=== PATIENT | female | born 1965 | race Caucasian/White ===

== ENCOUNTER 2018-07-26 09:42 | Emergency (ER) | payer OTHER ==
--- OUTSIDE RECORDS SUMMARY | 2018-07-26 09:46 | XMS REPORT ---
:1965 [facility] Address [facility] [address] Sam [address] [place] [address] Care Team Providers Name Role Phone ZHANG JEFFERY Unavailable Unavailable Problems This patient has no known problems. Allergies, Adverse Reactions, Alerts This patient has no known allergies or adverse reactions. Medications This patient has no known medications. Results Test Description Test Time Test Comments Text Results Atomic Results Result Comments FLOW PRA CLASS I AND II 2017-08-05 14:51:00 Test Item Value Reference Range Comments DATE OF SERUM (BEAKER) (test cutr=8127) [id number] SERUM # (BEAKER) (test exir=3587) [id number] FLOW PRA CLASS I AND II (test gcwt=6793) See Scanned Report HEPATITIS B SURFACE [id number] 14:25:00 Test Item Value Reference Range Comments HEPATITIS B SURFACE ANTIBODY (BEAKER) (test 32.5 mIU/mL <8.0 qqzk=750) FLOW PRA CLASS I AND [id number] 13:52:00 Test Item Value Reference Range Comments DATE OF SERUM (BEAKER) (test ywow=4142) [id number] SERUM # (BEAKER) (test jgcm=6039) [id number] FLOW PRA CLASS I AND II (test ztte=5911) See Scanned Report FLOW PRA CLASS I AND [id number] 12:30:00 Test Item Value Reference Range Comments DATE OF SERUM (BEAKER) (test wwex=2189) [id number] SERUM # (BEAKER) (test utre=0415) [id number] FLOW PRA CLASS I AND II (test xxho=0391) See Scanned Report
--- OUTSIDE RECORDS SUMMARY | 2018-07-26 09:46 | XMS REPORT | Clinical Summary ---
:1965 Author Organization [facility] Address [address] [place] [address] Phone Care Team Providers Name Role Phone Unavailable Primary Care Provider Unavailable Allergies No Known Allergies Current Medications Prescription Sig. Disp. Refills Start Date End Date Status amLODIPine (NORVASC) 10 Take 10 mg by mouth Active MG tablet daily On non-dialysis days only. aspirin 81 MG EC tablet Take 81 mg by mouth Active daily. carvedilol (COREG) 6.25 Take 12.5 mg by Active MG tablet mouth daily . lidocaine-prilocaine Apply topically as Active (EMLA) 2.5-2.5 % cream needed (on dialysis days, apply to access arm before tx). calcium Take 1 tablet by Active carbonate-vitamin D3 mouth 3 (three) (CALCIUM-VITAMIN D) 500 times daily with mg(1,250mg) -200 unit meals. per tablet pantoprazole (PROTONIX) Take 40 mg by mouth Active 40 MG tablet daily. sevelamer (RENVELA) 800 Take 1,600 mg by Active mg tablet mouth 3 (three) times daily with meals 2 tablets with all meals and 1 tablet 2 times daily with snacks . calcium carbonate Take 1 tablet by Active (CALCIUM CARBONATE) 300 mouth 3 (three) mg Chew times daily . FOLIC ACID/VITAMIN B Take by mouth daily. Active COMP W-C (CHRISTOPHER-ARNOLDO ORAL) venlafaxine (EFFEXOR) 75 Take 75 mg by mouth Active MG tablet daily. Active Problems Patient Care Coordination Note PCP- Maynor MCDONOUGH No additional problems on file Encounters Date Type Specialty Care Team Description 11/12/2017 Orders Only Lab Elisabeth Smith ESRD (end stage renal Julia, disease) (HCC) (Primary Dx);Patient awaiting renal transplant 08/03/2017 Lab Requisition Lab Saran Rodríguez MD after 07/25/2017 Social History Tobacco Use Types Packs/Day Years Used Date Never Smoker Sex Assigned at Date Recorded Not on file Last Filed Vital Signs Not on file Plan of Treatment Date Type Specialty Care Team Description 09/21/2018 Evaluation Transplant Health Maintenance Due Date Last Done Comments INFLUENZA VACCINE 07/04/2018 Results Flow PRA Class II (05/27/2018 3:16 PM)Only the most recent of2 resultswithin the time period is included. Component Value Ref Range Flow Class II Percent Positive 0 Flow Class Report Comments Specimen Performing Laboratory Blood [facility] ONE Dusty Hancock, MS: [id number], CLIA#[id number] CAP#[id number] [id number] [address] Narrative Disclaimer: This test was developed and its performance characteristics determined by the [facility]. It has not been cleared or approved by the U.S. Food and Drug Administration. The FDA has determined that such clearance or approval is not necessary. This test is used for clinical purposes. It should not be regarded as investigational or for research. This laboratory is certified under the Clinical Laboratory Improvement Amendments of 1988 (CLIA-88) as qualified to perform high complexity clinical laboratory testing. Flow PRA Class I (05/27/2018 3:16 PM)Only the most recent of2 resultswithin the time period is included. Component Value Ref Range Flow Class I Percent Positive 0 Flow Class Report Comments Specimen Performing Laboratory Blood [facility] Dusty Hancock, MS: [id number], CLIA#[id number] CAP#[id number] [id number] [id number] Narrative Disclaimer: This test was developed and its performance characteristics determined by the [facility]. It has not been cleared or approved by the U.S. Food and Drug Administration. The FDA has determined that such clearance or approval is not necessary. This test is used for clinical purposes. It should not be regarded as investigational or for research. This laboratory is certified under the Clinical Laboratory Improvement Amendments of 1988 (CLIA-88) as qualified to perform high complexity clinical laboratory testing. Flow PRA Class I and II (07/28/2017 12:00 PM) Component Value Ref Range Date of Serum [id number] Serum# [id number] Flow PRA Class I and II See Scanned Report Specimen Performing Laboratory Blood [facility] IMMUNE EVALUATION LAB [facility] One [facility] Karissa, MS:[facility] [address] [place] [address] after 07/25/2017
--- NOTE | 2018-07-26 10:01 | ER ---
Nurse's Notes [facility] Name: Poonam Meredith Age: 53 yrs Sex: Female : 1965 Arrival Date: 07/26/2018 Time: 09:46 Bed 18 Private MD: Ar Raygoza S Diagnosis: Allergic contact dermatitis due to plants, except food Presentation: 07/26 09:49 Presenting complaint: Patient states: I got poison elizabeth an week ago and its just getting la1 worse. Transition of care: patient was not received from another setting of care. Onset of symptoms was July 26, 2018. Risk Assessment: Do you want to hurt yourself or someone else? Patient reports no desire to harm self or others. Initial Sepsis Screen: Does the patient meet any 2 criteria? No. Patient's initial sepsis screen is negative. Does the patient have a suspected source of infection? No. Patient's initial sepsis screen is negative. Care prior to arrival: None. 09:49 Method Of Arrival: Ambulatory la1 09:49 Acuity: MAXWELL 5 la1 Triage Assessment: 09:53 General: Appears in no apparent distress. uncomfortable, Behavior is calm, cooperative, bp appropriate for age. Pain: Denies pain. Derm: Rash noted that is vesicular, on right arm and left arm. 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 - Social history:: Smoking status: Patient/guardian denies using tobacco. - Ebola Screening: : No symptoms or risks identified at this time. Screenin:55 Abuse screen: Denies threats or abuse. Denies injuries from another. Nutritional bp screening: No deficits noted. Tuberculosis screening: No symptoms or risk factors identified. Fall Risk None identified. Assessment: 09:54 General: SEE TRIAGE NOTE. VESICULAR RASH ON BUE AFTER POISON ELIZABETH EXPOSURE. bp 10:08 Reassessment: PT D/C HOME AMBULATORY, DX WITH POISON ELIZABETH CONTACT DERMATITIS. bp Vital Signs: 09:50 BP 193 / 98; Pulse 78; Resp 16; Temp 98.0(TE); Pulse Ox 98% on R/A; Weight 61.23 kg; la1 Height 5 ft. 2 in. (157.48 cm); 09:50 Body Mass Index 24.69 (61.23 kg, 157.48 cm) la1 ED Course: 09:46 Patient arrived in ED. mr 09:47 Ar Raygoza MD is Private Physician. mr 09:49 Triage completed. la1 09:50 Renetta Castaneda FNP-C is [facility]. kb 09:50 Nicolas Melara MD is Attending Physician. kb 09:50 Arm band placed on right wrist. la1 09:51 Jimmy Coats, RN is Primary Nurse. bp 09:55 Patient has correct armband on for positive identification. Bed in low position. Call bp light in reach. Side rails up X2. 09:55 No provider procedures requiring assistance completed. Patient did not have IV access bp during this emergency room visit. Administered Medications: No medications were administered Outcome: 10:01 Discharge ordered by . kb 10:08 Discharged to home ambulatory. bp 10:08 Condition: stable 10:08 Discharge instructions given to patient, Instructed on discharge instructions, follow up and referral plans. medication usage, Demonstrated understanding of instructions, follow-up care, medications, Prescriptions given X 1. 10:09 Patient left the ED. bp Signatures: Renetta Castaneda FNP-C FNP-Opal Lakeshia EscuderoAncelmo, RN RN la1 Jimmy Coats, RN RN bp
--- NOTE | 2018-07-26 10:01 | EDPHYS ---
Physician Documentation [facility] Name: Poonam Mreedith Age: 53 yrs Sex: Female : 1965 Arrival Date: 07/26/2018 Time: 09:46 Bed 18 Private MD: Ar Raygoza S ED Physician Nicolas Melara HPI: 07/26 09:59 This 53 yrs old Female presents to ER via Ambulatory with complaints of kb Poison Soha. 09:59 The patient's rash thought to be caused by Contact allergy. The rash is located on the kb left arm and right arm. The rash can be described as macular, papular. Onset: The symptoms/episode began/occurred 1 week(s) ago. Associated signs and symptoms: Pertinent positives: itching. Severity of symptoms: At their worst the symptoms were moderate in the emergency department the symptoms are unchanged. Treatment given at home: Benadryl. The patient has experienced similar episodes in the past, a few times. The patient has not recently seen a physician. 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 - Social history:: Smoking status: Patient/guardian denies using tobacco. - Ebola Screening: : No symptoms or risks identified at this time. ROS: 09:58 Constitutional: Negative for fever, chills, and weight loss, Cardiovascular: Negative kb for chest pain, palpitations, and edema, Respiratory: Negative for shortness of breath, cough, wheezing, and pleuritic chest pain, Abdomen/GI: Negative for abdominal pain, nausea, vomiting, diarrhea, and constipation, Back: Negative for injury and pain, : Negative for injury, bleeding, discharge, and swelling, MS/Extremity: Negative for injury and deformity, Neuro: Negative for headache, weakness, numbness, tingling, and seizure. 09:58 Skin: Positive for rash, of the right arm and left arm. Exam: 09:58 Constitutional: This is a well developed, well nourished patient who is awake, alert, kb and in no acute distress. Head/Face: Normocephalic, atraumatic. Chest/axilla: Normal chest wall appearance and motion. Nontender with no deformity. No lesions are appreciated. Cardiovascular: Regular rate and rhythm with a normal S1 and S2. No gallops, murmurs, or rubs. Normal PMI, no JVD. No pulse deficits. Respiratory: Lungs have equal breath sounds bilaterally, clear to auscultation and percussion. No rales, rhonchi or wheezes noted. No increased work of breathing, no retractions or nasal flaring. Abdomen/GI: Soft, non-tender, with normal bowel sounds. No distension or tympany. No guarding or rebound. No evidence of tenderness throughout. MS/ Extremity: Pulses equal, no cyanosis. Neurovascular intact. Full, normal range of motion. Neuro: Awake and alert, GCS 15, oriented to person, place, time, and situation. Cranial nerves II-XII grossly intact. Motor strength 5/5 in all extremities. Sensory grossly intact. Cerebellar exam normal. Normal gait. 09:58 Skin: consistent with contact dermatitis, on the right arm and left arm. Vital Signs: 09:50 BP 193 / 98; Pulse 78; Resp 16; Temp 98.0(TE); Pulse Ox 98% on R/A; Weight 61.23 kg; la1 Height 5 ft. 2 in. (157.48 cm); 09:50 Body Mass Index 24.69 (61.23 kg, 157.48 cm) la1 MDM: 09:51 Patient medically screened. kb 09:59 Data reviewed: vital signs, nurses notes. Data interpreted: Pulse oximetry: on room air kb is 98 %. Interpretation: normal. Counseling: I had a detailed discussion with the patient and/or guardian regarding: the historical points, exam findings, and any diagnostic results supporting the discharge/admit diagnosis, the need for outpatient follow up, a family practitioner, to return to the emergency department if symptoms worsen or persist or if there are any questions or concerns that arise at home. Administered Medications: No medications were administered Disposition: 18:40 Co-signature as Attending Physician, Nicolas Melara MD available for consultation at ps1 all times. Disposition: 07/26/18 10:01 Discharged to Home. Impression: Allergic contact dermatitis due to plants, except food. - Condition is Stable. - Discharge Instructions: Poison Soha Dermatitis, [id number]. - Prescriptions for Prednisone 20 mg Oral Tablet - take 1 tablet by ORAL route once daily for 5 days; 5 tablet. - Medication Reconciliation Form, Thank You Letter, Antibiotic Education, Prescription Opioid Use form. - Follow up: Emergency Department; When: As needed; Reason: Worsening of condition. Follow up: Private Physician; When: 2 - 3 days; Reason: Recheck today's complaints, Continuance of care, Re-evaluation by your physician. Signatures: Renetta Castaneda FNP-C FNP-Ancelmo Villaseñor RN RN la1 Jimmy Coats RN RN bp Nicolas Melara MD MD ps1 Corrections: (The following items were deleted from the chart) 10:09 10:01 07/26/2018 10:01 Discharged to Home. Impression: Allergic contact dermatitis due bp to plants, except food. Condition is Stable. Forms are Medication Reconciliation Form, Thank You Letter, Antibiotic Education, Prescription Opioid Use. Follow up: Emergency Department; When: As needed; Reason: Worsening of condition. Follow up: Private Physician; When: 2 - 3 days; Reason: Recheck today's complaints, Continuance of care, Re-evaluation by your physician. kb
[2018-07-26 10:22] VITALS: BP 193/98; TEMP 98; O2SAT 98
== END 2018-07-26 10:09 | disposition home or self-care (01) ==
LOC: ER 09:42
DX: L23.7 Allergic contact dermatitis due to plants, except food (principal)
CPT/HCPCS: 99282

== ENCOUNTER 2019-03-18 10:23 | Emergency (ER) | payer OTHER ==
--- OUTSIDE RECORDS SUMMARY | 2019-03-18 10:26 | XMS REPORT | Clinical Summary ---
:1965 Author Organization [facility] Address [address] [place] [address] Care Team Providers Name Role Phone Pcp, No Primary Care Provider Unavailable Allergies No Known Allergies Medications Medication Sig Dispensed Refills Start Date End Date Status amLODIPine (NORVASC) Take 10 mg by 0 Active 10 MG tablet mouth daily On non-dialysis days only. aspirin 81 MG EC Take 81 mg by 0 Active tablet mouth daily. carvedilol (COREG) Take 12.5 mg by 0 Active 6.25 MG tablet mouth daily . lidocaine-prilocaine Apply topically as 0 Active (EMLA) 2.5-2.5 % cream needed (on dialysis days, apply to access arm before tx). calcium Take 1 tablet by 0 Active carbonate-vitamin D3 mouth 3 (three) (CALCIUM-VITAMIN D) times daily with 500 mg(1,250mg) -200 meals. unit per tablet pantoprazole Take 40 mg by 0 Active (PROTONIX) 40 MG mouth daily. tablet sevelamer (RENVELA) Take 1,600 mg by 0 Active 800 mg tablet mouth 3 (three) times daily with meals 2 tablets with all meals and 1 tablet 2 times daily with snacks . calcium carbonate Take 1 tablet by 0 Active (CALCIUM CARBONATE) mouth 3 (three) 300 mg Chew times daily . FOLIC ACID/VITAMIN B Take by mouth 0 Active COMP W-C (CHRISTOPHER-ARNOLDO daily. ORAL) venlafaxine (EFFEXOR) Take 75 mg by 0 Active 75 MG tablet mouth daily. Active Problems Patient Care Coordination Note PCP- Maynor MCDONOUGH No additional problems on file Encounters Date Type Specialty Care Team Description 10/19/2018 Evaluation Transplant Elisabeth Smith Awaiting transplantation of MD Julia kidney (Primary Dx) Alesha Rucker MD 10/08/2018 Orders Only Transplant Phyllis Adame RN Awaiting transplantation of kidney (Primary Dx) 09/19/2018 Telephone Transplant ClaudeSilvanacamilo Appointment 07/28/2018 Orders Only Transplant ProviderBrianna MD 07/26/2018 Documentation Transplant Phyllis Adame RN after 03/17/2018 Family History Medical History Relation Name Comments Diabetes Brother Stomach cancer Mother Lupus Sister Relation Name Status Comments Brother Mother Sister Social History Tobacco Use Types Packs/Day Years Used Date Never Smoker Smokeless Tobacco: Never Used Alcohol Use Drinks/Week oz/Week Comments No Alcohol Habits Answer Date Recorded How often do you have a drink containing alcohol? Never 10/19/2018 How many drinks containing alcohol do you have on a typical Not asked day when you are drinking? How often do you have six or more drinks on one occasion? Not asked Sex Assigned at Date Recorded Not on file Job Start Date Occupation Industry Not on file Not on file Not on file Travel History Travel Start Travel End No recent travel history available. Last Filed Vital Signs Vital Sign Reading Time Taken Blood Pressure 133/81 10/19/2018 1:59 PM [employer] Pulse 65 10/19/2018 1:59 PM [employer] Temperature 36.5 C (97.7 F) 10/19/2018 1:59 PM [employer] Respiratory Rate 20 10/19/2018 1:59 PM [employer] Oxygen Saturation - - Inhaled Oxygen Concentration - - Weight 59.8 kg (131 lb 14.4 oz) 10/19/2018 1:59 PM [employer] Height 157.5 cm (5' 2") 10/19/2018 1:59 PM [employer] Body Mass Index 24.12 10/19/2018 1:59 PM [employer] Plan of Treatment Not on file Procedures Procedure Name Priority Date/Time Associated Diagnosis Comments FLOW PRA CLASS II Routine 12/07/2018 11:53 Awaiting Results for this WITH REFLEX TO AM [employer] transplantation of procedure are in ANTIBODY kidney the results SPECIFICITY section. FLOW PRA CLASS I Routine 12/07/2018 11:53 Awaiting Results for this WITH REFLEX TO AM [employer] transplantation of procedure are in ANTIBODY kidney the results SPECIFICITY section. FLOW PRA CLASS II Routine 08/31/2018 9:45 Patient awaiting renal Results for this WITH REFLEX TO AM [employer] transplant procedure are in ANTIBODY the results SPECIFICITY section. FLOW PRA CLASS I Routine 08/31/2018 9:45 Patient awaiting renal Results for this WITH REFLEX TO AM [employer] transplant procedure are in ANTIBODY the results SPECIFICITY section. FLOW PRA CLASS II Routine 05/27/2018 3:16 Patient awaiting renal Results for this WITH REFLEX TO PM CDT transplant procedure are in ANTIBODY the results SPECIFICITY section. FLOW PRA CLASS I Routine 05/27/2018 3:16 Patient awaiting renal Results for this WITH REFLEX TO PM CDT transplant procedure are in ANTIBODY the results SPECIFICITY section. MM DIGITAL MAMMO Routine 03/23/2018 SCREEN BILATERAL after 03/17/2018 Results FLOW PRA CLASS II WITH REFLEX TO ANTIBODY SPECIFICITY (12/07/2018 11:53 AM [employer]ARIAN) Only the most recent of3 resultswithin the time period is included. Flow Class II Percent Positive 0 [facility] Flow Class Report Comments [facility] Specimen Blood Narrative Performed At Disclaimer: [facility] This test was developed and its performance characteristics determined by the [facility]. It has not been cleared or [...] to perform high complexity clinical laboratory testing. Performing Organization Address City/State/Zipcode Phone Number [facility] ONE Dusty Hancock, [place]: [place] [address] [id number], CLIA#[id number] CAP#[id number] [id number] FLOW PRA CLASS I WITH REFLEX TO ANTIBODY SPECIFICITY (12/07/2018 11:53 AM [employer]IAN) Only the most recent of3 resultswithin the time period is included. Flow Class I Percent Positive 0 [facility] Flow Class Report Comments [facility] Specimen Blood Narrative Performed At Disclaimer: [facility] This test was developed and its performance characteristics determined by the [facility]. It has not been cleared or [...] to perform high complexity clinical laboratory testing. Performing Organization Address City/State/Zipcode Phone Number [facility] Karissa, MS: [place] [address] [id number], CLIA#[id number] CAP#[id number] [id number] MM digital mammo screen bilateral (03/23/2018) Narrative Performed At after 03/17/2018 Insurance Payer Benefit Plan / Group Subscriber ID Type Phone Address [employer] - MEDICARE MGD [employer] MEDICARE ADV xxxxxxxxx Maps Contracted CARE
--- OUTSIDE RECORDS SUMMARY | 2019-03-18 10:26 | XMS REPORT ---
:1965 [facility] Address [facility] [address] Sam [address] [place] [id number] Care Team Providers Name Role Phone ZHANG [...] Range Comments DATE OF SERUM (BEAKER) (test rone=4526) [id number] SERUM # (BEAKER) (test ubke=3127) [id number] FLOW PRA CLASS I AND II (test autj=5849) See Scanned Report HEPATITIS B SURFACE [id number] 14:25:00 Test Item Value Reference Range Comments HEPATITIS B SURFACE ANTIBODY (BEAKER) (test 32.5 mIU/mL <8.0 wfsz=105) FLOW PRA CLASS I AND [id number] 13:52:00 Test Item Value Reference Range Comments DATE OF SERUM (BEAKER) (test tyku=5956) [id number] SERUM # (BEAKER) (test banr=2663) [id number] FLOW PRA CLASS I AND II (test ffck=8336) See Scanned Report FLOW PRA CLASS I AND [id number] 12:30:00 Test Item Value Reference Range Comments DATE OF SERUM (BEAKER) (test easn=8446) [id number] SERUM # (BEAKER) (test kprg=6909) [id number] FLOW PRA CLASS I AND II (test sjvj=9285) See Scanned Report
[2019-03-18 11:18] LABS: Absolute Lymphocytes (CBC) 0.9 K/uL (0.7-4.9); Absolute Monocytes 0.3 K/uL (0.1-1.3); Absolute Neutrophil 3.3 K/uL (1.8-8.0); Basophils % 0.3 % (0-1.3); Eosinophils % 4.6 % (0-4.4); Lymphocytes % 18.4 % (15.3-44.8); MPV 9.5 fL (7.6-11.3); Monocytes % 6.9 % (3.3-12.3); RBC Red Blood Cell Count 2.11 M/uL (3.86-4.86)
[2019-03-18 11:22] LABS: Protime INR 0.85
[2019-03-18 11:24] LABS: Hematocrit 20.1 % (36.0-45.0)
--- NOTE | 2019-03-18 11:25 | RAD REPORT ---
EXAM DESCRIPTION: RAD - Chest Single View - 03/18/2019 11:06 am CLINICAL HISTORY: general weakness Chest pain. COMPARISON: CHEST SINGLE VIEW dated 12/06/2014 FINDINGS: Portable technique limits examination quality. The lungs are grossly clear. The heart is mildly enlarged in size. No displaced fractures.Mild aortic atherosclerosis.
[2019-03-18 11:35] LABS: ALT/SGPT 20 U/L (12-78); AST/SGOT 22 U/L (15-37); Albumin 3.3 g/dL (3.4-5.0); Alkaline Phosphatase 99 U/L (45-117); BUN Blood Urea Nitrogen 18 mg/dL (7-18); Bicarbonate 29 mmol/L (21-32); Bilirubin Direct < 0.1 mg/dL (0-0.2); Bilirubin Total 0.4 mg/dL (0.2-1.0); Glucose Level 119 mg/dL (74-106); Magnesium 2.2 mg/dL (1.8-2.4); NT PRO-BNP 9475 pg/mL (<125); Potassium 3.6 mmol/L (3.5-5.1); Protein, Total 6.5 g/dL (6.4-8.2); Sodium Level 141 mmol/L (136-145); Troponin (Emerg Dept Use Only) < 0.02 ng/mL (0.0-0.045)
--- NOTE | 2019-03-18 12:00 | RAD REPORT ---
EXAM DESCRIPTION: CT - Abdomen Pelvis Wo Contrast - 03/18/2019 11:41 am CLINICAL HISTORY: Abdominal pain. anemia, blood in stools COMPARISON: No comparisons TECHNIQUE: CT imaging of the abdomen and pelvis was performed without contrast. Solid organ, bowel a nd vascular assessment is limited due to lack of IV and oral contrast. All CT scans are performed using dose optimization technique as appropriate and may include automated exposure control or mA/KV adjustment according to patient size. FINDINGS: The lower lung estrada are clear. The liver, spleen, pancreas, adrenal glands are within normal limits for a limited non-contrast exami nation.Atrophy of both kidneys. No bowel obstruction, free air, free fluid or abscess. Rectosigmoid wall thickening is present up to 9 mm. The appendix is not identified as a discrete structure, however, no secondary findings of appen dicitis are identified. The osseous structures are within normal limits. IMPRESSION: Circumferential rectosigmoid wall thickening to 9 mm is noted which may indicate colitis . Followup colonoscopy would be suggested for further assessment if clinically indicated. A limited non-contrast examination was performed as detailed.
[2019-03-18] MEDS ORDERED: PANTOPRAZOLE 40 MG INJ ONE (12:17)
[2019-03-18] MEDS ORDERED: ONDANSETRON 4 MG/2 ML VIAL ONE (12:17)
[2019-03-18] MEDS ORDERED: PANTOPRAZOLE INJ 80 MG in NA CHLORIDE 0.9% 250 ML IV SCH (12:30)
--- NOTE | 2019-03-18 12:52 | EDPHYS ---
Physician Documentation [facility] Name: Poonam Meredith Age: 54 yrs Sex: Female : 1965 Arrival Date: 03/18/2019 Time: 10:29 Bed 4 Private MD: rA Raygoza S ED Physician Nav Hawthorne HPI: 03/18 10:49 This 54 yrs old Female presents to ER via Ambulatory with complaints of cp General Weakness, Bloody Stools. 10:50 The patient presents to the emergency department with bleeding from the rectum/anus. cp Onset: The symptoms/episode began/occurred gradually, at an unknown time. Context: the patient noticed blood with bowel movement 2 days ago. 10:50 Associate signs and symptoms: Pertinent negatives: abdominal pain, constipation, cp diarrhea, dysuria, fever. 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 - Social history:: Smoking status: Patient/guardian denies using tobacco. - Ebola Screening: : No symptoms or risks identified at this time. ROS: 11:00 Constitutional: Negative for body aches, chills, fever, poor PO intake. cp 11:00 Eyes: Negative for injury, pain, redness, and discharge. cp 11:00 Cardiovascular: Negative for chest pain, palpitations. 11:00 Respiratory: Negative for cough, shortness of breath, wheezing. 11:00 Abdomen/GI: Positive for nausea, black/tarry stool, Negative for vomiting, diarrhea, constipation. 11:00 Neuro: Positive for weakness, Negative for altered mental status, headache, syncope. 11:00 All other systems are negative. Exam: 11:15 Head/Face: Normocephalic, atraumatic. cp 11:15 Constitutional: The patient appears in no acute distress, alert, awake, non-diaphoretic, non-toxic, well developed, well nourished. 11:15 Eyes: Periorbital structures: appear normal, Conjunctiva: normal, no exudate, no injection, Sclera: no appreciated abnormality, Lids and lashes: appear normal, bilaterally. 11:15 ENT: External ear(s): are unremarkable, Nose: is normal, Mouth: is normal. 11:15 Chest/axilla: Inspection: normal, Palpation: is normal, no crepitus, no tenderness. 11:15 Cardiovascular: Rate: normal, Rhythm: regular, Edema: is not appreciated, JVD: is not appreciated. 11:15 Respiratory: the patient does not display signs of respiratory distress, Respirations: normal, no use of accessory muscles, no retractions, no splinting, no tachypnea, labored breathing, is not present, Breath sounds: are clear throughout. 11:15 Abdomen/GI: Inspection: abdomen appears normal, Bowel sounds: active, all quadrants, Palpation: soft, in all quadrants, mild abdominal tenderness, in the right lower quadrant, rebound tenderness, is not appreciated, voluntary guarding, is not appreciated, involuntary guarding, is not appreciated. 11:15 : Rectal exam: Stool: black, Guaiac testing: results were positive for occult blood. 11:15 Neuro: Orientation: to person, place \T\ time. Mentation: is normal, Cerebellar function: is grossly normal, Motor: moves all fours, strength is normal. 11:23 ECG was reviewed by the Attending Physician. cp Vital Signs: 10:42 BP 136 / 94; Pulse 92; Resp 18; Temp 98.1; Pulse Ox 98% on R/A; Weight 60.78 kg; Height ph 5 ft. 2 in. (157.48 cm); Pain 0/10; 12:00 BP 145 / 82; Pulse 87; Resp 16; Pulse Ox 100% ; bp 13:00 BP 144 / 84; Pulse 85; Resp 16; Pulse Ox 100% ; bp 14:00 BP 155 / 87; Pulse 88; Resp 16; Temp 97.9; Pulse Ox 99% on R/A; bp 14:29 BP 173 / 87; Pulse 81; Resp 16; Temp 98.7; Pulse Ox 100% ; bp 10:42 Body Mass Index 24.51 (60.78 kg, 157.48 cm) ph MDM: 10:44 Patient medically screened. cp 12:42 Data reviewed: vital signs, nurses notes, lab test result(s), EKG, radiologic studies, cp CT scan, plain films. Physician consultation: DR Paul who will accept patient to [facility]. 03/18 10:48 Order name: Basic Metabolic Panel 03/18 10:48 Order name: CBC with Diff 03/18 10:48 Order name: LFT's 03/18 10:48 Order name: Magnesium 03/18 10:48 Order name: NT PRO-BNP 03/18 10:48 Order name: PT-INR; Complete Time: 11:30 03/18 10:48 Order name: Troponin (emerg Dept Use Only); Complete Time: 11:43 03/18 10:48 Order name: Ptt, Activated; Complete Time: 11:30 03/18 10:48 Order name: Type And Screen 03/18 10:51 Order name: Basic Metabolic Panel; Complete Time: 11:43 EDMS 03/18 11:43 Interpretation: Normal except: GLUC 119; CRE 3.98; GFR 12; CA 8.3. 03/18 10:52 Order name: CBC with Automated Diff; Complete Time: 11:30 EDMS 03/18 11:29 Interpretation: Normal except: RBC 2.11; HGB 6.7; HCT 20.1; PLT 136; EOSINOPHIL % 4.6. 03/18 10:52 Order name: Liver (Hepatic) Function; Complete Time: 11:43 EDMS 03/18 10:52 Order name: Magnesium; Complete Time: 11:43 EDMS 03/18 10:52 Order name: NT PRO-BNP; Complete Time: 11:43 EDVT 03/18 12:28 Interpretation: Abnormal: NT PRO-BNP 9475. 03/18 10:48 Order name: XRAY Chest (1 view); Complete Time: 11:30 03/18 10:48 Order name: EKG; Complete Time: 10:52 03/18 10:48 Order name: Cardiac monitoring; Complete Time: 11:06 03/18 10:48 Order name: IV Saline Lock; Complete Time: 11:07 03/18 10:48 Order name: Labs collected and sent; Complete Time: 11: 03/18 10:48 Order name: O2 Per Protocol; Complete Time: 11:07 03/18 10:48 Order name: O2 Sat Monitoring; Complete Time: 11:07 03/18 11:23 Order name: CT Abd/Pelvis - Without Contrast; Complete Time: 12:14 cp 03/18 11:42 Order name: Packed RBC Leukored [facility] 03/18 11:43 Order name: Misc. Order: transfuse unit over 4 hours; Complete Time: 14:30 cp EC:23 Rate is 87 beats/min. Rhythm is regular. MN interval is normal. QRS interval is normal. cp QT interval is normal. Interpreted by me. Reviewed by me. Administered Medications: 11:45 Drug: ProTONIX 80 mg Route: IVP; Site: right wrist; bp 12:32 Follow up: Response: Nausea is decreased bp 11:45 Drug: ProTONIX 8 mg/hr Route: IV; Rate: 25 ml/hr; Site: right wrist; bp 14:30 Follow up: IV Status: Infusion continued upon transfer bp 11:45 Drug: Zofran 4 mg Route: IVP; Site: right antecubital; bp 12:31 Follow up: Response: Nausea is decreased bp 14:04 Not Given (Physician Discretion): metroNIDAZOLE 500 mg 100 ml IVPB once over 30 mins; bp rectosigmoid colitis 14:05 Not Given (Physician Discretion): Cipro 200 mg 100 ml IVPB once over 60 mins; bp rectosigmoid colitis Disposition: 03/19 12:48 Co-signature as Attending Physician, Nav Hawthorne MD. Disposition: 03/18/19 12:52 Transfer ordered to Other Acute Care Facility. Diagnosis are Gastrointestinal hemorrhage, unspecified, Anemia, Colitis. - Reason for transfer: Higher level of care. - Accepting physician is DR Paul. - Condition is Stable. - Problem is new. - Symptoms have improved. Signatures: Dispatcher [employer] [facility] Alma Angulo RN RN ph Neeraj Harding, PA PA Nav Lang MD MD Jimmy Coats RN RN bp Corrections: (The following items were deleted from the chart) 03/18 11:43 11:43 Normal except: GLUC 119; CRE 3.98; GFR 12. cp cp 14:31 12:52 03/18/2019 12:52 Transfer ordered to Other Acute Care Facility. Diagnosis is bp Gastrointestinal hemorrhage, unspecified; Anemia; Colitis. Reason for transfer: Higher level of care. Accepting physician is DR Paul. Condition is Stable. Problem is new. Symptoms have improved. cp
--- NOTE | 2019-03-18 12:52 | ER ---
Nurse's Notes [facility] Name: Poonam Meredith Age: 54 yrs Sex: Female : 1965 Arrival Date: 03/18/2019 Time: 10:29 Bed 4 Private MD: Ar Raygoza S Diagnosis: Gastrointestinal hemorrhage, unspecified;Anemia;Colitis Presentation: 03/18 10:39 Presenting complaint: Patient states: From dialysis, had blood drawn on 03/07 and Hgb ph was 12, drawn again on and dropped to 9.1, also reports 1 episode of bright red stools on , also c/o fatigue and SOB. Transition of care: patient was not received from another setting of care. Onset of symptoms was March 18, 2019. Risk Assessment: Do you want to hurt yourself or someone else? Patient reports no desire to harm self or others. Initial Sepsis Screen: Does the patient meet any 2 criteria? No. Patient's initial sepsis screen is negative. Does the patient have a suspected source of infection? No. Patient's initial sepsis screen is negative. Care prior to arrival: None. 10:39 Method Of Arrival: Ambulatory ph 10:39 Acuity: MAXWELL 3 ph Triage Assessment: 11:00 General: Appears in no apparent distress. comfortable, Behavior is cooperative, bp appropriate for age, anxious. Pain: Denies pain. EENT: No deficits noted. Neuro: Level of Consciousness is awake, alert, obeys commands, Oriented to person, place, time, situation, Appropriate for age. Cardiovascular: No deficits noted. Respiratory: Airway is patent Respiratory effort is even, unlabored, Respiratory pattern is regular, symmetrical. GI: Reports bloody stool. : No signs and/or symptoms were reported regarding the genitourinary system. Derm: No deficits noted. Musculoskeletal: Circulation, motion, and sensation intact. Range of motion: intact in all extremities. 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 - Social history:: Smoking status: Patient/guardian denies using tobacco. - Ebola Screening: : No symptoms or risks identified at this time. Screenin:01 Abuse screen: Denies threats or abuse. Denies injuries from another. Nutritional bp screening: No deficits noted. Tuberculosis screening: No symptoms or risk factors identified. Fall Risk None identified. Assessment: 11:00 General: SEE TRIAGE NOTE. bp 12:00 Reassessment: PT RETURNED FROM CT. ALL CURRENT ORDERS COMPLETED, TRANSFER PENDING. bp 13:00 Reassessment: ABX AND TRANSFUSION ON HOLD FOR LIMITED PIV ACCESS. PROVIDER AWARE, bp ACCESS ATTEMPT IN PROCESS. 13:45 Reassessment: LEFT EJ BY PROVIDER. REPORT TO STANLEY BOSWELL AT [facility]. PRBC bp REQUESTED FROM BLOOD BANK. 14:00 Reassessment: PRBC STARTED, CONSENT SIGNED AND WITNESSED. bp 14:21 Reassessment: EMS AT B/S FOR TRANSPORT. bp Vital Signs: 10:42 BP 136 / 94; Pulse 92; Resp 18; Temp 98.1; Pulse Ox 98% on R/A; Weight 60.78 kg; Height ph 5 ft. 2 in. (157.48 cm); Pain 0/10; 12:00 BP 145 / 82; Pulse 87; Resp 16; Pulse Ox 100% ; bp 13:00 BP 144 / 84; Pulse 85; Resp 16; Pulse Ox 100% ; bp 14:00 BP 155 / 87; Pulse 88; Resp 16; Temp 97.9; Pulse Ox 99% on R/A; bp 14:29 BP 173 / 87; Pulse 81; Resp 16; Temp 98.7; Pulse Ox 100% ; bp 10:42 Body Mass Index 24.51 (60.78 kg, 157.48 cm) ph ED Course: 10:29 Patient arrived in ED. ag5 10:29 Ar Raygoza MD is Private Physician. ag5 10:42 Triage completed. ph 10:44 [facility]. cp 10:44 Nav Hawthorne MD is Attending Physician. cp 10:49 Jimmy Coats, RN is Primary Nurse. bp 10:56 Inserted saline lock: 22 gauge in right wrist, using aseptic technique. Blood collected.bp 11:01 Patient has correct armband on for positive identification. Bed in low position. Call bp light in reach. Side rails up X2. 11:06 XRAY Chest (1 view) In Process Unspecified. EDMS 11:39 CT completed. Patient tolerated procedure well. Patient moved back from CT. bq 11:41 CT Abd/Pelvis - Without Contrast In Process Unspecified. EDMS 12:59 EKG done, by ED staff, reviewed by Neeraj SANDOVAL. kj1 14:27 No provider procedures requiring assistance completed. Patient transferred, IV remains bp in place. 14:29 Arm band placed on. bp Administered Medications: 11:45 Drug: ProTONIX 80 mg Route: IVP; Site: right wrist; bp 12:32 Follow up: Response: Nausea is decreased bp 11:45 Drug: ProTONIX 8 mg/hr Route: IV; Rate: 25 ml/hr; Site: right wrist; bp 14:30 Follow up: IV Status: Infusion continued upon transfer bp 11:45 Drug: Zofran 4 mg Route: IVP; Site: right antecubital; bp 12:31 Follow up: Response: Nausea is decreased bp 14:04 Not Given (Physician Discretion): metroNIDAZOLE 500 mg 100 ml IVPB once over 30 mins; bp rectosigmoid colitis 14:05 Not Given (Physician Discretion): Cipro 200 mg 100 ml IVPB once over 60 mins; bp rectosigmoid colitis Outcome: 12:52 ER care complete, transfer ordered by . cp 14:27 Transferred by ground EMS to [facility]. bp 14:27 Condition: stable 14:27 Instructed on the need for transfer. 14:31 Patient left the ED. bp Signatures: Dispatcher [employer] EDMS Lucille Avilez Patricia, RN RN ph Neeraj Harding PA PA cp Jimmy Coats, RN RN bp Maria E Gibbs ag5 Harriet Castaneda kj1 Corrections: (The following items were deleted from the chart) 14:21 14:01 Reassessment: LEFT EJ BY PROVIDER. REPORT TO ST[facility]LEY BOSWELL AT [facility]. bp PRBC REQUESTED FROM BLOOD BANK bp
[2019-03-18] MEDS ORDERED: Ciprofloxacin 200mg IV 0 MG/0 ML IV.SOLN. IV ONE (13:21)
[2019-03-18] MEDS ORDERED: METRONIDAZOLE 500mg IVPB 0 MG/0 ML BAG IV ONE (13:21)
[2019-03-18] MEDS ORDERED: NA CHLORIDE 0.9% 250 ML ONE (14:24)
[2019-03-18 15:01] VITALS: BP 173/87; TEMP 98.7; O2SAT 100
--- NOTE | 2019-03-19 10:38 | EKG ---
Test Date: 2019-03-18 Test Time: 11:22:04 Public Policy Associate: DARA MEASUREMENT RESULTS: Intervals: Rate: 87 TN: 170 QRSD: 84 QT: 380 QTc: 457 [place]: P: 50 TN: 170 QRS: 27 T: 80 INTERPRETIVE STATEMENTS: Normal sinus rhythm Nonspecific T wave abnormality Abnormal ECG Compared to ECG 12/06/2014 14:01:57 T-wave abnormality now present ST (T wave) deviation no longer present Electronically Signed On 03-19-19 10:37:38 CDT by Maynor Mcclelland
== END 2019-03-18 14:31 ==
LOC: ER 10:23
DX: K92.2 Gastrointestinal hemorrhage, unspecified (principal); D64.9 Anemia, unspecified; K52.9 Noninfective gastroenteritis and colitis, unspecified; Z79.82 Long term (current) use of aspirin
CPT/HCPCS: 93005; 85025; 80048; 36415; 86900; 83735; 86850; 85610; 86901; 80076; 85730; 84484; 83880; 74176; 71045; 99285; C9113 ×2; P9016; J2405; J0744

== ENCOUNTER 2019-06-17 05:40 | Emergency (ER) | payer OTHER ==
--- OUTSIDE RECORDS SUMMARY | 2019-06-17 05:44 | XMS REPORT | Clinical Summary ---
:1965 Author Organization [facility] Address [address] [place] [address] Care Team Providers Name Role Phone Pcp, [...] of kidney (Primary Dx) 09/19/2018 Telephone Transplant ArceSilvana [email or web address] Appointment 07/28/2018 Orders Only Transplant ProviderBrianna MD 07/26/2018 Documentation Transplant Phyllis Adame RN after 06/16/2018 Family History Medical History Relation Name Comments [...] Taken Blood Pressure 133/81 10/19/2018 1:59 PM GRANULATOR MACHINE OPERATOR Pulse 65 10/19/2018 1:59 PM GRANULATOR MACHINE OPERATOR Temperature 36.5 C (97.7 F) 10/19/2018 1:59 PM GRANULATOR MACHINE OPERATOR Respiratory Rate 20 10/19/2018 1:59 PM GRANULATOR MACHINE OPERATOR Oxygen Saturation - - Inhaled Oxygen Concentration - - Weight 59.8 kg (131 lb 14.4 oz) 10/19/2018 1:59 PM GRANULATOR MACHINE OPERATOR Height 157.5 cm (5' 2") 10/19/2018 1:59 PM GRANULATOR MACHINE OPERATOR Body Mass Index 24.12 10/19/2018 1:59 PM GRANULATOR MACHINE OPERATOR Plan of Treatment Not on file Procedures Procedure Name Priority Date/Time Associated Diagnosis Comments FLOW PRA CLASS II Routine 04/14/2019 11:39 Awaiting Results for this WITH REFLEX TO AM CDT transplantation of procedure are in ANTIBODY kidney the results SPECIFICITY section. FLOW PRA CLASS I Routine 04/14/2019 11:39 Awaiting Results for this WITH REFLEX TO AM CDT transplantation of procedure are in ANTIBODY kidney the results SPECIFICITY section. FLOW PRA CLASS II Routine 12/07/2018 11:53 Awaiting Results for this WITH REFLEX TO AM GRANULATOR MACHINE OPERATOR transplantation of procedure are in ANTIBODY kidney the results SPECIFICITY section. FLOW PRA CLASS I Routine 12/07/2018 11:53 Awaiting Results for this WITH REFLEX TO AM GRANULATOR MACHINE OPERATOR transplantation of procedure are in ANTIBODY kidney the results SPECIFICITY section. FLOW PRA CLASS II Routine 08/31/2018 9:45 Patient awaiting renal Results for this WITH REFLEX TO AM GRANULATOR MACHINE OPERATOR transplant procedure are in ANTIBODY the results SPECIFICITY section. FLOW PRA CLASS I Routine 08/31/2018 9:45 Patient awaiting renal Results for this WITH REFLEX TO AM GRANULATOR MACHINE OPERATOR transplant procedure are in ANTIBODY the results SPECIFICITY section. after 06/16/2018 Results FLOW PRA CLASS II WITH REFLEX TO ANTIBODY SPECIFICITY (04/14/2019 11:39 AM CDT) Only the most recent of3 resultswithin the time period is included. Flow Class II Percent Positive 0 [facility] Flow Class Report Comments [facility] Specimen Blood Narrative Performed At Disclaimer: [facility] This test was developed and its performance characteristics determined by the [facility]. It has not been cleared [...] complexity clinical laboratory testing. Performing Organization Address City/State/[facility] Phone [facility] [address] Kar[address], [place]: [place] [address] [id number], CLIA#[id number] CAP#[id number] UNOS#[id number] FLOW PRA CLASS I WITH REFLEX TO ANTIBODY SPECIFICITY (04/14/2019 11:39 AM CDT) Only the most recent of3 resultswithin the time period is included. Flow Class I Percent Positive 0 [facility] Flow Class Report Comments [facility] Specimen Blood Narrative Performed At Disclaimer: [facility] This test was developed and its performance characteristics determined by the [facility]. It has not been cleared [...] complexity clinical laboratory testing. Performing Organization Address City/State[facility] Phone Number [facility] ONE [facility] Karissa, [place]: [place] [address] [id number], CLIA#[id number] CAP#[id number] UNOS#[id number] after 06/16/2018 Insurance Payer Benefit Plan / Group Subscriber ID Type Phone Address [employer] - MEDICARE MGD [employer] MEDICARE ADV xxxxxxxxx Maps Contracted CARE
--- OUTSIDE RECORDS SUMMARY | 2019-06-17 05:44 | XMS REPORT | Clinical Summary ---
:1965 Author Organization [facility] Address [address] [place] [address] Care Team Providers Name Role Phone Yara Lloyd MD Primary Care Provider Allergies No Known Allergies Medications Medication Sig Dispensed Refills Start Date End Date Status carvedilol (COREG) Take 12.5 mg 0 Active 12.5 MG tablet by mouth 2 (two) times a day with meals. lidocaine-prilocai Apply 0 Active ne (EMLA) 2.5-2.5 topically 3 % cream (three) times a week. 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 amLODIPine Take 10 mg by 0 Active (NORVASC) 10 mg mouth daily. tablet pantoprazole Take 40 mg by 0 Active (PROTONIX) 40 MG mouth daily. EC tablet sevelamer Take 3,200 mg 0 Active (RENVELA) 800 mg by mouth 3 tablet (three) times a day with meals. venlafaxine Take 75 mg by 0 Active (EFFEXOR) 75 MG mouth daily. tablet aspirin (ECOTRIN) Take 81 mg by 0 03/23/20 Discontinued 81 MG enteric mouth daily. 19 (Stop Taking at coated tablet Discharge) [id number]-a Take by mouth. 0 03/23/20 Discontinued cetaminophen 19 (Stop Taking at 12.1-62-01-1000 Discharge) mg/30 mL liquid sevelamer Take 1,600 mg 0 03/23/20 Discontinued (RENVELA) 800 mg by mouth 2 19 (Stop Taking at tablet (two) times a Discharge) day. WITH SNACKS acetaminophen Take 650 mg by 0 03/23/20 Discontinued (TYLENOL) 325 MG mouth every 6 19 (Stop Taking at tablet (six) hours as Discharge) needed for mild pain or fever. sevelamer Take 2 tablets 120 tablet 0 03/23/2019 04/22/20 (RENVELA) 800 mg (1,600 mg 19 tablet total) by mouth 2 (two) times a day for 30 days. Active Problems Problem Noted Date Anemia 03/18/2019 Gastrointestinal hemorrhage 03/18/2019 Overview: Added automatically from request for surgery [id number] Encounters Date Type Specialty Care Team Description Anesthesia Gastroenterology [facility], 9 Event MD Gokul Agosto Blessy, RN Surgery Gastroenterology Haley, ESOPHAGOGASTRODUODENOSCOPY 9 Moazzam (EGD) with biopsy DO [facility] General Internal Gabino, Shahiddebbie Gastrointestinal hemorrhage , 9 - Encounter Medicine MD Prakash unspecified gastrointestinal hemorrhage type (Primary Dx) 9 after 06/16/2018 Family History Medical History Relation Name Comments Diabetes Brother Cancer Mother Lupus Sister Relation Name Status Comments Brother Mother Sister Social History Tobacco Use Types Packs/Day Years Used Date Never Smoker Smokeless Tobacco: Never Used Alcohol Use Drinks/Week oz/Week Comments Never Alcohol Habits Answer Date Recorded How often do you have a drink containing alcohol? Never 03/18/2019 How many drinks containing alcohol do you [...] Vital Signs Vital Sign Reading Time Taken Comments Blood Pressure 143/91 03/23/2019 11:25 AM CDT Pulse 68 03/23/2019 11:25 AM CDT Temperature 36.5 C (97.7 F) 03/23/2019 11:25 AM CDT Respiratory Rate 12 03/23/2019 11:25 AM CDT Oxygen Saturation 96% 03/23/2019 3:25 AM CDT Inhaled Oxygen Concentration - - Weight 63.6 kg (140 lb 4.8 oz) 03/23/2019 3:25 AM CDT Height 157.5 cm (5' 2") 03/18/2019 4:19 PM CDT Body Mass Index 25.66 03/18/2019 4:19 PM CDT Plan of Treatment Health Maintenance Due Date Last Done Comments CERVICAL CANCER SCREENING 1986 BREAST CANCER SCREENING 2015 COLONOSCOPY SCREENING 2015 SHINGLES VACCINES (#1) 2015 INFLUENZA VACCINE 05/04/2019 Procedures Procedure Name Priority Date/Time Associated Diagnosis Comments ESTIMATED GFR Routine 03/23/2019 Results for 5:45 AM CDT this procedure are in the results section. BASIC METABOLIC PANEL Routine 03/23/2019 Results for 5:45 AM CDT this procedure are in the results section. HC COMPLETE BLD COUNT W/AUTO Routine 03/23/2019 Results for DIFF 5:45 AM CDT this procedure are in the results section. HEMODIALYSIS Routine 03/23/2019 12:06 AM CDT TRANSFUSE RED BLOOD CELLS Routine 03/22/2019 2:04 PM CDT PREPARE RBC Routine 03/22/2019 Results for 9:02 AM CDT this procedure are in the results section. TYPE AND SCREEN Routine 03/22/2019 Results for 9:02 AM CDT this procedure are in the results section. HC COMPLETE BLD COUNT W/AUTO Routine 03/22/2019 Results for DIFF 4:30 AM CDT this procedure are in the results section. HEPATITIS B SURFACE ANTIBODY Routine 03/21/2019 Results for 1:15 PM CDT this procedure are in the results section. HEPATITIS B SURFACE AB, Routine 03/21/2019 Results for QUANTITATIVE 1:15 PM CDT this procedure are in the results section. HEPATITIS B SURFACE ANTIGEN Routine 03/21/2019 Results for 1:15 PM CDT this procedure are in the results section. ESTIMATED GFR Routine 03/21/2019 Results for 12:38 PM CDT this procedure are in the results section. BASIC METABOLIC PANEL Routine 03/21/2019 Results for 12:38 PM CDT this procedure are in the results section. CT ANGIOGRAM ABDOMEN PELVIS W Routine 03/21/2019 Results for AND OR WO CONTRAST 8:09 AM CDT this procedure are in the results section. ESTIMATED GFR Routine 03/21/2019 Results for 6:30 AM CDT this procedure are in the results section. BASIC METABOLIC PANEL Routine 03/21/2019 Results for 6:30 AM CDT this procedure are in the results section. HC COMPLETE BLD COUNT W/AUTO Routine 03/21/2019 Results for DIFF 6:30 AM CDT this procedure are in the results section. HEMODIALYSIS Routine 03/21/2019 12:06 AM CDT SURGICAL PATHOLOGY REQUEST Routine 03/20/2019 Results for 3:16 PM CDT this procedure are in the results section. COLONOSCOPY 03/20/2019 Gastrointestinal 11:43 AM CDT hemorrhage, unspecified gastrointestinal hemorrhage type ESOPHAGOGASTRODUODENOSCOPY 03/20/2019 Gastrointestinal (EGD) 11:43 AM CDT hemorrhage, unspecified gastrointestinal hemorrhage type ECG 12-LEAD STAT 03/20/2019 Results for 10:06 AM CDT this procedure are in the results section. ESTIMATED GFR Routine 03/20/2019 Results for 4:35 AM CDT this procedure are in the results section. BASIC METABOLIC PANEL Routine 03/20/2019 Results for 4:35 AM CDT this procedure are in the results section. HC COMPLETE BLD COUNT W/AUTO Routine 03/20/2019 Results for DIFF 4:35 AM CDT this procedure are in the results section. HC COMPLETE BLD COUNT W/AUTO Routine 03/19/2019 Results for DIFF 6:00 AM CDT this procedure are in the results section. ESTIMATED GFR Routine 03/19/2019 Results for 6:00 AM CDT this procedure are in the results section. COMPREHENSIVE METABOLIC PANEL Routine 03/19/2019 Results for 6:00 AM CDT this procedure are in the results section. HEMOGLOBIN & HEMATOCRIT Timed 03/18/2019 Results for 11:50 PM CDT this procedure are in the results section. HEMOGLOBIN & HEMATOCRIT Timed 03/18/2019 Results for 11:20 PM CDT this procedure are in the results section. PREPARE RBC Routine 03/18/2019 Results for 5:02 PM CDT this procedure are in the results section. ESTIMATED GFR Routine 03/18/2019 Results for 5:02 PM CDT this procedure are in the results section. TYPE AND SCREEN Routine 03/18/2019 Results for 5:02 PM CDT this procedure are in the results section. TOTAL IRON BINDING CAPACITY Routine 03/18/2019 Results for 5:02 PM CDT this procedure are in the results section. FOLATE LEVEL Routine 03/18/2019 Results for 5:02 PM CDT this procedure are in the results section. FERRITIN LEVEL Routine 03/18/2019 Results for 5:02 PM CDT this procedure are in the results section. RETICULOCYTE COUNT Routine 03/18/2019 Results for 5:02 PM CDT this procedure are in the results section. PARTIAL THROMBOPLASTIN TIME Routine 03/18/2019 Results for (PTT) 5:02 PM CDT this procedure are in the results section. PROTHROMBIN TIME WITH INR Routine 03/18/2019 Results for 5:02 PM CDT this procedure are in the results section. HC COMPLETE BLD COUNT W/AUTO Routine 03/18/2019 Results for DIFF 5:02 PM CDT this procedure are in the results section. THYROID STIMULATING HORMONE Routine 03/18/2019 Results for 5:02 PM CDT this procedure are in the results section. PHOSPHORUS LEVEL Routine 03/18/2019 Results for 5:02 PM CDT this procedure are in the results section. MAGNESIUM LEVEL Routine 03/18/2019 Results for 5:02 PM CDT this procedure are in the results section. LACTIC ACID LEVEL Routine 03/18/2019 Results for 5:02 PM CDT this procedure are in the results section. HEMOGLOBIN A1C Routine 03/18/2019 Results for 5:02 PM CDT this procedure are in the results section. COMPREHENSIVE METABOLIC PANEL Routine 03/18/2019 Results for 5:02 PM CDT this procedure are in the results section. after 06/16/2018 Results Estimated GFR (03/23/2019 5:45 AM CDT)Only the most recent of6 resultswithin the time period is included. Pathologist [facility] Estimated GFR 4 (A) mL/min/1.73 [facility] Comment: m2 COVERT CatergoryUnitsInterpretation HOSPITAL G1 >=90 Normal or high G2 60-89Mildly decreased [id number] to moderately decreased E5a14-12Acpgshrmbd to severely decreased G4 15-29Severely decreased G5 <15Kidney failure The eGFR was calculated using the Chronic Kidney Disease Epidemiology Collaboration (CKD-EPI) equation. Interpretation is based on recommendations of the National Kidney Foundation-Kidney Disease Outcomes Quality Initiative (NKF-KDOQI) published in 2014. Specimen Plasma specimen Performing Organization Address City/State/Zipcode Phone Number [facility] DEPARTMENT OF PATHOLOGY [address] [place] [address] AND GENOMIC MEDICINE [facility] [address] CBC with platelet and differential (03/23/2019 5:45 AM CDT)Only the most recent of6 resultswithin the time period is included. WBC 4.1 (L) 4.5 - 11.0 k/uL [facility] RBC 3.06 (L) 4.20 - 5.50 [facility] m/uL [facility] HGB 9.4 (L) 12.0 - 16.0 [facility] g/dL [facility] HCT 28.6 (L) 37.0 - 47.0 % [facility] MCV 93.5 82.0 - 100.0 fL [facility] MCH 30.7 27.0 - 34.0 pg [facility] MCHC 32.9 31.0 - 37.0 [facility] gdL [facility] RDW - SD 46.4 37.0 - 55.0 fL [facility] MPV 10.8 6.9 - 11.0 fL [facility] Platelet count 112 (L) 150 - 400 K/uL [facility] Nucleated RBC 0.00 /100 WBC [facility] Neutrophils 59.0 39.0 - 69.0 % [facility] Lymphocytes 24.1 (L) 25.0 - 45.0 % [facility] Monocytes 10.2 (H) 0.0 - 10.0 % [facility] Eosinophils 6.3 (H) 0.0 - 5.0 % [facility] Basophils 0.2 0.0 - 1.0 % [facility] Immature granulocytes 0.2 0.0 - 1.0 % [facility] Specimen Blood Performing Organization Address City/State/Zipcode Phone Number [facility] DEPARTMENT OF PATHOLOGY [address] [place] [address] AND GENOMIC MEDICINE [facility] [address] [place] [address] HOSPITAL Basic metabolic panel (03/23/2019 5:45 AM CDT)Only the most recent of4 resultswithin the time period is included. Sodium 133 (L) 135 - 148 mEq/L [facility] Potassium 5.2 (H) 3.5 - 5.0 mEq/L [facility] Chloride 94 (L) 98 - 112 mEq/L [facility] CO2 29 24 - 31 mEq/L [facility] Anion gap 10@ANIO 7 - 15 mEq/L [facility] BUN 38 (H) 6 - 20 mg/dL [facility] Creatinine 9.04 (H) 0.50 - 0.90 mg/dL [facility] Glucose 97 65 - 99 mg/dL [facility] Calcium 9.0 8.3 - 10.2 mg/dL [facility] Specimen Plasma specimen Performing Organization Address City/[facility] Phone Number [facility] DEPARTMENT OF PATHOLOGY [id number] [place] [address] [place] [address] HOSPITAL Transfuse RBC (03/22/2019 6:24 PM CDT)Only the most recent of3 resultswithin the time period is included.Prepare RBC, 2 Units (03/22/2019 9:02 AM CDT)Only the most recent of2 resultswithin the time period is included. Product name Red Blood Cells [place] [id number], Leukored [facility] Unit number [id number] [facility] Product code [id number] [facility] Dispense status Transfused [facility] Blood expiration [id number] [facility] Blood type code 5100 [facility] Blood type O POSITIVE [facility] Product name Red Blood Cells [place] [address], Leukored [facility] Unit number [id number] [facility] Product code [id number] [facility] Dispense status Transfused [facility] Blood expiration [id number] [facility] Blood type code 5100 [facility] Blood type O POSITIVE [facility] Specimen Blood Performing Organization Address City/[facility]/Zipcode Phone Number [facility] DEPARTMENT OF PATHOLOGY [id number] [place] [address] [place] [address] HOSPITAL Type and screen (03/22/2019 9:02 AM CDT)Only the most recent of2 resultswithin the time period is included. ABO grouping OComment: [facility] 03/22/19 10:08 [facility] RBC available. slel Rh type POS [facility] Antibody screen NEG [facility] (gel) [facility] Specimen Blood Performing Organization Address City/State/Zipcode Phone Number [facility] DEPARTMENT OF PATHOLOGY [address] [place] [address] AND [facility] [address] Hepatitis B surface Ab, quantitative (03/21/2019 1:15 PM CDT) Hepatitis B surface 31.55 IU/L [facility] Comment: The anti-HBs is greater than or equal to 10 IU/L. This patient has either had an antibody response to HBV vaccination, received a transfusion, or has recovered from HBV infection. This patient should be considered immune to hepatitis B. An anti-HBs result greater than or equal to 10 IU/L implies immunity. For post-vaccination antibody testing guidelines for the general public refer to MMWR September 25, 2005/Vol. 54(No. 16);-23, and for healthcare workers refer to MMWR September 22, 2013/Vol. 62(No. 10);-19. Reference Interval: anti-HBs 9.99 IU/L or less ....... Negative 10.00 IU/L or greater .... Positive Results greater than 1,000.00 IU/L are reported as greater than 1,000.00 IU/L. This assay should not be used for blood donor screening, associated re-entry protocols, or for screening Human Cell, Tissues and Cellular and Tissue-Based Products (HCT/P). Performed by [facility], [address] [place], [place] [id number] [email or web address], Kyle Ng MD - Lab. Director Specimen Serum Performing Organization Address City/[facility]/Zipcode Phone Number [facility] [address] [place] [address] [facility] [address] [place] [address] Hepatitis B surface antibody (03/21/2019 1:15 PM CDT) Hepatitis B surface Reactive (A) Non-reactive [facility] Specimen Blood Performing Organization Address City/State/Zipcode Phone Number [facility] DEPARTMENT OF PATHOLOGY AND [address] [place] [id number] [place] [address] [address] [place] [address] Hepatitis B surface antigen (03/21/2019 1:15 PM CDT) Hepatitis B surface Non-reactive Non-reactive [facility] Specimen Blood Performing Organization Address City/State/Zipcode Phone Number [facility] DEPARTMENT OF PATHOLOGY [address] [place] [address] AND [facility] [address] [place] [address] HOSPITAL CTA Abdomen Pelvis W And Or Wo Contrast (03/21/2019 8:09 AM CDT) Specimen Narrative Performed At EXAM: RADIANT CT ANGIOGRAM ABDOMEN PELVIS W AND OR WO CONTRAST INDICATION: UGI bleednonvaricealno clear source on endoscopy COMPARISON: None. TECHNIQUE: Before and after administration of iodinated contrast intravenously, axial CT images of the abdomen and pelvis were obtained. Coronal and sagittal maximal intensity projection images were obtained. 3-D volumetric reconstruction of the arterial system was obtained. Iterative reconstruction and/or automated exposure control techniques were employed to reduce radiation dose. FINDINGS: Limited chest: Visualized portions of the esophagus are normal. Top normal heart size. Visualized pericardium is normal. No adenopathy in visualized chest. Small, simple pleural effusions bilaterally. Mild bibasilar dependent atelectasis. Abdomen: Hypodensity liver adjacent to falciform, likely focal fatty infiltration. Otherwise normal. No CT evidence of cholelithiasis. Moderate concentric thickening of the gallbladder wall which is nonspecific finding that can be seen with acalculous cholecystitis, heart failure/fluid overload, and secondary to adjacent hepatic parenchymal disease. If clinical concern for acute cholecystitis exists, consider further evaluation with HIDA scan. No intrahepatic biliary dilatation. Common bile duct is unremarkable. Pancreas is normal. Mild splenomegaly with spleen measuring up to 12.1 cm long. Bilateral adrenals are normal. Marked renal cortical atrophy bilaterally. 1.3 cm diameter simple cyst left kidney upper pole (series 5, slice 46). Stomach is normal. Duodenum is normal. Remainder of small bowel is normal. Appendix is and not well visualized. Mild concentric thickening of the right colon through the transverse colon wall with submucosal hypodensity compatible with edema. Descending and sigmoid colon are most likely normal. Distal sigmoid colon and rectum demonstrate moderate concentric wall thickening and submucosal hypodensity. Findings are compatible with multifocal colitis and proctitis, infectious versus inflammatory. No evidence of gastric or enterocolonic active extravasation. Pelvis: Small amount of free fluid layering within the pelvis. Rectum is above. Bladder is minimally distended with urine. Despite underdistention probable moderate concentric bladder wall thickening and perivesicular fat stranding, which may be suggestive of cystitis. Recommend correlation with urinalysis. Status post hysterectomy. Bilateral adnexa and vaginal cuff are unremarkable. Bilateral inguinal canals and ischiorectal fossa are normal. Vascular: Descending thoracic aorta: Minimal tortuosity. Normal course and caliber. Abdominal aorta: Normal course caliber. Celiac axis: Conventional celiac arterial anatomy. Normal course and caliber. Superior mesenteric artery: Normal course and caliber. Right renal artery: Solitary. Normal course and caliber. Left renal artery: Duplicated with tiny superior pole branch arising from the aorta superior to the main branch. Otherwise normal course caliber. Inferior mesenteric artery: Normal course and caliber. Right: Iliac arteries: Normal course and caliber. Visualized femoral arteries: Normal course caliber. Left: Iliac arteries: Trace calcified atherosclerotic plaque bifurcation left common iliac artery without associated luminal narrowing. Otherwise normal course and caliber. Visualized femoral arteries: Normal course and caliber. Full evaluation. Portal venous structures limited by contrast bolus timing. Splenic vein, superior mesenteric vein, portal vein, and intrahepatic portal venous branches are normal. No abdominal, pelvic, or inguinal adenopathy. Musculoskeletal: Multilevel Schmorl's nodes. No suspicious osseous soft tissue structures. IMPRESSION: 1. No CT evidence of acute gastrointestinal hemorrhage/active extravasation. 2. Findings suggestive of multifocal colitis and proctitis, infectious versus inflammatory. 3. Findings suggestive of heart failure/fluid overload, including: Top normal heart size, Small bilateral pleural effusions with adjacent dependent atelectasis, small amount of ascites, 4. Possible cystitis. Recommend further evaluation with urinalysis. 5. Moderate concentric thickening of the gallbladder wall. No CT evidence of cholelithiasis. Findings are nonspecific and can be secondary to acalculus cholecystitis, heart failure/fluid overload, and adjacent hepatic parenchymal disease. If indicated, consider further evaluation with gallbladder ultrasound an/or HIDA scan. [facility]-[id number] Procedure Note Interface, Radiology Results Incoming - 03/21/2019 8:35 AM CDT EXAM: CT ANGIOGRAM ABDOMEN PELVIS W AND OR WO CONTRAST INDICATION: UGI bleed nonvariceal no clear source on endoscopy COMPARISON: None. TECHNIQUE: Before and after administration of iodinated contrast intravenously, axial CT images of the abdomen and pelvis were obtained. Coronal and sagittal maximal intensity projection images were obtained. 3-D volumetric reconstruction of the arterial system was obtained. Iterative reconstruction and/or automated exposure control techniques were employed to reduce radiation dose. FINDINGS: Limited chest: Visualized portions of the esophagus are normal. Top normal heart size. Visualized pericardium is normal. No adenopathy in visualized chest. Small, simple pleural effusions bilaterally. Mild bibasilar dependent atelectasis. Abdomen: Hypodensity liver adjacent to falciform, likely focal fatty infiltration. Otherwise normal. No CT evidence of cholelithiasis. Moderate concentric thickening of the gallbladder wall which is nonspecific finding that can be seen with acalculous cholecystitis, heart failure/fluid overload, and secondary to adjacent hepatic parenchymal disease. If clinical concern for acute cholecystitis exists, consider further evaluation with HIDA scan. No intrahepatic biliary dilatation. Common bile duct is unremarkable. Pancreas is normal. Mild splenomegaly with spleen measuring up to 12.1 cm long. Bilateral adrenals are normal. Marked renal cortical atrophy bilaterally. 1.3 cm diameter simple cyst left kidney upper pole (series 5, slice 46). Stomach is normal. Duodenum is normal. Remainder of small bowel is normal. Appendix is and not well visualized. Mild concentric thickening of the right colon through the transverse colon wall with submucosal hypodensity compatible with edema. Descending and sigmoid colon are most likely normal. Distal sigmoid colon and rectum demonstrate moderate concentric wall thickening and submucosal hypodensity. Findings are compatible with multifocal colitis and proctitis, infectious versus inflammatory. No evidence of gastric or enterocolonic active extravasation. Pelvis: Small amount of free fluid layering within the pelvis. Rectum is above. Bladder is minimally distended with urine. Despite underdistention probable moderate concentric bladder wall thickening and perivesicular fat stranding, which may be suggestive of cystitis. Recommend correlation with urinalysis. Status post hysterectomy. Bilateral adnexa and vaginal cuff are unremarkable. Bilateral inguinal canals and ischiorectal fossa are normal. Vascular: Descending thoracic aorta: Minimal tortuosity. Normal course and caliber. Abdominal aorta: Normal course caliber. Celiac axis: Conventional celiac arterial anatomy. Normal course and caliber. Superior mesenteric artery: Normal course and caliber. Right renal artery: Solitary. Normal course and caliber. Left renal artery: Duplicated with tiny superior pole branch arising from the aorta superior to the main branch. Otherwise normal course caliber. Inferior mesenteric artery: Normal course and caliber. Right: Iliac arteries: Normal course and caliber. Visualized femoral arteries: Normal course caliber. Left: Iliac arteries: Trace calcified atherosclerotic plaque bifurcation left common iliac artery without associated luminal narrowing. Otherwise normal course and caliber. Visualized femoral arteries: Normal course and caliber. Full evaluation. Portal venous structures limited by contrast bolus timing. Splenic vein, superior mesenteric vein, portal vein, and intrahepatic portal venous branches are normal. No abdominal, pelvic, or inguinal adenopathy. Musculoskeletal: Multilevel Schmorl's nodes. No suspicious osseous soft tissue structures. IMPRESSION: 1. No CT evidence of acute gastrointestinal hemorrhage/active extravasation. 2. Findings suggestive of multifocal colitis and proctitis, infectious versus inflammatory. 3. Findings suggestive of heart failure/fluid overload, including: Top normal heart size, Small bilateral pleural effusions with adjacent dependent atelectasis, small amount of ascites, 4. Possible cystitis. Recommend further evaluation with urinalysis. 5. Moderate concentric thickening of the gallbladder wall. No CT evidence of cholelithiasis. Findings are nonspecific and can be secondary to acalculus cholecystitis, heart failure/fluid overload, and adjacent hepatic parenchymal disease. If indicated, consider further evaluation with gallbladder ultrasound an/or HIDA scan. [facility]-[id number] Performing Organization Address City/State/Zipcode Phone Number [facility] [address] [place] [address] Surgical pathology request (03/20/2019 3:16 PM CDT) [facility] DEPARTMENT OF PATHOLOGY AND GENOMIC MEDICINE Surgical pathology See link below [facility] DEPARTMENT OF report for PDF Lab PATHOLOGY AND Report GENOMIC MEDICINE Result status This is Final [facility] DEPARTMENT OF Report for PATHOLOGY AND [id number] GENOMIC MEDICINE Specimen Performing Organization Address City/State/Zipcode Phone Number [facility] DEPARTMENT OF PATHOLOGY [address] [place] [address] AND GENOMIC MEDICINE ECG 12 lead (03/20/2019 10:06 AM CDT) Ventricular rate 75 [facility] Atrial rate 75 [facility] NV interval 180 [facility] QRSD interval 84 [facility] QT interval 394 [facility] MUSE QTC interval 439 [facility] MUSE P axis 1 49 [facility] MUSE QRS axis 1 22 [facility] MUSE T wave axis 41 [facility] MUSE EKG impression Normal sinus [facility] MUSE rhythm-Normal ECG-No previous ECGs available-Electronicall y Signed By Golden Kirkpatrick MD ([id number]) on 03/21/2019 7:18:46 AM Specimen Narrative Performed At Performing Organization Address City/[facility]/Zipcode Phone Number [facility] MUSE [address] [place] [address] Comprehensive metabolic panel (03/19/2019 6:00 AM CDT)Only the most recent of2 resultswithin the time period is included. Sodium 138 135 - 148 mEq/L [facility] [place] Potassium 4.5 3.5 - 5.0 mEq/L [facility] [place] Chloride 101 98 - 112 mEq/L [facility] [place] CO2 26 24 - 31 mEq/L [facility] [place] Anion gap 11@ANIO 7 - 15 mEq/L [facility] [place] BUN 26 (H) 6 - 20 mg/dL [facility] [place] Creatinine 5.93 (H) 0.50 - 0.90 [facility] mg/dL [facility] Glucose 85 65 - 99 mg/dL [facility] [place] Calcium 9.0 8.3 - 10.2 [facility] mg/dL [facility] Protein 5.4 (L) 6.3 - 8.3 g/dL [facility] [place] Albumin 3.3 (L) 3.5 - 5.0 g/dL [facility] A/G ratio 1.6 0.7 - 3.8 [facility] [place] Alkaline phosphatase 64 35 - 104 U/L [facility] [place] AST 18 10 - 35 U/L [facility] ALT 12 5 - 50 U/L [facility] Total bilirubin 1.1 0.2 - 1.2 mg/dL [facility] [place] Specimen Plasma specimen Performing Organization Address City/State/Zipcode Phone Number [facility] DEPARTMENT OF PATHOLOGY [address] [id number] AND GENOMIC MEDICINE [facility] [address] [address] HOSPITAL Hemoglobin & hematocrit (03/18/2019 11:50 PM CDT)Only the most recent of2 resultswithin the time period is included. HGB 6.6 (LL) 12.0 - 16.0 g/dL [facility] Comment: [facility] Final results called to and read back by Alphonse Guzman RN at [facility]. 03/19/201900:15 sllg HCT 20.4 (LL) 37.0 - 47.0 % [place] [facility] Comment: [facility] Final results called to and read back by Alphonse Guzman RN at [facility]. 03/19/201900:15 sllg Specimen Blood Performing Organization Address City/[facility]/Zipcode Phone Number [facility] DEPARTMENT OF PATHOLOGY [address] [place] [address] Total iron binding capacity (03/18/2019 5:02 PM CDT) Pathologist [facility] Iron level 68 37 - 145 ug/dL [facility] [place] [place] Iron binding capacity 205 (L) 260 - 460 ug/dL [facility] [place] % Saturation 33.2 15.0 - 38.0 % [facility] [place] Specimen Plasma specimen Performing Organization Address City/[facility] Cent[facility]ode Phone Number [facility] DEPARTMENT OF PATHOLOGY [address] [place] [address] Partial thromboplastin time, activated (03/18/2019 5:02 PM CDT) PTT 29.8 23.0 - 36.0 [facility] Comment: sec [facility] PTT therapeutic range for unfractionated heparin is HOSPITAL 61.0-112.0 seconds which corresponds to Anti-Xa 0.3-0.7 U/ml. Specimen Blood Performing Organization Address City/[facility]/Zipcode Phone Number [facility] DEPARTMENT OF PATHOLOGY [address] [place] [address] Prothrombin time with INR (03/18/2019 5:02 PM CDT) Prothrombin time 12.5 11.5 - 14.5 [facility] INR 1.0 [place] Comment: [facility] International Normalized Ratio (INR) is a [facility][note 3] monitoring tool for patients who are stable on oral anticoagulant therapy. An INR of 2.0-3.0 is suggested for deep vein thrombosis/pulmonary embolism. Specimen Blood Performing Organization Address City/[facility]/Zipcode Phone Number [facility] DEPARTMENT OF PATHOLOGY [address] [place] [address] [place] [address] HOSPITAL Reticulocyte count (03/18/2019 5:02 PM CDT) Retic %, auto 2.0 0.5 - 2.1 % [facility] [place] Retic absolute, auto 0.0480 0.0210 - 0.1155 [facility] m/uL [facility] Specimen Blood Performing Organization Address [facility] Cent[facility]ode Phone Number [facility] DEPARTMENT OF PATHOLOGY [address] [place] [address] [place] [address] HOSPITAL Thyroid stimulating hormone (03/18/2019 5:02 PM CDT) TSH 3.68 0.27 - 4.20 uIU/mL [facility] [place] Specimen Plasma specimen Performing Organization Address City/[facility] Centercode Phone Number [facility] DEPARTMENT OF PATHOLOGY [address] [place] [address] [place] [address] HOSPITAL Phosphorus level (03/18/2019 5:02 PM CDT) Phosphorus 4.1 2.4 - 4.5 mg/dL [facility] [place] Specimen Plasma specimen Performing Organization Address City/[facility]/Zipcode Phone Number [facility] DEPARTMENT OF PATHOLOGY [address] [place] [address] [place] [address] HOSPITAL Magnesium level (03/18/2019 5:02 PM CDT) Magnesium 2.2 1.6 - 2.6 mg/dL [facility] [place] Specimen Plasma specimen Performing Organization Address City/[facility] Cent[facility]ode Phone Number [facility] DEPARTMENT OF PATHOLOGY [id number] [place] [address] [place] [address] HOSPITAL Lactic acid level (03/18/2019 5:02 PM CDT) Lactic acid 1.2 0.5 - 2.2 mmol/L [facility] [place] Specimen Plasma specimen Performing Organization Address City/[facility] Centercode Phone Number [facility] DEPARTMENT OF PATHOLOGY [id number] [place] [address] Hemoglobin A1c (03/18/2019 5:02 PM CDT) Hemoglobin A1C 4.7 4.0 - 5.6 % [facility] Comment: [facility] HbA1c cutoffs for diagnosing diabetes: HOSPITAL 4.0% - 5.6%=normal 5.7% - 6.4%=increased risk for diabetes (prediabetes) >=6.5%=diabetes Goals for glycemic control (ADA 2016) < 7.0%Target for non adults with diabetes. More or less stringent targets may be appropriate for individual patients. <7.5% Target for Children and adolescents with type 1 diabetes. Specimen Blood Performing Organization Address [facility] Centercode Phone Number [facility] DEPARTMENT OF PATHOLOGY [id number] [place] [address] [place] [address] HOSPITAL Folate level (03/18/2019 5:02 PM CDT) Folate 19.9 4.8 - 24.2 ng/mL [facility] Specimen Serum Performing Organization Address City/[facility]/Zipcode Phone Number [facility] DEPARTMENT OF PATHOLOGY AND [address] [place] [address] [address] Ferritin level (03/18/2019 5:02 PM CDT) Ferritin level 466 (H) 13 - 150 ng/mL [facility] Specimen Plasma specimen Performing Organization Address City/State/Zipcode Phone Number [facility] DEPARTMENT OF PATHOLOGY AND [address] [place] [address] GENOMIC MEDICINE [facility] [address] [place] [address] after 06/16/2018 Insurance Payer Benefit Plan / Subscriber ID Effective Dates Phone Address Type Group HUMANA MEDICARE HUMANA MEDICARE xxxxxxxxx 2018-Present PPO PPO/PFFS/ERS MCR (Home) [place] [address] Advance Directives For more information, please contact: [phone] Type Date 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
--- OUTSIDE RECORDS SUMMARY | 2019-06-17 05:45 | XMS REPORT ---
:1965 [facility] [address] Sam [address] [place] [address] Care Team Providers Name Role Phone ZHANG [...] Range Comments DATE OF SERUM (BEAKER) (test unxo=6408) [id number] SERUM # (BEAKER) (test qjbu=5230) [id number] FLOW PRA CLASS I AND II (test krxg=1295) See Scanned Report HEPATITIS B SURFACE [id number] 14:25:00 Test Item Value Reference Range Comments HEPATITIS B SURFACE ANTIBODY (BEAKER) (test 32.5 mIU/mL <8.0 zbor=247) FLOW PRA CLASS I AND [id number] 13:52:00 Test Item Value Reference Range Comments DATE OF SERUM (BEAKER) (test tius=6736) [id number] SERUM # (BEAKER) (test wtyo=3035) [id number] FLOW PRA CLASS I AND II (test pxuz=0525) See Scanned Report FLOW PRA CLASS I AND [id number] 12:30:00 Test Item Value Reference Range Comments DATE OF SERUM (BEAKER) (test zdyy=9006) [id number] SERUM # (BEAKER) (test ppmz=6608) [id number] FLOW PRA CLASS I AND II (test vjxw=0022) See Scanned Report
[2019-06-17] MEDS ORDERED: FAMOTIDINE 20 MG/2 ML VIAL IV ONE ×2 (06:27→10:28)
[2019-06-17] MEDS ORDERED: ONDANSETRON 4 MG/2 ML VIAL ONE (06:27)
[2019-06-17] MEDS ORDERED: MORPHINE 2 MG/ML SYR ONE (06:27)
[2019-06-17] MEDS ORDERED: ONDANSETRON 4 MG (ODT) TAB ONE (07:06)
[2019-06-17 08:08] LABS: Protime INR 0.89
[2019-06-17 08:10] LABS: Absolute Lymphocytes (CBC) 0.6 K/uL (0.7-4.9); Basophils % 0.2 % (0-1.3); Hematocrit 37.8 % (36.0-45.0); Lymphocytes % 7.8 % (15.3-44.8); MPV 9.3 fL (7.6-11.3); RBC Red Blood Cell Count 4.05 M/uL (3.86-4.86)
[2019-06-17 08:38] LABS: ALT/SGPT 19 U/L (12-78); AST/SGOT 21 U/L (15-37); Albumin 3.3 g/dL (3.4-5.0); Alkaline Phosphatase 84 U/L (45-117); BUN Blood Urea Nitrogen 49 mg/dL (7-18); Bicarbonate 22 mmol/L (21-32); Bilirubin Direct 0.2 mg/dL (0-0.2); Bilirubin Total 0.8 mg/dL (0.2-1.0); Glucose Level 80 mg/dL (74-106); Lipase 245 U/L (73-393); Magnesium 2.3 mg/dL (1.8-2.4); NT PRO-BNP 12391 pg/mL (<125); Protein, Total 7.1 g/dL (6.4-8.2); Sodium Level 132 mmol/L (136-145); Troponin (Emerg Dept Use Only) < 0.02 ng/mL (0.0-0.045)
[2019-06-17 08:41] LABS: Potassium 5.7 mmol/L (3.5-5.1)
--- NOTE | 2019-06-17 08:57 | RAD REPORT ---
EXAM DESCRIPTION: Brittnee Single View06/17/2019 6:34 am CLINICAL HISTORY: Abdominal pain COMPARISON: March 2019 FINDINGS: The lungs appear clear of acute infiltrate. The heart is normal size IMPRESSION: No acute abnormalities displayed
[2019-06-17 09:23] LABS: Blood Morphology Comment NOT SEEN (NOT SEEN); Platelet Estimate ADEQ
[2019-06-17] MEDS ORDERED: SOD POLYSTYREN SUL 15 GM/60 ML UCUP ONE (10:05)
[2019-06-17] MEDS ORDERED: D50W 25 GM/50 ML SYRINGE IV ONE (10:05)
[2019-06-17] MEDS ORDERED: CALCIUM GLUCONATE 1 GM IVPB 1 GM/50 ML BAG IV ONE (10:15)
[2019-06-17] MEDS ORDERED: metroNIDAZOLE 500 MG TABLET ONE (10:23)
[2019-06-17] MEDS ORDERED: CIPROFLOXACIN HCL 500 MG TAB ONE (10:23)
[2019-06-17] MEDS ORDERED: INSULIN -REGULAR HUMAN 50 UNIT/0.5 ML ML ONE (10:27)
--- NOTE | 2019-06-17 10:55 | ER ---
Nurse's Notes [facility] Vic[facility] Name: Poonam Meredith Age: 54 yrs Sex: Female : 1965 Arrival Date: 06/17/2019 Time: 05:44 Bed 13 Private MD: Diagnosis: Colitis;Hyperkalemia;Chronic kidney disease, unspecified Presentation: 06/17 05:45 Presenting complaint: Patient states: I am having Nausea, vomiting, and diarrhea. Lower jb4 abdominal and leg cramping. 05:45 Transition of care: patient was not received from another setting of care. Onset of jb4 symptoms was June 17, 2019. Risk Assessment: Do you want to hurt yourself or someone else? Patient reports no desire to harm self or others. Initial Sepsis Screen: Does the patient meet any 2 criteria? No. Patient's initial sepsis screen is negative. Does the patient have a suspected source of infection? Yes: Acute abdominal pain. Care prior to arrival: None. 05:45 Method Of Arrival: Ambulatory jb4 05:45 Acuity: MAXWELL 3 jb4 FIELD ADVISOR: 05:45 LMP N/A - Hysterectomy jb4 Historical: - Allergies: 05:45 No Known Allergies; jb4 - Home Meds: 05:45 aspirin 81 mg Oral TbEC 1 tab once daily [Active]; Coreg 12.5 mg Oral tab 1 tab 2 times jb4 per day [Active]; EMLA 2.5-2.5 % Topical crea [Active]; cinacalcet oral oral [Active]; Norvasc 10 mg Oral tab 1 tab once daily [Active]; pantoprazole 40 mg Oral TbEC 1 tab once daily [Active]; Yara-Arley oral oral [Active]; Renvela 800 mg oral tab 4 tabs 3 times per day [Active]; venlafaxine 75 mg Oral cp24 1 cap once daily [Active]; - PMHx: 05:45 Dialysis; jb4 - PSHx: 05:45 dialysis fistula placement in left arm; Hysterectomy; jb4 - Immunization history:: Adult Immunizations up to date. - Social history:: Smoking status: Patient/guardian denies using tobacco, Patient/guardian denies using alcohol. - Ebola Screening: : No symptoms or risks identified at this time. - Family history:: not pertinent. Screenin:00 Abuse screen: Denies threats or abuse. Nutritional screening: No deficits noted. jb4 Tuberculosis screening: No symptoms or risk factors identified. Fall Risk None identified. Assessment: 06:00 General: Appears in no apparent distress. comfortable, Behavior is calm, cooperative, jb4 appropriate for age. Pain: Complains of pain in abdomen, right leg and left leg Pain does not radiate. Pain currently is 8 out of 10 on a pain scale. Quality of pain is described as crampy. Neuro: Level of Consciousness is awake, alert, obeys commands, Oriented to person, place, time, situation. Cardiovascular: Patient's skin is warm and dry. Respiratory: Airway is patent Respiratory effort is even, unlabored, Respiratory pattern is regular, symmetrical. GI: Abdomen is flat, non-distended, Reports diarrhea, nausea, vomiting. : No deficits noted. No signs and/or symptoms were reported regarding the genitourinary system. EENT: No deficits noted. No signs and/or symptoms were reported regarding the EENT system. Derm: Skin is intact, Skin is pink, warm \T\ dry. 07:10 Reassessment: Patient appears in no apparent distress at this time. Patient and/or jb4 family updated on plan of care and expected duration. Pain level reassessed. Patient is alert, oriented x 3, equal unlabored respirations, skin warm/dry/pink. Report given to ELBERT Mckeon. 08:07 Reassessment: Patient appears in no apparent distress at this time. pt has no IV access sg at this time due to difficult stick and refusing an EJ at this time, will attempt to obtain PIV using ultrasound guided technique, awaiting lab results at this time, will continue to monitor. Vital Signs: 05:45 BP 117 / 80; Pulse 88; Resp 18; Temp 99.0(O); Pulse Ox 97% on R/A; Weight 61.23 kg (R); jb4 Height 5 ft. 2 in. (157.48 cm) (R); Pain 8/10; 06:45 BP 99 / 67; Pulse 81; Resp 16; Pulse Ox 99% on R/A; jb4 10:15 BP 117 / 83; Pulse 75; Resp 13; Pulse Ox 98% on R/A; rv 10:30 BP 126 / 78; Pulse 76; Resp 14; Pulse Ox 99% on R/A; rv 05:45 Body Mass Index 24.69 (61.23 kg, 157.48 cm) jb4 ED Course: 05:44 Patient arrived in ED. ag3 05:45 Arm band placed on right wrist. jb4 05:52 Neeraj Saleh MD is Attending Physician. pascual 05:53 Ray Faustin, RN is Primary Nurse. jb4 05:54 Triage completed. jb4 06:00 Patient has correct armband on for positive identification. Bed in low position. Call jb4 light in reach. Side rails up X 1. Pulse ox on. NIBP on. 06:36 XRAY Chest (1 view) In Process Unspecified. EDMS 06:40 Julio Pickering NP is PHCP. pm1 06:50 CT Abd/Pelvis - Without Contrast In Process Unspecified. EDMS 07:00 Missed attempt(s): 20 gauge in right antecubital area. Bleeding controlled, band aid jb4 applied, catheter tip intact. 07:04 Primary Nurse role handed off by Ray Faustin, RN sg 07:04 Mike Arevalo, ELBERT is Primary Nurse. sg 08:43 Notified Nurse Practitioner and/or Physician Truck Striker of a critical lab result(s), K hb 5.7, CREAT 11. 09:53 Attending Physician role handed off by Neeraj Saleh MD kdr 09:53 Jimbo Conn MD is Attending Physician. kdr 10:25 Inserted saline lock: 22 gauge in right forearm, using aseptic technique. rv 11:18 No provider procedures requiring assistance completed. IV discontinued, intact, rv bleeding controlled, No redness/swelling at site. Pressure dressing applied. Administered Medications: 07:06 Not Given (Other Intervention Used): Zofran 4 mg IVP once; over 2 minutes jb4 07:08 Drug: Zofran 4 mg Route: PO; jb4 11:16 Follow up: Response: No adverse reaction rv 10:30 Drug: Pepcid 20 mg Route: IVP; Site: right forearm; rv 11:15 Follow up: Response: No adverse reaction rv 10:30 Drug: Kayexalate 30 grams Route: PO; rv 11:16 Follow up: Response: No adverse reaction rv 10:30 Drug: Flagyl 500 mg Route: PO; rv 11:17 Follow up: Response: No adverse reaction rv 10:30 Drug: Cipro 250 mg Route: PO; rv 11:17 Follow up: Response: No adverse reaction rv 10:38 Drug: Calcium Gluconate 1 grams Route: IVPB; Infused Over: 60 mins; Site: right forearm;rv 11:00 Follow up: IV Status: Completed infusion; IV Intake: 100ml rv 10:56 Drug: D50W 50 ml Route: IVP; Site: right forearm; rv 11:16 Follow up: Response: No adverse reaction rv 10:56 Drug: Insulin Regular Human 5 units {Co-Signature: em (Jacob Aguilera TOWER EXCAVATOR OPERATOR).} Route: IVP; rv Site: right forearm; 11:16 Follow up: Response: No adverse reaction rv 11:15 Not Given (Patient Refused): morphine 2 mg IVP once; (PAIN>8) RASS on ADMN: Combtv4, rv Very Agttd3, Agttd2, Rstlss1, AlertClm0, Drwsy-1, LtSdtn-2, ModSdtn-3, DpSdtn-4, UnArsble-5 x2 Intake: 11:00 IV: 100ml; Total: 100ml. rv Outcome: 10:54 Discharge ordered by . pm1 11:18 Discharged to home ambulatory. rv 11:18 Condition: good 11:18 Discharge instructions given to patient, Instructed on discharge instructions, follow up and referral plans. medication usage, Demonstrated understanding of instructions, follow-up care, medications, Prescriptions given X 2. 11:19 Patient left the ED. rv Signatures: Dispatcher [employer] Mike Walton RN RN sg Anderson, Corey, MD MD cha Rittger, Kevin, MD MD kdr Marinas, Patrick, NP TURF AND GROUNDS SUPERVISOR pm1 Mary Kate Mcneill RN RN hb Bryson, James, RN RN jb4 Gregory Salvador RN RN rv Gomez, Alice ag3 Jacob Aguilera TOWER EXCAVATOR OPERATOR em
--- NOTE | 2019-06-17 10:56 | EDPHYS ---
Physician Documentation [facility] Name: Poonam Meredith Age: 54 yrs Sex: Female : 1965 Arrival Date: 06/17/2019 Time: 05:44 Bed 13 Private MD: ED Physician Jimbo Conn HPI: 06/17 06:11 This 54 yrs old Female presents to ER via Ambulatory with complaints of pascual Vomiting, Fever, Abdominal Pain. 06:11 The patient presents to the emergency department with nausea, vomiting, diarrhea, that pascual is continuous. Onset: The symptoms/episode began/occurred 2 day(s) ago. Possible causes: unknown. The symptoms are aggravated by nothing. Associated signs and symptoms: The patient has no apparent associated signs or symptoms. Severity of symptoms: At their worst the symptoms were mild moderate in the emergency department the symptoms are unchanged. The patient has not experienced similar symptoms in the past. DICTIONARY EDITOR: 05:45 LMP N/A - Hysterectomy jb4 Historical: - Allergies: 05:45 No Known Allergies; jb4 - Home Meds: 05:45 aspirin 81 mg Oral TbEC 1 tab once daily [Active]; Coreg 12.5 mg Oral tab 1 tab 2 times jb4 per day [Active]; EMLA 2.5-2.5 % Topical crea [Active]; cinacalcet oral oral [Active]; Norvasc 10 mg Oral tab 1 tab once daily [Active]; pantoprazole 40 mg Oral TbEC 1 tab once daily [Active]; Yara-Arley oral oral [Active]; Renvela 800 mg oral tab 4 tabs 3 times per day [Active]; venlafaxine 75 mg Oral cp24 1 cap once daily [Active]; - PMHx: 05:45 Dialysis; jb4 - PSHx: 05:45 dialysis fistula placement in left arm; Hysterectomy; jb4 - Immunization history:: Adult Immunizations up to date. - Social history:: Smoking status: Patient/guardian denies using tobacco, Patient/guardian denies using alcohol. - Ebola Screening: : No symptoms or risks identified at this time. - Family history:: not pertinent. ROS: 06:11 Constitutional: Negative for fever, chills, and weight loss, Eyes: Negative for injury, pascual pain, redness, and discharge, ENT: Negative for injury, pain, and discharge, Neck: Negative for injury, pain, and swelling, Cardiovascular: Negative for chest pain, palpitations, and edema, Respiratory: Negative for shortness of breath, cough, wheezing, and pleuritic chest pain, Back: Negative for injury and pain, : Negative for injury, bleeding, discharge, and swelling, MS/Extremity: Negative for injury and deformity, Skin: Negative for injury, rash, and discoloration, Neuro: Negative for headache, weakness, numbness, tingling, and seizure, Psych: Negative for depression, anxiety, suicide ideation, homicidal ideation, and hallucinations, Allergy/Immunology: Negative for hives, rash, and allergies, Endocrine: Negative for neck swelling, polydipsia, polyuria, polyphagia, and marked weight changes, Hematologic/Lymphatic: Negative for swollen nodes, abnormal bleeding, and unusual bruising. 06:11 Abdomen/GI: Positive for abdominal pain, nausea and vomiting, diarrhea, of the right upper quadrant, left upper quadrant, right lower quadrant and left lower quadrant. Exam: 06:11 Constitutional: This is a well developed, well nourished patient who is awake, alert, pascual and in no acute distress. Head/Face: Normocephalic, atraumatic. Eyes: Pupils equal round and reactive to light, extra-ocular motions intact. Lids and lashes normal. Conjunctiva and sclera are non-icteric and not injected. Cornea within normal limits. Periorbital areas with no swelling, redness, or edema. ENT: Nares patent. No nasal discharge, no septal abnormalities noted. Tympanic membranes are normal and external auditory canals are clear. Oropharynx with no redness, swelling, or masses, exudates, or evidence of obstruction, uvula midline. Mucous membranes moist. Neck: Trachea midline, no thyromegaly or masses palpated, and no cervical lymphadenopathy. Supple, full range of motion without nuchal rigidity, or vertebral point tenderness. No Meningismus. Chest/axilla: Normal chest wall appearance and motion. Nontender with no deformity. No lesions are appreciated. Cardiovascular: Regular rate and rhythm with a normal S1 and S2. No gallops, murmurs, or rubs. Normal PMI, no JVD. No pulse deficits. Respiratory: Lungs have equal breath sounds bilaterally, clear to auscultation and percussion. No rales, rhonchi or wheezes noted. No increased work of breathing, no retractions or nasal flaring. Back: No spinal tenderness. No costovertebral tenderness. Full range of motion. Skin: Warm, dry with normal turgor. Normal color with no rashes, no lesions, and no evidence of cellulitis. MS/ Extremity: Pulses equal, no cyanosis. Neurovascular intact. Full, normal range of motion. Neuro: Awake and alert, GCS 15, oriented to person, place, time, and situation. Cranial nerves II-XII grossly intact. Motor strength 5/5 in all extremities. Sensory grossly intact. Cerebellar exam normal. Normal gait. Psych: Awake, alert, with orientation to person, place and time. Behavior, mood, and affect are within normal limits. 06:11 Abdomen/GI: Inspection: distension, Bowel sounds: normal, Palpation: mild abdominal tenderness, in the right lower quadrant, Liver: no appreciated palpable abnormalities, Hernia: not appreciated. Vital Signs: 05:45 BP 117 / 80; Pulse 88; Resp 18; Temp 99.0(O); Pulse Ox 97% on R/A; Weight 61.23 kg (R); jb4 Height 5 ft. 2 in. (157.48 cm) (R); Pain 8/10; 06:45 BP 99 / 67; Pulse 81; Resp 16; Pulse Ox 99% on R/A; jb4 10:15 BP 117 / 83; Pulse 75; Resp 13; Pulse Ox 98% on R/A; rv 10:30 BP 126 / 78; Pulse 76; Resp 14; Pulse Ox 99% on R/A; rv 05:45 Body Mass Index 24.69 (61.23 kg, 157.48 cm) jb4 MDM: 05:52 Patient medically screened. [facility] 06:15 Data reviewed: vital signs, nurses notes, lab test result(s), EKG, radiologic studies, [facility] CT scan, plain films. 10:20 Physician consultation: Adi Mittal MD was called at 10:01, was contacted at 10:11, pm1 regarding consult, patient's condition, Discussed patient diagnosis of colitis and hyperkalemia. Requested dialysis treatment for her hyperkalemia after treating in the ER. Has a seat for dialysis at 1115. 10:52 Counseling: I had a detailed discussion with the patient and/or guardian regarding: the pm1 historical points, exam findings, and any diagnostic results supporting the discharge/admit diagnosis, lab results, radiology results, the need for outpatient follow up, for definitive care, a brusher hand, to return to the emergency department if symptoms worsen or persist or if there are any questions or concerns that arise at home. 06/17 06:10 Order name: Basic Metabolic Panel [facility] 06/17 06:10 Order name: CBC with Diff; Complete Time: 09:35 [facility] 06/17 06:10 Order name: LFT's; Complete Time: 08:51 [facility] 06/17 06:10 Order name: Magnesium; Complete Time: 08:51 [facility] 06/17 06:10 Order name: NT PRO-BNP; Complete Time: 08:51 [facility] 06/17 06:10 Order name: PT-INR; Complete Time: 08:23 [facility] 06/17 06:10 Order name: Troponin (emerg Dept Use Only); Complete Time: 08:51 [facility] 06/17 06:10 Order name: XRAY Chest (1 view); Complete Time: 09:03 [facility] 06/17 06:10 Order name: Lipase; Complete Time: 08:51 [facility] 06/17 06:10 Order name: CT Abd/Pelvis - Without Contrast [facility] 06/17 06:11 Order name: Basic Metabolic Panel; Complete Time: 08:51 [facility] 06/17 09:24 Order name: Manual Differential; Complete Time: 09:35 [facility] 06/17 06:10 Order name: EKG; Complete Time: 06:12 [facility] 06/17 06:10 Order name: Cardiac monitoring; Complete Time: 06:42 [facility] 06/17 06:10 Order name: EKG - Nurse/Tech; Complete Time: 06:42 [facility] 06/17 06:10 Order name: IV Saline Lock; Complete Time: 08:35 [facility] 06/17 06:10 Order name: Labs collected and sent; Complete Time: 08:35 [facility] 06/17 06:10 Order name: O2 Per Protocol; Complete Time: 06:42 [facility] 06/17 06:10 Order name: O2 Sat Monitoring; Complete Time: 06:42 [facility] Administered Medications: 07:06 Not Given (Other Intervention Used): Zofran 4 mg IVP once; over 2 minutes jb4 07:08 Drug: Zofran 4 mg Route: PO; jb4 11:16 Follow up: Response: No adverse reaction rv 10:30 Drug: Pepcid 20 mg Route: IVP; Site: right forearm; rv 11:15 Follow up: Response: No adverse reaction rv 10:30 Drug: Kayexalate 30 grams Route: PO; rv 11:16 Follow up: Response: No adverse reaction rv 10:30 Drug: Flagyl 500 mg Route: PO; rv 11:17 Follow up: Response: No adverse reaction rv 10:30 Drug: Cipro 250 mg Route: PO; rv 11:17 Follow up: Response: No adverse reaction rv 10:38 Drug: Calcium Gluconate 1 grams Route: IVPB; Infused Over: 60 mins; Site: right forearm;rv 11:00 Follow up: IV Status: Completed infusion; IV Intake: 100ml rv 10:56 Drug: D50W 50 ml Route: IVP; Site: right forearm; rv 11:16 Follow up: Response: No adverse reaction rv 10:56 Drug: Insulin Regular Human 5 units {Co-Signature: em (Jacob Aguilera ELECTRICAL INSTRUMENT MAKER).} Route: IVP; rv Site: right forearm; 11:16 Follow up: Response: No adverse reaction rv 11:15 Not Given (Patient Refused): morphine 2 mg IVP once; (PAIN>8) RASS on ADMN: Combtv4, rv Very Agttd3, Agttd2, Rstlss1, AlertClm0, Drwsy-1, LtSdtn-2, ModSdtn-3, DpSdtn-4, UnArsble-5 x2 Disposition: 06/17/19 10:54 Discharged to Home. Impression: Colitis, Hyperkalemia, Chronic kidney disease, unspecified. - Condition is Stable. - Discharge Instructions: Hyperkalemia, Colitis. - Prescriptions for Cipro 250 mg Oral Tablet - take 1 tablet by ORAL route once daily for 10 days; 10 tablet. Flagyl 500 mg Oral Tablet - take 1 tablet by ORAL route every 8 hours for 10 days; 30 tablet. - Medication Reconciliation Form, Thank You Letter, Antibiotic Education, Prescription Opioid Use form. - Follow up: Emergency Department; When: As needed; Reason: Worsening of condition. Follow up: Private Physician; When: 2 - 3 days; Reason: Recheck today's complaints, Continuance of care, Re-evaluation by your physician. - Problem is new. - Symptoms have improved. Addendum: 06/19/2019 08:34 Co-signature as Attending Physician, Jimbo Conn MD I agree with the assessment and c velasco plan of care. Signatures: Dispatcher [employer] EDNeeraj Valdes MD MD cha Marinas, Patrick, MEDICAL ACCOUNTING CLERK MEDICAL ACCOUNTING CLERK pm1 Ray Faustin, RN RN jb4 Gregory Salvador, RN RN Jacob Aguilera ELECTRICAL INSTRUMENT MAKER em Corrections: (The following items were deleted from the chart) 06/17 11:19 10:54 06/17/2019 10:54 Discharged to Home. Impression: Colitis; Hyperkalemia; Chronic rv kidney disease, unspecified. Condition is Stable. Forms are Medication Reconciliation Form, Thank You Letter, Antibiotic Education, Prescription Opioid Use. Follow up: Emergency Department; When: As needed; Reason: Worsening of condition. Follow up: Private Physician; When: 2 - 3 days; Reason: Recheck today's complaints, Continuance of care, Re-evaluation by your physician. Problem is new. Symptoms have improved. pm1
[2019-06-17 11:33] VITALS: TEMP 99
[2019-06-17 11:37] VITALS: BP 126/78; O2SAT 99
--- NOTE | 2019-06-18 18:25 | EKG ---
Test Date: 2019-06-17 Test Time: 06:27:56 Sanitation Director: SHARON MEASUREMENT RESULTS: Intervals: Rate: 82 ID: [id number] QRSD: 72 QT: 350 QTc: 408 [place]: P: 27 ID: [id number] QRS: 1 T: 54 INTERPRETIVE STATEMENTS: Normal sinus rhythm Possible Anterior infarct, age undetermined Abnormal ECG Compared to ECG 03/18/2019 11:22:04 Myocardial infarct finding now present T-wave abnormality no longer present Electronically Signed On 06-18-19 18:23:01 CDT by Levy Daniels
--- NOTE | 2019-06-19 11:26 | RAD REPORT ---
EXAM DESCRIPTION: CT - Abdomen Pelvis Wo Contrast - 06/17/2019 9:18 am CLINICAL HISTORY: The patient is 54 years old and is Female; ABD PAIN TECHNIQUE: Axial computed tomography images of the abdomen and pelvis without intravenous contrast. Sagittal and coronal reformatted images were created and reviewed. This CT exam was performed usi ng one or more of the following dose reduction techniques: automated exposure control, adjustment o f the mA and/or kV according to patient size, and/or use of iterative reconstruction technique. COMPARISON: CT of the abdomen and pelvis March 18, 2019. FINDINGS: LUNG BASES: Unremarkable. No mass. No consolidation. ABDOMEN: LIVER: Homogeneous without focal mass. GALLBLADDER AND BILE DUCTS: The gallbladder is contracted. PANCREAS: Unremarkable. No ductal dilation. SPLEEN: Unremarkable. ADRENALS: Unremarkable. No mass. KIDNEYS AND URETERS: The kidneys are atrophic. STOMACH AND BOWEL: The stomach is minimally distended with food contents. The small bowel is rel atively normal in caliber. A moderate amount of stool is present throughout the colon. Mild colonic w all thickening with surrounding inflammation involving the majority the colon is present. There is no bowel obstruction. PELVIS: APPENDIX: The appendix is not definitively visualized. However, there are no inflammatory change s seen at the expected location of the appendix to suggest appendicitis. BLADDER: The bladder is nearly empty. No stones. REPRODUCTIVE: The patient is status post hysterectomy. ABDOMEN and PELVIS: INTRAPERITONEAL SPACE: Unremarkable. No free air. No significant fluid collection. BONES/JOINTS: Mild sclerosis of the bones is noted which may be secondary to medical renal disea se. SOFT TISSUES: The soft tissues are normal. VASCULATURE: Unremarkable. No abdominal aortic aneurysm. LYMPH NODES: Unremarkable. No enlarged lymph nodes. IMPRESSION: Findings suggestive of mild diffuse colitis. Electronically signed by: Ara Conti MD 06/17/2019 7:34 AM CDT Due to temporary technical issues with the PACS/Fluency reporting system, reports are being signed by the in house radiologist as a courtesy to ensure prompt reporting. The interpreting radiologist is f ully responsible for the content of the report.
== END 2019-06-17 11:19 | disposition home or self-care (01) ==
LOC: ER 05:40
DX: K52.9 Noninfective gastroenteritis and colitis, unspecified (principal); E87.6 Hypokalemia; N18.6 End stage renal disease; Z99.2 Dependence on renal dialysis; Z79.82 Long term (current) use of aspirin
CPT/HCPCS: 96365; 93005; 85025; 80048; 36415; 83735; 85610; 80076; 84484; 83690; 83880; 74176; 71045; 96375; 99284; J0610; J2270; J2405

== ENCOUNTER 2020-02-05 12:58 | Emergency (ER) | payer OTHER ==
--- OUTSIDE RECORDS SUMMARY | 2020-02-05 13:00 | XMS REPORT | Summary of Care ---
:1965 Author Organization [facility] - Health Address [address] [place] [address] Care Team Providers Name Role Phone Unavailable Primary Care Provider Unavailable Encounter Details Date Type Department Care Team Description 01/17/2020 Abstract [facility] Transplant- Jimmie Jimenez Pre-transplant Elizabeth A, MD evaluation for kidney [facility] [address] [facility] transplant (Primary [address] [facility] [place] Dx) [place] [id number] Allergies No Known Allergiesdocumented as of this encounter (statuses as of 01/17/2020) Medications Medication Sig Dispensed Refills Start Date End Date Status amLODIPine (NORVASC) 10 Take 1 Tab by 30 Tab 3 08/28/2014 Active mg tablet mouth daily. aspirin 81 mg chewable Take 1 Tab by 30 Tab 3 08/28/2014 Active tablet mouth daily. CHRISTOPHER-ARNOLDO 0.8 mg tablet 6 11/01/2014 Active sevelamer (RENVELA) 800 Take 800 mg by 0 Active mg tablet mouth 3 (three) times daily with meals. pantoprazole (PROTONIX) Take 1 Tab by 30 Tab 3 02/26/2015 Active 40 mg EC mouth daily. tabletIndications: Melena Venlafaxine 75 mg Take by mouth. 0 Active tablet carvedilol (COREG) 12.5 Take 1 tablet by 90 tablet 1 6 Active mg tablet mouth daily. documented as of this encounter (statuses as of 01/17/2020) Active Problems Problem Noted Date Essential hypertension 08/12/2016 Chest pain 08/22/2014 CKD (chronic kidney disease) stage 5, GFR less than 15 ml/min 08/22/2014 Anemia 08/22/2014 Lower GI bleed 08/22/2014 CKD (chronic kidney disease) stage V requiring chronic dialysis 08/22/2014 ARELY (acute kidney injury) 08/21/2014 HTN (hypertension) documented as of this encounter (statuses as of 01/17/2020) Social History Tobacco Use Types Packs/Day Years Used Date Never Smoker Smokeless Tobacco: Never Used Alcohol Use Drinks/Week oz/Week Comments No Sex Assigned at Date Recorded Not on file Job Start Date Occupation Industry Not on file Not on file Not on file Travel History Travel Start Travel End No recent travel history available. documented as of this encounter Last Filed Vital Signs Not on filedocumented in this encounter Plan of Treatment Name Type Priority Associated Diagnoses Order S chedule FLOW CYTOMETRY XM LAB Routine Pre-transplant 30 Occur rences starting evaluation for kidney 2019 until transplant 07/18/2021 Health Maintenance Due Date Last Done Comments DTaP,Tdap,and Td Vaccines (1 02/12/1976 - Tdap) PAP SMEAR 1986 Breast Cancer Screening 2005 (MAMMOGRAM) Zoster Recombinant Vaccine 2015 (SHINGRIX) (1 of 2) INFLUENZA VACCINE (#1) 2019 COLONOSCOPY 11/28/2024 11/28/2014 HEPATITIS C (HCV) SCREEN Completed 06/23/2017, 08/22/2014 PNEUMOCOCCAL 0-64 YEARS Aged Out No longe r eligible based COMBINED SERIES on patient's age to complete this to pic documented as of this encounter Results Not on filedocumented in this encounter Visit Diagnoses Diagnosis Pre-transplant evaluation for kidney tra nsplant - Primary documented in this encounter Insurance Payer Benefit Plan / Subscriber ID Effective Dates Phone Addre ss Type Group HUMANA - HUMANA [id number] 2018-[facility] Adv MANAGED MEDICARE ERS t PPO MEDICARE documented as of this encounter
--- OUTSIDE RECORDS SUMMARY | 2020-02-05 13:00 | XMS REPORT ---
:1965 Author Organization [facility] t Address [address] [place] [address] Care Team Providers Name Role Phone Salvatore JEFFERY Unavailable Unavailable Problems This patient has no known problems. Allergies, Adverse Reactions, Alerts This patient has no known allergies or adverse reactions. Medications This patient has no known medications. Results Test Description Test Time Test Comments Text Results Atomic Results Result Comments FLOW PRA CLASS I AND II 2017-08-05 14:51:00 Test Item Value Reference Range Comments DATE OF SERUM (BEAKER) (test code = 2288) [id number] SERUM # (BEAKER) (test code = 2290) [id number] FLOW PRA CLASS I AND II (test code = 2421) See Scanned Report HEPATITIS B SURFACE [id number] 14:25:00 Test Item Value Reference Range Comments HEPATITIS B SURFACE ANTIBODY (BEAKER) (test code 32.5 mIU/mL <8.0 = 647) FLOW PRA CLASS I AND [id number] 13:52:00 Test Item Value Reference Range Comments DATE OF SERUM (BEAKER) (test code = 2288) [id number] SERUM # (BEAKER) (test code = 2290) [id number] FLOW PRA CLASS I AND II (test code = See Scanned Report 2421) FLOW PRA CLASS I AND [id number] 12:30:00 Test Item Value Reference Range Comments DATE OF SERUM (BEAKER) (test code = 2288) [id number] SERUM # (BEAKER) (test code = 2290) [id number] FLOW PRA CLASS I AND II (test code = See Scanned Report 2421)
[2020-02-05] MEDS ORDERED: dexAMETHasone 4 MG TAB ONE (13:51)
--- NOTE | 2020-02-05 13:56 | ER ---
Nurse's Notes [facility] Name: Poonam Meredith Age: 54 yrs Sex: Female : 1965 Arrival Date: 02/05/2020 Time: 13:00 Bed 10 Private MD: Ar Raygoza S Diagnosis: Irritant contact dermatitis;Edema, unspecified Presentation: 02/04 13:09 Chief complaint: Patient states: Rash with itching to body since . Believes its ll1 poison oak rash. Coronavirus screen: Proceed with normal triage. Patient denies a cough. Patient denies shortness of breath or difficulty breathing. Patient denies measured and/or subjective temperature greater than 100.4F prior to today's visit. Patient denies travel on a cruise ship or to a country the [facility] currently lists as an affected area. Patient denies contact with known and/or suspected case of COVID-19. Ebola Screen: Patient denies travel to an Ebola-affected area in the 21 days before illness onset. Onset: The symptoms/episode began/occurred 5 day(s) ago. Anaphylaxis evaluation, the patient reports or I have noted the following symptoms which indicate a significant risk of anaphylaxis: angioedema. Initial Sepsis Screen: Does the patient meet any 2 criteria? No. Patient's initial sepsis screen is negative. Does the patient have a suspected source of infection? No. Patient's initial sepsis screen is negative. Risk Assessment: Do you want to hurt yourself or someone else? Patient reports no desire to harm self or others. Onset of symptoms was February 02, 2020. 13:09 Method Of Arrival: Ambulatory ll1 13:09 Acuity: MAXWELL 4 ll1 Historical: - Allergies: 13:11 No Known Allergies; ll1 - PMHx: 13:11 Dialysis; ll1 - PSHx: 13:11 dialysis fistula placement in left arm; Hysterectomy; ll1 - Immunization history:: Adult Immunizations up to date. - Social history:: Patient/guardian denies using alcohol, street drugs, tobacco products, Smoking status: unknown. Screenin:53 Abuse screen: Denies threats or abuse. Denies injuries from another. Nutritional ss screening: No deficits noted. Tuberculosis screening: Never had TB. Fall Risk None identified. Assessment: 13:22 General: Appears in no apparent distress. comfortable, Behavior is calm, cooperative. ss Pain: Denies pain. Neuro: Level of Consciousness is awake, alert, obeys commands, Oriented to person, place, time, situation. Cardiovascular: Capillary refill < 3 seconds is brisk in bilateral fingers. Respiratory: Airway is patent Respiratory effort is even, unlabored, Respiratory pattern is regular, symmetrical, Breath sounds are clear bilaterally. Denies cough, shortness of breath. GI: Patient currently denies diarrhea, nausea, vomiting. : No signs and/or symptoms were reported regarding the genitourinary system. EENT: Nares are clear Oral mucosa is moist. Throat is clear. Derm: Skin is dry, Skin is pink, warm \T\ dry. normal. Musculoskeletal: Circulation, motion, and sensation intact. Range of motion: intact in all extremities, Swelling absent. Vital Signs: 13:09 BP 197 / 100; Pulse 80; Resp 18; Temp 97.3; Pulse Ox 100% ; Pain 0/10; ll1 ED Course: 13:00 Patient arrived in ED. am2 13:00 Ar Raygoza MD is Private Physician. am2 13:11 Triage completed. ll1 13:11 Arm band placed on Patient notified of wait time. ll1 13:30 Shelbi Mayes FNP-C [facility]. snw 13:30 Adair Hernadez MD is Attending Physician. snw 13:46 Fannie Ruiz RN is Primary Nurse. ss 13:53 Patient has correct armband on for positive identification. Bed in low position. Call ss light in reach. 13:53 Patient maintains SpO2 saturation greater than 95% on room air. ss 14:16 No provider procedures requiring assistance completed. Patient did not have IV access ss during this emergency room visit. Administered Medications: 13:46 Drug: Decadron 8 mg Route: PO; ss 14:16 Follow up: Response: Medication administered at discharge. ss Outcome: 13:56 Discharge ordered by . snw 14:16 Discharged to home ambulatory. ss 14:16 Condition: good 14:16 Discharge instructions given to patient, Instructed on discharge instructions, follow up and referral plans. Demonstrated understanding of instructions, follow-up care, medications. 14:18 Patient left the ED. ss Signatures: Shelbi Mayes FNP-C MACHINE FILLER SERVICER-[facility] Fannie Ruiz, RN RN ss Floresita Booker am2 Angela Zacarias, RN RN ll1
--- NOTE | 2020-02-05 13:56 | EDPHYS ---
Physician Documentation [facility] Name: Poonam Meredith Age: 54 yrs Sex: Female : 1965 Arrival Date: 02/05/2020 Time: 13:00 Bed 10 Private MD: Ar Raygoza S ED Physician Adair Hernadez HPI: 02/04 14:00 This 54 yrs old Female presents to ER via Ambulatory with complaints of Rash, snw Allergic Reaction. 14:00 The patient's rash thought to be caused by Contact allergy. The rash is located on the snw body diffusely. The rash can be described as patchy. Onset: The symptoms/episode began/occurred suddenly. Associated signs and symptoms: Pertinent positives: itching, swelling of lips, Pertinent negatives: difficulty breathing, fever, Pain swelling of throat, swelling of tongue. Severity of symptoms: At their worst the symptoms were mild moderate. It is unknown whether or not the patient has had similar symptoms in the past. Dialysis tomorrow. Pt clearing fence and thinks she came in contact with poison oak. Historical: - Allergies: 13:11 No Known Allergies; ll1 - PMHx: 13:11 Dialysis; ll1 - PSHx: 13:11 dialysis fistula placement in left arm; Hysterectomy; ll1 - Immunization history:: Adult Immunizations up to date. - Social history:: Patient/guardian denies using alcohol, street drugs, tobacco products, Smoking status: unknown. ROS: 13:59 Constitutional: Negative for fever, chills, and weight loss, Eyes: Negative for injury, snw pain, redness, and discharge, swelling of face ENT: Negative for injury, pain, and discharge, Neck: Negative for injury, pain, and swelling, Cardiovascular: Negative for chest pain, palpitations, and edema, Respiratory: Negative for shortness of breath, cough, wheezing, and pleuritic chest pain, Abdomen/GI: Negative for abdominal pain, nausea, vomiting, diarrhea, and constipation, Back: Negative for injury and pain, : Negative for injury, bleeding, discharge, and swelling, MS/Extremity: Negative for injury and deformity, Neuro: Negative for headache, weakness, numbness, tingling, and seizure. 13:59 Skin: Positive for rash. Exam: 13:42 Constitutional: This is a well developed, well nourished patient who is awake, alert, snw and in no acute distress. ENT: Nares patent. No nasal discharge, no septal abnormalities noted. Tympanic membranes are normal and external auditory canals are clear. Oropharynx with no redness, swelling, or masses, exudates, or evidence of obstruction, uvula midline. Mucous membranes moist. Neck: Trachea midline, no thyromegaly or masses palpated, and no cervical lymphadenopathy. Supple, full range of motion without nuchal rigidity, or vertebral point tenderness. No Meningismus. Chest/axilla: Normal chest wall appearance and motion. Nontender with no deformity. No lesions are appreciated. Respiratory: Lungs have equal breath sounds bilaterally, clear to auscultation and percussion. No rales, rhonchi or wheezes noted. No increased work of breathing, no retractions or nasal flaring. Abdomen/GI: Soft, non-tender, with normal bowel sounds. No distension or tympany. No guarding or rebound. No evidence of tenderness throughout. Back: No spinal tenderness. No costovertebral tenderness. Full range of motion. Skin: Warm, dry with normal turgor. Normal color with no rashes, no lesions, and no evidence of cellulitis. MS/ Extremity: Pulses equal, no cyanosis. Neurovascular intact. Full, normal range of motion. Neuro: Awake and alert, GCS 15, oriented to person, place, time, and situation. Cranial nerves II-XII grossly intact. Motor strength 5/5 in all extremities. Sensory grossly intact. Cerebellar exam normal. Normal gait. Psych: Awake, alert, with orientation to person, place and time. Behavior, mood, and affect are within normal limits. 13:42 Eyes: Pupils equal round and reactive to light, extra-ocular motions intact. Lids and lashes normal. Conjunctiva and sclera are non-icteric and not injected. Cornea within normal limits. Periorbital areas with no swelling, redness, or edema. 13:42 Head/face: Noted is swelling, that is moderate, of the right eye, left eye and mouth. 13:42 Cardiovascular: Rate: normal, Rhythm: regular, Pulses: no pulse deficits are appreciated, Heart sounds: murmur, grade 4 over 6, JVD: is noted bilaterally. Vital Signs: 13:09 BP 197 / 100; Pulse 80; Resp 18; Temp 97.3; Pulse Ox 100% ; Pain 0/10; ll1 MDM: 13:35 Patient medically screened. snw 13:56 Data reviewed: vital signs, nurses notes. Data interpreted: Pulse oximetry: on room air snw is 100 %. Interpretation: normal. Counseling: I had a detailed discussion with the patient and/or guardian regarding: the historical points, exam findings, and any diagnostic results supporting the discharge/admit diagnosis, the presence of at least one elevated blood pressure reading (>120/80) during this emergency department visit, the need for outpatient follow up, for definitive care, to return to the emergency department if symptoms worsen or persist or if there are any questions or concerns that arise at home. Special discussion: I have referred the patient to see his PCP for further evaluation of high blood pressure. Based on the history and exam findings, there is no indication for further emergent testing or inpatient evaluation. I discussed with the patient/guardian the need to see the primary care provider for further evaluation of the symptoms. 02/04 13:42 Order name: Ice pack; Complete Time: 13:42 snw Administered Medications: 13:46 Drug: Decadron 8 mg Route: PO; ss 14:16 Follow up: Response: Medication administered at discharge. ss Disposition: 14:38 Co-signature as Attending Physician, Adair Hernadez MD. rn Disposition: 02/05/20 13:56 Discharged to Home. Impression: Irritant contact dermatitis, Edema, unspecified. - Condition is Stable. - Discharge Instructions: Contact Dermatitis, Edema, Hypertension, Rash, Cryotherapy. - Medication Reconciliation Form, Thank You Letter, Antibiotic Education, Prescription Opioid Use form. - Follow up: Emergency Department; When: As needed; Reason: Worsening of condition. Follow up: Private Physician; When: 1 - 2 days; Reason: Recheck today's complaints, Continuance of care, Re-evaluation by your physician. Signatures: Shelbi Mayes, [employer] [facility] [employer] [facility] Adair Hernadez MD MD rn Smirch, Shelby, RN RN Angela Hunt RN RN ll1 Corrections: (The following items were deleted from the chart) 14:18 13:56 02/05/2020 13:56 Discharged to Home. Impression: Irritant contact dermatitis; ss Edema, unspecified. Condition is Stable. Discharge Instructions: Contact Dermatitis, Edema, Rash, Cryotherapy. Forms are Medication Reconciliation Form, Thank You Letter, Antibiotic Education, Prescription Opioid Use. Follow up: Emergency Department; When: As needed; Reason: Worsening of condition. Follow up: Private Physician; When: 1 - 2 days; Reason: Recheck today's complaints, Continuance of care, Re-evaluation by your physician. snw
[2020-02-05 14:24] VITALS: BP 197/100; TEMP 97.3; O2SAT 100
== END 2020-02-05 14:18 | disposition home or self-care (01) ==
LOC: ER 12:58
DX: L24.9 Irritant contact dermatitis, unspecified cause (principal); R60.9 Edema, unspecified; Z99.2 Dependence on renal dialysis
CPT/HCPCS: 99284; J8540

== ENCOUNTER 2020-03-20 17:32 | Emergency (ER) | payer OTHER ==
--- OUTSIDE RECORDS SUMMARY | 2020-03-20 17:34 | XMS REPORT | Clinical Summary ---
:1965 Author Organization [facility] Address [address] [place] [address] Care Team Providers Name Role Phone Yara Lloyd MD Primary Care Provider Allergies No Known Allergies Medications Medication Sig Dispensed Refills Start Date End Date Status carvedilol (COREG) Take 12.5 mg 0 Active 12.5 MG tablet by mouth 2 (two) times a day with meals. lidocaine-prilocai Apply 0 A ctive ne (EMLA) 2.5-2.5 topically 3 % cream (three) times a week. 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 amLODIPine Take 10 mg by 0 Activ e (NORVASC) 10 mg mouth daily. tablet pantoprazole Take 40 mg by 0 Act irvin (PROTONIX) 40 MG mouth daily. EC tablet sevelamer Take 3,200 mg 0 Active (RENVELA) 800 mg by mouth 3 tablet (three) times a day with meals. venlafaxine Take 75 mg by 0 Acti ve (EFFEXOR) 75 MG mouth daily. tablet aspirin (ECOTRIN) Take 81 mg by 0 20 Discontinued 81 MG enteric mouth daily. 19 (St op Taking at coated tablet Discha rge) [id number] Take by mouth. 0 Discontinued cetaminophen 19 (Stop T aking at [id number] Disc harge) mg/30 mL liquid sevelamer Take 1,600 mg 0 20 Discon tinued (RENVELA) 800 mg by mouth 2 19 (S top Taking at tablet (two) times a Discha rge) day. WITH SNACKS acetaminophen Take 650 mg by 0 03/23/20 D iscontinued (TYLENOL) 325 MG mouth every 6 19 (Stop Taking at tablet (six) hours as Disch arge) needed for mild pain or fever. sevelamer Take 2 tablets 120 tablet 0 03/23/2019 04/22/20 Exp ired (RENVELA) 800 mg (1,600 mg 19 tablet total) by mouth 2 (two) times a day for 30 days. Active Problems Problem Noted Date Anemia 03/18/2019 Gastrointestinal hemorrhage 03/18/2019 Overview: Added automatically from request for saqib arita [id number] Encounters Date Type Specialty Care Team Description Anesthesia Gastroenterology [place], 9 Event MD Lynda Agosto Blessy, RN Surgery Gastroenterology Haley, ESOPHAGOGAS TRODUODENOSCOPY 9 Moazzam (EGD) with biop chen Herring DO [facility] General Internal GabinoYara martinez Gastrointes tinal hemorrhage, 9 - Encounter Medicine MD Prakash unspecified gas trointestinal hemorrhage type (Primary Dx) 9 after 03/20/2019 Family History Medical History Relation Name Comments [...] six or more drinks on one occasion? No t asked Sex Assigned at Date Recorded Not [...] 4.8 oz) 03/23/2019 3:25 AM CDT Height - - Body Mass Index 25.66 03/18/2019 4:19 PM CDT Plan of Treatment Health Maintenance Due Date Last Done Comments CERVICAL CANCER SCREENING 1986 BREAST CANCER SCREENING 2015 COLONOSCOPY SCREENING 2015 SHINGLES VACCINES (#1) 2015 INFLUENZA VACCINE 05/04/2020 Procedures Procedure Name Priority Date/Time Associated Diagnosis Comme nts ESTIMATED GFR Routine 03/23/2019 Results for 5:45 AM CDT this procedure are in the results section. BASIC METABOLIC PANEL Routine 03/23/2019 Result s for 5:45 AM CDT this procedure are [...] section. HEPATITIS B SURFACE AB, Routine 03/21/2019 Resu lts for QUANTITATIVE 1:15 PM CDT this procedure are in the results section. HEPATITIS B SURFACE ANTIGEN Routine 03/21/2019 Results for 1:15 PM CDT this procedure are in the results section. ESTIMATED GFR Routine 03/21/2019 Results for 12:38 PM CDT this procedure are in the results section. BASIC METABOLIC PANEL Routine 03/21/2019 Result s for 12:38 PM CDT this procedure are in the results section. CT ANGIOGRAM ABDOMEN PELVIS W Routine 03/21/2019 Results for AND OR WO CONTRAST 8:09 AM CDT this procedure are in the results section. ESTIMATED GFR Routine 03/21/2019 Results for 6:30 AM CDT this procedure are in the results section. BASIC METABOLIC PANEL Routine 03/21/2019 Result s for 6:30 AM CDT this procedure are in the results section. HC COMPLETE BLD COUNT W/AUTO Routine 03/21/2019 Results for DIFF 6:30 AM CDT this procedure are in the results section. HEMODIALYSIS Routine 03/21/2019 12:06 AM CDT SURGICAL PATHOLOGY REQUEST Routine 03/20/2019 R esults for 3:16 PM CDT this procedure are in the results section. COLONOSCOPY 03/20/2019 Gastrointestinal 11:43 AM CDT hemorrhage, unspecified gastrointestinal hemorrhage type ESOPHAGOGASTRODUODENOSCOPY 03/20/2019 Gastrointestin al (EGD) 11:43 AM CDT hemorrhage, unspecified gastrointestinal hemorrhage type ECG 12-LEAD STAT 03/20/2019 Results for 10:06 AM CDT this procedure are in the results section. ESTIMATED GFR Routine 03/20/2019 Results for 4:35 AM CDT this procedure are in the results section. BASIC METABOLIC PANEL Routine 03/20/2019 Result s for 4:35 AM CDT this procedure are in the results section. HC COMPLETE BLD COUNT W/AUTO Routine 03/20/2019 Results for DIFF 4:35 AM CDT this procedure are in the results section. after 03/20/2019 Results Estimated GFR (03/23/2019 5:45 AM CDT)Only the most recent of4 resultswithin the time period is included. Estimated GFR 4 (A) mL/min/1.73 [facility] Comment: m2 OGALLAH Catergory Units Interpretation HOS PITAL G1 >=90 Normal or high G2 60-89 Mildly decreased G3a 45-59 Mildly to moderately decreas ed G3b 30-44 Moderately to severely decre ased G4 15-29 Severely decreased G5 <15 Kidney failure The eGFR was calculated using the Chronic Kidney Disea se Epidemiology Collaboration (CKD-EPI) equation. Interpretation is based on recommendations of the National Kidney Foundation-Kidney Disease Outcomes Cholo lity Initiative (NKF-KDOQI) published in 2014. Specimen Plasma specimen Performing Organization Address City/State/Zipcode Phone Number [facility] DEPARTMENT OF PATHOLOGY [address] [facility] [place] [address] AND GENOMIC MEDICINE [facility] [address] [facility] X [id number] [place] [address] CBC with platelet and differential (03/23/2019 5:45 AM CDT)Only the most recent of4 resultswithin the time period is included. WBC 4.1 (L) 4.5 - 11.0 k/uL [facility] RBC 3.06 (L) 4.20 - 5.50 [facility] m/uL [facility] HGB 9.4 (L) 12.0 - 16.0 [facility] g/dL [facility] HCT 28.6 (L) 37.0 - 47.0 % [facility] MCV 93.5 82.0 - 100.0 fL [facility] MCH 30.7 27.0 - 34.0 pg [facility] MCHC 32.9 31.0 - 37.0 [facility] g/dL [facility] RDW - SD 46.4 37.0 - 55.0 fL [facility] MPV 10.8 6.9 - 11.0 fL [facility] Platelet count 112 (L) 150 - 400 K/uL [facility] Nucleated RBC 0.00 /100 WBC [facility] Neutrophils 59.0 39.0 - 69.0 % [facility] Lymphocytes 24.1 (L) 25.0 - 45.0 % [facility] Monocytes 10.2 (H) 0.0 - 10.0 % [facility] Eosinophils 6.3 (H) 0.0 - 5.0 % [facility] Basophils 0.2 0.0 - 1.0 % [facility] Immature granulocytes 0.2 0.0 - 1.0 % [facility] Specimen Blood Performing Organization Address City/State/Zipcode Phone Number [facility] DEPARTMENT OF PATHOLOGY [address] [facility] [place] [address] AND GENOMIC MEDICINE [facility] [address] [facility] X [id number] [place] [address] Basic metabolic panel (03/23/2019 5:45 AM CDT)Only the most recent of4 results within the time period is included. Pathologist Sig nature Sodium 133 (L) 135 - 148 mEq/L [facility] Potassium 5.2 (H) 3.5 - 5.0 mEq/L [facility] Chloride 94 (L) 98 - 112 mEq/L [facility] CO2 29 24 - 31 mEq/L [facility] Anion gap 10@ANIO 7 - 15 mEq/L [facility] BUN 38 (H) 6 - 20 mg/dL [facility] Creatinine 9.04 (H) 0.50 - 0.90 mg/dL [facility] Glucose 97 65 - 99 mg/dL [facility] Calcium 9.0 8.3 - 10.2 mg/dL [facility] Specimen Plasma specimen Performing Organization Address [facility] Phone Number [facility] DEPARTMENT OF PATHOLOGY [address] [place] [address] [address] HOSPITAL Transfuse RBC (03/22/2019 6:24 PM CDT)Only the most recent of2 resultswithin the time period is included.Prepare RBC, 2 Units (03/22/2019 9:02 AM CDT) Product name Red Blood Cells [place] [id number], Leukored [facility] Unit number [id number] [facility] Product code [id number] [facility] Dispense status Transfused [facility] Blood expiration [id number] [facility] Blood type code 5100 [facility] Blood type O POSITIVE [facility] Product name Red Blood Cells [facility], Leukored [facility] Unit number [id number] [facility] Product code [id number] [facility] Dispense status Transfused [facility] Blood expiration [id number] [facility] Blood type code 5100 [facility] Blood type O POSITIVE [facility] Specimen Blood Performing Organization Address [facility] Phone Number [facility] DEPARTMENT OF PATHOLOGY [address] [place] [address] [address] [address] HOSPITAL Type and screen (03/22/2019 9:02 AM CDT) Pathologist Sig nature ABO grouping OComment: [facility] 03/22/19 10:08 [facility] RBC available. slel Rh type POS [facility] Antibody screen NEG [facility] (gel) [facility] Specimen Blood Performing Organization Address City/State/Zipcode Phone Number [facility] DEPARTMENT OF PATHOLOGY [address] [facility] [address] [facility] [address] [facility] [place] [address] [facility] Hepatitis B surface Ab, quantitative (03/21/2019 1:15 PM CDT) Hepatitis B surface 31.55 IU/L [facility] Comment: The anti-HBs is greater than or equal to 10 IU/L. This patient has either had an antibody response to HBV vaccination, re ceived a transfusion, or has recovered from HBV infection. This patient should be considered immune to hepatitis B. An anti-HBs result greater than or equal to 10 IU/L im plies immunity. For post-vaccination antibody testing guidel king for the general public refer to MMWR September 25, 2005/Vol. 54 (No. 16);10-26, and for healthcare workers refer to MMWR Sep/Vol. 62(No. 10);10-22. Reference Interval: anti-HBs 9.99 IU/L or less ....... Negative 10.00 IU/L or greater .... Positive Results greater than 1,000.00 IU/L are reported as gre ater than 1,000.00 IU/L. This assay should not be used for blood donor screenin g, associated re-entry protocols, or for screening Human Cell, Tissues and Cellular and Tissue-Based Products (HCT/P) . Performed by [facility], [address] [place], [place] [id number] [email or web address], Kyle Ng MD - Lab. Director Specimen Serum Performing Organization Address [facility]/Zipcode Phone Number [facility] [address] [place] [address] [facility] [address] [place] [address] Hepatitis B surface antibody (03/21/2019 1:15 PM CDT) Pathologist Sig nature Hepatitis B surface Reactive (A) Non-reactive [facility] Specimen Blood Performing Organization Address City/State/Zipcode Phone Number [facility] DEPARTMENT OF PATHOLOGY AND [address] [facility], [place] [address] [facility] [address] [place] [address] Hepatitis B surface antigen (03/21/2019 1:15 PM CDT) Pathologist Sig nature Hepatitis B surface Non-reactive Non-reactive [facility] Specimen Blood Performing Organization Address City/State/Zipcode Phone Number [facility] DEPARTMENT OF PATHOLOGY [address] [facility] [address] AND GENOMIC MEDICINE [facility] [address] [facility] [place] [address] HOSPITAL CTA Abdomen Pelvis W And Or Wo Contrast (03/21/2019 8:09 AM CDT) Specimen Narrative Performed At EXAM: RADIANT CT ANGIOGRAM ABDOMEN PELVIS W AND OR WO CONTRAST INDICATION: UGI bleed nonvariceal no clear sourc e on endoscopy COMPARISON: None. TECHNIQUE: Before and after administration of iodinated contrast intravenously, axial CT images of the abdomen and pelvis were obtaine d. Coronal and sagittal maximal intensity projection images were obta ined. 3-D volumetric reconstruction of the arteria l system was obtained. Iterative reconstruction and/or automated e xposure control techniques were employed to reduce radia tion dose. FINDINGS: Limited chest: Visualized portions of the esophagus are normal. Top n ormal heart size. Visualized pericardium is normal. No noemí nopathy in visualized chest. Small, simple pleural effusions bilaterally. Mild biba silar dependent atelectasis. Abdomen: Hypodensity liver adjacent to falciform, likely focal fatty infiltration. Otherwise normal. No CT evidence of cholelithiasis. Moderate concentric thickening of the gallbladder wall which is nonspecific finding that can be seen with acalculous cholecystitis, heart failure/fluid overload , and secondary to adjacent hepatic parenchymal disease. If clinical concern for acute cholecystitis exists, consi cedrick further evaluation with HIDA scan. No intrahepatic biliary dilatation. Comm on bile duct is unremarkable. Pancreas is normal. Mild splenomegaly with spleen measuring up to 12.1 cm long. Bilateral adrenals are normal. Marked renal cortical atrophy bilaterally. 1.3 cm diam eter simple cyst left kidney upper pole (series 5, slice 46). Stomach is normal. Duodenum is normal. Remainder of sm all bowel is normal. Appendix is and not well visualized. Mild conc entric thickening of the right colon through the transverse colon wall w ith submucosal hypodensity compatible with edema. Desce nding and sigmoid colon are most likely normal. Distal sigmo id colon and rectum demonstrate moderate concentric wall thickening and submucosal hypodensity. Findings are compatible with multifocal c olitis and proctitis, infectious versus inflammator y. No evidence of gastric or enterocolonic active extravasation. Pelvis: Small amount of free fluid layering with in the pelvis. Rectum is above. Bladder is minimally distended with urine. Despite und erdistention probable moderate concentric bladder wall thickening a nd perivesicular fat stranding, which may be suggestive of cystitis. Re commend correlation with urinalysis. Status post hysterectomy. Bilateral adnexa and vaginal cuff are unremarkable. Bilateral inguinal canals and ischiorect al fossa are normal. Vascular: Descending thoracic aorta: Minimal tortuosity. Normal course and caliber. Abdominal aorta: Normal course caliber. Celiac axis: Conventional celiac arterial anatomy. Nor mal course and caliber. Superior mesenteric artery: Normal cours e and caliber. Right renal artery: Solitary. Normal cou rse and caliber. Left renal artery: Duplicated with tiny superior pole branch arising from the aorta superior to the main branch. Otherwise normal course caliber. Inferior mesenteric artery: Normal cours e and caliber. Right: Iliac arteries: Normal course and calibe r. Visualized femoral arteries: Normal cour se caliber. Left: Iliac arteries: Trace calcified atherosclerotic plaque bifurcation left common iliac artery without associated luminal narrowi ng. Otherwise normal course and caliber. Visualized femoral arteries: Normal cour se and caliber. Full evaluation. Portal venous structures limited by c ontrast bolus timing. Splenic vein, superior mesenteric vein, portal vein, a nd intrahepatic portal venous branches are normal. No abdominal, pelvic, or inguinal adenop athy. Musculoskeletal: Multilevel Schmorl's nodes. No suspicious osseous soft tissue structures. IMPRESSION: 1. No CT evidence of acute gastrointestinal hemorrhage /active extravasation. 2. Findings suggestive of multifocal colitis and proct itis, infectious versus inflammatory. 3. Findings suggestive of heart failure/fluid overload , including: Top normal heart size, Small bilateral pleural effusions w ith adjacent dependent atelectasis, small amount of a scites, 4. Possible cystitis. Recommend further evaluation with urinalysis. 5. Moderate concentric thickening of the gallbladder w all. No CT evidence of cholelithiasis. Findings are nonspecific a nd can be secondary to acalculus cholecystitis, heart failure/fl uid overload, and adjacent hepatic parenchymal disease. If indicated, consider further evaluation with gallbla dder ultrasound an/or HIDA scan. [facility]-[id number] Procedure Note [facility], Radiology Results Incoming - 03/21/2019 8:35 AM CDT EXAM: CT ANGIOGRAM ABDOMEN PELVIS W AND OR WO CONTRAST INDICATION: UGI bleed nonvariceal no clear source on endoscopy COMPARISON: None. TECHNIQUE: Before and after administration of iodin ated contrast intravenously, axial CT images of the abdomen and pelvis were obtained. Coronal and sagittal maximal intensity projection images were obtained. 3-D volumetric reconstruction of the arterial system wa s obtained. Iterative reconstruction and/ or automated exposure control techniques were employed to reduce radiation dose. FINDINGS: Limited chest: Visualized portions of the esophagus are normal. Top normal heart size. Visualized pericardium is normal. No adenopathy in visualized chest. Small, simple pleural effusions bilatera lly. Mild bibasilar dependent atelectasis. Abdomen: Hypodensity liver adjacent to falciform, likely focal fatty infiltration. Otherwise normal. No CT evidence of cholelithiasis. Modera te concentric thickening of the gallbladder wall which is nonspecific finding that can be seen with acalculous cholecystitis, heart failure/fluid overload, and secondary to adjacent hepatic parenchymal disease. If clinical concern for acute cholecystitis exists, consider further evaluation with HIDA scan. No intrahepatic biliary dilatation. Comm on bile duct is unremarkable. Pancreas is normal. Mild splenomegaly with spleen measuring up to 12.1 cm long. Bilateral adrenals are normal. Marked renal cortical atrophy bilaterall y. 1.3 cm diameter simple cyst left kidney upper pole (series 5, slice 46). Stomach is normal. Duodenum is normal. R emainder of small bowel is normal. Appendix is and not well visualized. Mild concentric thickening of the right colon through the transverse colon wall with submucosal hypodensity compatible with edema. Descending and sigmoid colon are most likely normal . Distal sigmoid colon and rectum demonstrate moderate concentric wall thickening and submucosal hypodensity. Findings are compatible with multifocal colitis and proctitis, infectious versus inflammatory. No evidence of gastric or enterocolonic active extravasation. Pelvis: Small amount of free fluid layering with in the pelvis. Rectum is above. Bladder is minimally distended with urin e. Despite underdistention probable moderate concentric bladder wall thickening and perivesicular fat stranding, which may be suggestive of cystitis. Recommend correlation with urinalysis. Status post hysterectomy. Bilateral adne xa and vaginal cuff are unremarkable. Bilateral inguinal canals and ischiorect al fossa are normal. Vascular: Descending thoracic aorta: Minimal tortu osity. Normal course and caliber. Abdominal aorta: Normal course caliber. Celiac axis: Conventional celiac arteria l anatomy. Normal course and caliber. Superior mesenteric artery: Normal cours e and caliber. Right renal artery: Solitary. Normal cou rse and caliber. Left renal artery: Duplicated with tiny superior pole branch arising from the aorta superior to the main branch. Otherwise normal course caliber. Inferior mesenteric artery: Normal cours e and caliber. Right: Iliac arteries: Normal course and calibe r. Visualized femoral arteries: Normal cour se caliber. Left: Iliac arteries: Trace calcified atherosc lerotic plaque bifurcation left common iliac artery without associated luminal narrowing. Otherwise normal course and caliber. Visualized femoral arteries: Normal cour se and caliber. Full evaluation. Portal venous structure s limited by contrast bolus timing. Splenic vein, superior mesenteric vein, portal vein, and intrahepatic portal venous branches are normal. No abdominal, pelvic, or inguinal adenop athy. Musculoskeletal: Multilevel Schmorl's nodes. No suspiciou s osseous soft tissue structures. IMPRESSION: 1. No CT evidence of acute gastrointesti nal hemorrhage/active extravasation. 2. Findings suggestive of multifocal col itis and proctitis, infectious versus inflammatory. 3. Findings suggestive of heart failure/ fluid overload, including: Top normal heart size, Small bilateral pleural effusions with adjacent dependent atelectasis, small amount of ascites, 4. Possible cystitis. Recommend further evaluation with urinalysis. 5. Moderate concentric thickening of the gallbladder wall. No CT evidence of cholelithiasis. Findings are nonspecific and can be secondary to acalculus cholecystitis, heart failure/fluid overload, and adjacent hepatic parenchymal disease. If indicate d, consider further evaluation with gallbla dder ultrasound an/or HIDA scan. [facility]-[id number] Performing Organization Address City/State/Zipcode Phone Number [facility] [address] [place] [address] Surgical pathology request (03/20/2019 3:16 PM CDT) [facility] DEPARTMENT OF PATHOLOGY AND GENOMIC MEDICINE Surgical pathology See link below [facility] DEPARTMENT OF report for PDF Lab PATHOLOGY AND Report GENOMIC MEDICINE Result status This is Final [facility] DEPARTMENT OF Report for PATHOLOGY AND [id number] GENOMIC MEDICINE Specimen Performing Organization Address City/State/Zipcode Phone Number [facility] DEPARTMENT OF PATHOLOGY [address] [facility] [address] [place], [place] [address] AND GENOMIC MEDICINE ECG 12 lead (03/20/2019 10:06 AM CDT) Pathologist Sig nature Ventricular rate 75 [facility] Atrial rate [address] interval 180 [facility] QRSD interval 84 [facility] QT interval 394 [facility] QTC interval 439 [facility] P axis 1 49 [facility] QRS axis 1 22 [facility] T wave axis 41 [facility] EKG impression Normal sinus [facility] rhythm-Normal ECG-No previous ECGs available-Electronicall y Signed By Kaya PARK, Jaydeocdales ([id number]) on 03/21/2019 7:18:46 AM Specimen Narrative Performed At This result has an attachment that is no t available. 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
--- OUTSIDE RECORDS SUMMARY | 2020-03-20 17:34 | XMS REPORT | Clinical Summary ---
:1965 Author Organization [facility] Address [address] [place] [address] Care Team Providers Name Role Phone Pcp Primary Care Provider Unavailable Allergies No Known Allergies Medications Medication Sig Dispensed Refills Start Date End Date Status carvedilol (COREG) Take 12.5 mg by 0 Active 6.25 MG tablet mouth 2 (two) times daily with breakfast and dinner . lidocaine-prilocain Apply topically 0 Active e (EMLA) 2.5-2.5 % as needed (on cream dialysis days, apply to access arm before tx). pantoprazole Take 40 mg by 0 Act irvin (PROTONIX) 40 MG mouth daily. tablet sevelamer (RENVELA) Take 800 mg by 0 Active 800 mg tablet mouth 3 (three) times daily with meals 5 tablets with meals and 2 tablets with snacks. FOLIC ACID/VITAMIN Take by mouth 0 Active B COMP W-C daily. (CHRISTOPHER-ARNOLDO ORAL) venlafaxine Take 75 mg by 0 Acti ve (EFFEXOR) 75 MG mouth daily. tablet FA-vit Take by mouth. 0 Activ e Bcomp&K-sckiprzm-fi nc (FOLIC ACID-VITAMIN B COMPLEX-VITAMIN [id number]) 3-70-15 mg-mcg-mg Tab amLODIPine Take 10 mg by 0 Activ e (NORVASC) 10 MG mouth daily. tablet folic acid/vit B Take by mouth. 0 Active complex and C (CHRISTOPHER-ARNOLDO ORAL) acetaminophen Take 650 mg by 0 A ctive (TYLENOL) 325 MG mouth as needed tablet for Pain. amLODIPine Take 10 mg by 0 Disco ntinued (NORVASC) 10 MG mouth On 0 tablet non-dialysis days only. aspirin 81 MG EC Take 81 mg by 0 Discontinued tablet mouth daily. 0 calcium Take 1 tablet 0 Discon tinued carbonate-vitamin by mouth 3 0 D3 (CALCIUM-VITAMIN (three) times D) 500 mg(1,250mg) daily with -200 unit per meals. tablet calcium carbonate Take 1 tablet 0 12/20/19 2 Discontinued (CALCIUM CARBONATE) by mouth 3 0 300 mg Chew (three) times daily . Active Problems Patient Care Coordination Note PCP- Maynor Aragon [place] No additional problems on file Encounters Date Type Specialty Care Team Description 02/22/2020 Hospital Encounter Cardiology Ariel Moura ESRD ( end stage renal disease) on dialysis (HCC); MD Nasim Pre-transplant evaluation for chronic kidney disease 01/11/2020 Documentation Transplant Ricardo Arce 12/21/2019 Telephone Transplant ArceRicardo nunez Appointment 12/20/2019 Evaluation Transplant Elisabeth Smith Awaiting transplantation MD Julia of kidney (Primary Dx) Ariel Moura MD 12/20/2019 Documentation Transplant Phyllis Adame RN 12/20/2019 Orders Only Transplant Leatha Saunders RN ESRD (end s tage renal disease) on dialysis (HCC) (Primary Dx); Pre-transplant evaluation for chronic kidney disease 12/19/2019 Telephone Transplant Ricardo Arce Appointment 11/28/2019 Telephone Transplant Ricardo Arce Appointment 11/27/2019 Orders Only Transplant Brianna Tafoya MD 11/15/2019 Documentation Transplant Phyllis Adame RN 10/18/2019 Orders Only Transplant Phyllis Adame RN Awaiting tr ansplantation of kidney (Prim kim Dx) after 03/20/2019 Family History Medical History Relation [...] Vital Sign Reading Time Taken Blood Pressure 154/82 12/20/2019 1:37 PM CDT Pulse 73 12/20/2019 1:37 PM CDT Temperature 36.7 C (98.1 F) 12/20/2019 1:37 PM CDT Respiratory Rate 16 12/20/2019 1:37 PM CDT Oxygen Saturation - - Inhaled Oxygen Concentration - - Weight 59 kg (130 lb 1.6 oz) 12/20/2019 1:37 P M CDT Height 157.5 cm (5' 2") 12/20/2019 1:37 PM CDT Body Mass Index 23.8 12/20/2019 1:37 PM CDT Plan of Treatment Health Maintenance Due Date Last Done Comments COLON CANCER SCREENING COLONOSCOPY 1965 PNEUMOCOCCAL VACCINE 2-64 YEARS AT RISK (1 1971 of 3 - PCV13) CERVICAL CANCER SCREENING PAP ONLY (Age 0502/11/1986 21-65) MEDICARE ANNUAL WELLNESS (YEAR 2 or FIRST 10/05/2019 YEAR if no IPPE) BREAST CANCER SCREENING 03/23/2020 03/23/2018, 11/27/2015 INFLUENZA VACCINE (Season Ended) 2020 Procedures Procedure Name Priority Date/Time Associated Diagnosis Comme nts 2D ECHO W/ DOPPLER Routine 02/22/2020 8:47 ESRD (end stage re nal Results for this (CW/PW/COLOR) AM CDT disease) on dialysis proced ure are in (HCC) the results Pre-transplant section. evaluation for chronic kidney disease ECHOCARDIOGRAM REPORT 01/01/2020 8:50 - SCAN AM CDT FLOW PRA CLASS II WITH Routine 04/14/2019 11:39 Awaiting R esults for this REFLEX TO ANTIBODY AM CDT transplantation of pro cedure are in SPECIFICITY kidney the results section. FLOW PRA CLASS I WITH Routine 04/14/2019 11:39 Awaiting Re sults for this REFLEX TO ANTIBODY AM CDT transplantation of pro cedure are in SPECIFICITY kidney the results section. CT ANGIOGRAM ABDOMEN Routine 03/20/2019 PELVIS W WO CONTRAST after 03/20/2019 Results 2D Echo W/Doppler(CW/PW/Color) (02/22/2020 8:47 AM CDT) Ejection Fraction [facility] ECHO HEAR TLAB MKCKESSON CPACS Specimen Narrative Performed At Transthoracic Echocardiography Report (T TE) [facility] ECHO HEART[facility] Demographics Patient Name BLAISE, PIA Date of Study02/22/2020 CORAL [id number] Gender Female Visit Number [id number] Unknown [id number] Room Numberop Number Date of Birth1965Referring Martell Tavares Physician Age55 year(s)Site Director Raji Cuellar [facility] Interpreting Man Nova MD Physician Fellow Quinton whitman MD Procedure Type of Study TTE procedure:2DECHO W DOPPLER(CW/PW/COLOR) (Routine) Indications:Renal transplant evaluation . Clinical History HTN, ESRD Height: 62 inches Weight: 56.25 kg (124 lbs) BSA: 1.56 m^2 BMI: 22.68 kg/m^2 HR: 72 bpm BP: 177/91 mmHg Summary 1. Normal left ventricular chamber size. Normal wall thickness. No apparent segmental wall motion abnormalities. Normal overall left ventricular systolic function (>60% by Franklin's biplane method of disks). Normal diastolic function. E/e' 11. LA size is moderately enlarged (42-48 ml/m2) . 2. The right ventricular chamber size and systolic function are within normal limits. RA size is normal. Estimated peak systolic PA pressure is 40-45 mmHg (mild pulmonary hypertension ) . 3. Mild tricuspid regurgitation. Signature Findings Left Ventricle Normal left ventricular chamber size. Normal wall th ickness. Normal overall left ventricular systolic fu nction (>60% by Franklin's biplane method of di sks). No apparent segmental wall motion ab normalities. Normal diastolic function. E/e' 11 .54. Left AtriumLA size is moderately enlarged (42-48 ml/m2) . Right VentricleThe right ventricular chamber size and systolic fu nction are within normal limits. Right Atrium RA size is normal. Atrial SeptumNormal interatrial septum by available views. Aortic Valve Normal AoV structure and function. Mitral Valve Mild MV leaflet thickening. Trace MR. Tricuspid ValveMild tricuspid regurgitation. Es timated peak systolic PA pressure is 40- 45 mmHg (m ild pulmonary hypertension) . Pulmonic Valve Normal PV structure appears normal by available vi ews. Mild PI. AortaAortic root size (SInus of Valsalva diameter) i s no rmal . PericardiumNo significant pericardial effusion is visualized. IVC/SVC/PA/PV/PleuralThe estimated RA pressure by IVC dynamics 5-10mmHg . Chambers/Structures Left Atrium LA Volume: 67.25 ml LA Area: 22.09 cm^2 LA Vol. Index: 43 ml/m^2 Left Ventricle LVIDd: 4.1 cm LV Septum Diastolic: 0.92 cm LV PW Diastolic: 1.26 cm LVEDV Franklin's:89.89 ml LVESV Franklin's:32.18 ml LVEF Franklin's: 64.2 %LVEDV I: 58 ml/m^2 LVESVI: 21 ml/m^2 LVOT Diameter: 1.93 cm Doppler/Quantitative Measurements Mitral Valve MV Peak E-Wave: 1.04 m/s MV Peak A-Wave: 0.85 m/s E/A Ra ulisses: 1.22 Peak Gradient: 4.33 mmHg MV Negro. Peak: Tissue Doppler E' Septal Velocity: 0.05 m/s E/E': 11.54 E' Lateral Velocity: 0.09 m/s Aortic Valve Peak Velocity: 1.93 m/sMean Velocity: 1.22 m/s Peak Gradient: 14.94 mmHgMean Gradient: 6.96 mmHg AV Area (continuity): 2.44 cm^2 AV VTI: 36.22 cm AV DVI: 0.83 LVOT Peak Velocity: 1.64 m/sPeak Gradient: 10.81 mmHg Mean Velocity: 0.94 m/sMean Gradient: 4.32 mmHg LVOT Diameter: 1.93 cm LVOT VTI: 30.19 cm LVOT Area: 2.93 cm^2 LVOT SV:88.28 ml LVOT CO: 6.36 l/minLVOT CI: 4.08 l/min/m^2 Tricuspid Valve TR Velocity: 3.07 m/s TR Gradient: 37.75 mmHg Procedure Note Interface, External Ris In - 02/22/2020 10:28 AM CDT Transthoracic Echocardiography Report (TTE) Demographics Patient Name WELSH, PIA Date of Study 02/22/2020 CORAL Gend er Female Visit Number [id number] Race Unknown Room Number op Number Date of 1965 Refe robin Martell soliz Age 55 year(s) Sono mary Cuellar [facility] Inte rpreting Man Nova MD Phys heydi Fellow Quinton Gordillo MD Procedure Type of Study TTE procedure:2DECHO W DOPPLE R(CW/PW/COLOR) (Routine) Indications:Renal transplant evaluation . Clinical History HTN, ESRD Height: 62 inches Weight: 56.25 kg (124 lbs) BSA: 1.56 m^2 BMI: 22.68 kg/m^2 HR: 72 bpm BP: 177/91 mmHg Summary 1. Normal left ventricular chamber size . Normal wall thickness. No apparent segmental wall motion abnormal ities. Normal overall left ventricular systolic function (>60% by Franklin's biplane method of disks). Normal diastolic function. E/e' 11. LA size is moderately enlarged (42-48 ml/m2) . 2. The right ventricular chamber size a nd systolic function are within normal limits. RA size is normal. Estim ated peak systolic PA pressure is 40-45 mmHg (mild pulmonary hypertension ) . 3. Mild tricuspid regurgitation. Signature Findings Left Ventricle Normal left vent ricular chamber size. Normal wall thickness. Tracy l overall left ventricular systolic function (>60% b y Franklin's biplane method of disks). No appar ent segmental wall motion abnormalities. N ormal diastolic function. E/e' 11.54. Left Atrium LA size is moder ately enlarged (42-48 ml/m2) . Right Ventricle The right ventri cular chamber size and systolic function are wit hin normal limits. Right Atrium RA size is tracy l. Atrial Septum Normal interatri al septum by available views. Aortic Valve Normal AoV struc ture and function. Mitral Valve Mild MV leaflet thickening. Trace MR. Tricuspid Valve Mild tricuspid r egurgitation. Estimated peak s ystolic PA pressure is 40-45 mmHg (mild pulmonary hypertension) . Pulmonic Valve Normal PV struct ure appears normal by available views. Mild PI. Aorta Aortic root size (SInus of Valsalva diameter) is normal . Pericardium No significant p ericardial effusion is visualized. IVC/SVC/PA/PV/Pleural The estimated RA pressure by IVC dynamics 5-10mmHg . Chambers/Structures Left Atrium LA Volume: 67.25 ml LA Area: 22.09 cm^2 LA Vol. Index: 43 ml/m^2 Left Ventricle LVIDd: 4.1 cm LV Septum Diastolic: 0.92 cm LV PW Diastolic: 1.26 cm LVEDV Franklin's:89.89 ml LVESV Franklin's:32.18 ml LVEF Franklin's: 64.2 % LVEDVI: 58 ml/m^2 LVESVI: 21 ml/m^2 LVOT Diameter: 1.93 cm Doppler/Quantitative Measurements Mitral Valve MV Peak E-Wave: 1.04 m/s MV Peak A-Wave: 0.85 m/s E/A Ratio: 1.22 Peak Gradient: 4.33 mmHg MV Negro. Peak: Tissue Doppler E' Septal Velocity: 0.05 m/s E/E': 11.54 E' Lateral Velocity: 0.09 m/s Aortic Valve Peak Velocity: 1.93 m/s Mean Velocity: 1.22 m/s Peak Gradient: 14.94 mmHg Mean Gradient: 6.96 mmHg AV Area (continuity): 2.44 cm^2 AV VTI: 36.22 cm AV DVI: 0.83 LVOT Peak Velocity: 1.64 m/s Peak Gradient: 10.81 mmHg Mean Velocity: 0.94 m/s Mean Gradient: 4.32 mmHg LVOT Diameter: 1.93 cm LVOT VTI: 30.19 cm LVOT Area: 2.93 cm^2 LVOT SV:88.28 ml LVOT CO: 6.36 l/min LVOT CI: 4.08 l/min/m^2 Tricuspid Valve TR Velocity: 3.07 m/s TR Gradient: 37.75 mmHg Performing Organization Address City/[facility] Phone Number [facility] ECHO HEARTLAB MKCKESSKIN [facility] ECHOCARDIOGRAM REPORT - SCAN (01/01/2020 8:50 AM CDT) Narrative Performed At This result has an attachment that is no t available. FLOW PRA CLASS II WITH REFLEX TO ANTIBODY SPECIFICITY (04/14/2019 11:39 AM CDT) Flow Class II Percent Positive 0 B [facility] Flow Class Report Comments [facility] R [facility] TEST[facility] Specimen Blood Narrative Performed At Disclaimer: [facility] This test was developed and its performance characteri stics determined by the [facility]. It has not been mitra red or approved by the U.S. Food and Drug Administration. The FDA has determined that such clearance or approval is not nece ssary. This test is used for clinical purposes. It should not be r egarded as investigational or for research. This laboratory is ce rtified under the Clinical Laboratory Improvement Amendments o f 1988 (CLIA-88) as qualified to perform high complexity clin [facility] testing. Performing Organization Address City/[facility] Phone Number [facility] ONE [facility] [place], [place]: [place] [address] [id number], CLIA#[id number] CAP#[id number] UNOS#[id number] FLOW PRA CLASS I WITH REFLEX TO ANTIBODY SPECIFICITY (04/14/2019 11:39 AM CDT) Flow Class I Percent Positive 0 [facility] Flow Class Report Comments [facility] R [facility] TEST[facility] Specimen Blood Narrative Performed At Disclaimer: [facility] This test was developed and its performance characteri stics determined by the [facility]. It has not been mitra red or approved by the U.S. Food and Drug Administration. The FDA has determined that such clearance or approval is not nece ssary. This test is used for clinical purposes. It should not be r egarded as investigational or for research. This laboratory is ce rtified under the Clinical Laboratory Improvement Amendments o f 1988 (CLIA-88) as qualified to perform high complexity clin ical laboratory testing. Performing Organization Address City/State/Zipcode Phone Number [facility] ONE [facility] [place], [place]: [place] [address] [id number], CLIA#[id number] CAP#[id number] UNOS#[id number] CT angiogram abdomen pelvis with and without contrast (03/20/2019) Narrative Performed At This result has an attachment that is no t available. after 03/20/2019 Insurance Payer Benefit Plan / Group Subscriber ID Type Phone A ddress HUMANA - MEDICARE MGD HUMANA MEDICARE ADV xxxxxxxxx Maps Contracted CARE
--- OUTSIDE RECORDS SUMMARY | 2020-03-20 17:35 | XMS REPORT | Summary of Care ---
:1965 Author Organization [facility] - Health Address [address] [place] [address] Care Team Providers Name Role Phone Unavailable Primary Care Provider Unavailable Encounter Details Date Type Department Care Team Description 01/25/2020 Hospital Encounter [facility] Tissue Antigen Lab Quiana, Chin Modi MD [address] [place] [id number] [place], [place] [id number] Allergies No Known Allergiesdocumented as of this encounter (statuses as of 02/13/2020) Medications Medication Sig Dispensed Refills Start Date [...] as of this encounter (statuses as of 02/13/2020) Active Problems Problem Noted Date Essential hypertension 08/12/2016 Chest pain 08/22/2014 CKD (chronic kidney disease) stage 5, GFR less than 15 ml/min 08/22/2014 Anemia 08/22/2014 Lower GI bleed 08/22/2014 CKD (chronic kidney disease) stage V requiring chronic dialysis 08/22/2014 ARELY (acute kidney injury) 08/21/2014 HTN (hypertension) documented as of this encounter (statuses as of 02/13/2020) Social History Tobacco Use Types Packs/Day Years [...] filedocumented in this encounter Plan of Treatment Health Maintenance Due Date Last Done Comments DTaP,Tdap,and Td Vaccines (1 02/12/1976 - Tdap) PAP SMEAR 1986 Breast Cancer Screening 2005 (MAMMOGRAM) Zoster Recombinant Vaccine 2015 (SHINGRIX) (1 of 2) INFLUENZA VACCINE (Season 06/04/2020 Ended) COLONOSCOPY 11/28/2024 11/28/2014 HEPATITIS C (HCV) SCREEN Completed 06/23/2017, 08/22/2014 PNEUMOCOCCAL 0-64 YEARS Aged Out No longe r eligible based COMBINED SERIES on patient's age to complete this to pic documented as of this encounter Results Not on filedocumented in this encounter Insurance Payer Benefit Plan / Subscriber ID Effective Dates Phone Addre ss Type Group HUMANA - HUMANA [id number] 2018-[facility] Adv MANAGED MEDICARE ERS t PPO MEDICARE documented as of this encounter
--- OUTSIDE RECORDS SUMMARY | 2020-03-20 17:35 | XMS REPORT | Continuity of Care Document ---
:1965 Author Organization [facility] t Address [address] [place] [address] Care Team Providers Name Role Phone Pcp Primary Care Physician Unavailable Quiana PARK Attending Clinician Nasim Moura MD Attending Clinician Jenni Jimenez MD Attending Clinician Claude Attending Clinician Unavailable Julia Smith MD Attending Clinician Deep RN Attending Clinician Unavailable Chip RN Attending Clinician Unavailable Provider Attending Clinician Prakash Lloyd MD Attending Clinician Rafael Wall MD Attending Clinician Lynda RN Attending Clinician Unavailable Nima De Leon DO Attending Clinician Salvatore JEFFERY Attending Clinician Unavailable Payers Payer Name Policy Type Policy Number Effective Expiration Source Date Date HUMANA - MEDICARE MGD xxxxxxxxx [facility]IC[facility] 2018 [place] MEDICARE PPO/PFFS/ERS 00:00:00 Met dejuan [id number]- PresentPPO Problems Condition Condition Condition Status Onset Resolution Last Treating Co mments Source Name Details Category Date Date Treatment Clinician Date Anemia Anemia Disease Active Circle 615 Methodi 00:00: st 00 Gastrointe Gastrointe Disease Active Overview : Circle stinal stinal 03-18 Added Methodi hemorrhage hemorrhage 00:00: automatic st 00 ally from request for surgery [id number] No No Disease [facility] additional additional Jeanette kes - problems problems Medica l on file on file Center Allergies, Adverse Reactions, Alerts This patient has no known allergies or adverse reactions. Family History Family Member Diagnosis Comments Start Date Stop Date Source Natural brother Diabetes [facility] Natural brother Diabetes [facility] ethodist Natural mother Stomach cancer [facility] Natural mother Cancer [facility] Natural sister Lupus [facility] Natural sister Lupus [facility] Social History Social Habit Start Date Stop Date Quantity Comments Source History [facility] Meth odist Alcohol Std Drinks History [facility] Meth odist Alcohol Binge Sex Assigned At [facility] ethodist Alcohol intake 2019-03-21 2019-03-[address] [facility] 00:00:00 00:00:00 non-drinker (finding) History [facility] 2019-03-18 2019-03-18 1 [address] Meth odist Alcohol Frequency 00:00:00 00:00:00 Smoking Status Start Date Stop Date Source Never smoker Circle Methodis t Medications Ordered Filled Start Stop Current Ordering Indication Dosage Frequency Signature Comments Components Source Medication Medication Date Date Medication? Clinician (SIG) Name Name acetaminoph Yes 650mg Take [address] en 3-18 mg by [facility] - (TYLENOL) 13:55: mouth as Medi bran 325 MG 00 needed for Center tablet Pain. aspirin 81 2020- No 81mg QD Take [address] MG EC 12-19 by mouth [facility] - tablet 13:54: 00:00 daily. Medical 51 :00 Center calcium 2019- 2020- No 1{tbl} Q.17112433 Take [address] [facility] [address] carbonate 12-19 [id number] tablet by [facility] - (CALCIUM 13:54: 00:00 3D mouth 3 Medic al CARBONATE) 40 :00 (three) Center 300 mg Chew times daily . calcium 2019- 2020- No 1{tbl} Take 1 [facility] carbonate-v 12-1918 tablet by Jeanette guevaras - itamin D3 13:54: 00:00 mouth 3 Medi bran (CALCIUM- 32 :00 (three) Cente r TAMIN D) times 500 daily with mg(1,250mg) meals. -200 unit per tablet carvedilol Yes 12.5mg Take 12.[address] (COREG) 3-18 mg by [facility] - 6.25 MG 13:53: mouth 2 Medical tablet 43 (two) Center times daily with breakfast and dinner . sevelamer Yes 800mg Take [address] (RENVELA) 3-18 mg by [facility] - 800 mg 13:53: mouth 3 Medical tablet 43 (three) Center times daily with meals 5 tablets with meals and 2 tablets with snacks. amLODIPine 2019- No 10mg Take [address] [facility] (NORVASC) 12-1918 by mouth [facility] - 10 MG 13:53: 00:00 On Medical tablet 43 :00 non-dialys Center is days only. FA-vit Yes Take by [facility] Bcomp&C-trino -18 mouth. [facility] - enium-zinc 13:53: Medical (FOLIC 42 Center ACID-VITAMI N B COMPLEX-VIT NOLAN C-SELENIUM- ZINC) 3-70-15 mg-mcg-mg Tab amLODIPine Yes 10mg QD Take [address] (NORVASC) -18 by mouth [facility] - 10 MG 13:53: daily. Medical tablet 42 Center folic Yes Take by [facility] acid/vit B 3-18 mouth. [facility] - complex and 13:53: Medica l C 42 Center (CHRISTOPHER-ARNOLDO ORAL) aspirin 2018- No 81mg QD Take 81 mg [place] [facility]on (ECOTRIN) 03-2320 by mouth Metho di 81 MG 15:22: 00:[address] enteric 53 :00 coated tablet doxylamin-P 2018- No Take by Bartolome rowley SE-DM-aceta 03-2320 mouth. Metho di minophen 15:22: 00:00 st 12.5-60-30- 53 :00 1000 mg/30 mL liquid sevelamer 2018- No 1600mg Q.5D Take 1,600 [facility] (RENVELA) 6-20 06-20 mg by Methodi 800 mg 15:22: 00:[address] tablet 53 :00 (two) times a day. WITH SNACKS acetaminoph 2019- No 650mg Q6H Take 650 [facility] en 6-20 06-20 mg by Methodi (TYLENOL) 15:22: 00:[address] 325 MG 53 :00 every 6 tablet (six) hours as needed for mild pain or fever. carvedilol 2018- Yes 12.5mg Q.5D Take 12.5 [facility] (COREG) 6-20 mg by Methodi 12.5 MG 15:22: mouth 2 st tablet 49 (two) times a day with meals. lidocaine-p 2018- Yes Q.48012653 Apply Calvin rilocaine 6-20 [id number] topically Methodi (EMLA) 15:22: 3W 3 (three) st 2.5-2.5 % 49 times a cream week. 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 amLODIPine Yes 10mg QD Take 10 mg [place] (NORVASC) 6-20 by mouth Method i 10 mg 15:22: daily. st tablet 49 pantoprazol Yes 40mg QD Take 40 mg Calvin e 6-20 by mouth Methodi (PROTONIX) 15:22: daily. st 40 MG EC 49 tablet sevelamer Yes 3200mg Q.95199663 Take 3,200 [facility] (RENVELA) 6-20 [id number] mg by Met hodi 800 mg 15:22: 3D mouth 3 st tablet 49 (three) times a day with meals. venlafaxine Yes 75mg QD Take 75 mg Calvin (EFFEXOR) 6-20 by mouth Method i 75 MG 15:22: daily. st tablet 49 sevelamer 2019- No 1600mg Q.5D Take 2 [place] [facility] (RENVELA) 6-20 07-20 tablets Method i 800 mg 00:00: 23:59 (1,[address] tablet 00 :00 total) by mouth 2 (two) times a day for 30 days. venlafaxine Yes 75mg QD Take [address] (EFFEXOR) 7-05 by mouth [facility] - 75 MG 13:02: daily. Medical tablet 36 Center FOLIC 2014-10 Yes QD Take by [facility] St ACID/VITAMI 10-12 mouth [facility] - N B COMP 10:04: daily. Medical W-C 19 Center (CHRISTOPHER-ARNOLDO ORAL) lidocaine-p 2014-10 Yes Apply [facility] S t rilocaine 10-05 topically [facility] - (EMLA) 12:22: as needed Medica l 2.5-2.5 % 40 (on Center cream dialysis days, apply to access arm before tx). pantoprazol 2014-10 Yes 40mg QD Take [address] [facility] e 10-05 by mouth [facility] - (PROTONIX) 12:22: daily. Medic al 40 MG 40 [place] tablet Vital Signs Vital Name Observation Time Observation Value Comments Source Systolic blood 2019-12-20 13:37:00 154 mm[Hg] [facility] Diastolic blood 2019-12-20 13:37:00 82 mm[Hg] [facility] S [facility] Heart rate 2019-12-20 13:37:00 73 /min [facility] Body temperature 2019-12-20 13:37:00 36.72 Angela [facility] Respiratory rate 2019-12-20 13:37:00 16 /min [facility] Body height 2019-12-20 13:37:00 157.5 cm [facility] Body weight Measured 2019-12-20 13:37:00 59.013 kg [facility] BMI 2019-12-20 13:37:00 23.80 kg/m2 [facility] Systolic blood 2019-03-23 11:25:00 143 mm[Hg] [facility] pressure Diastolic blood 2019-03-23 11:25:00 91 mm[Hg] Osvaldot on [facility] pressure Heart rate 2019-03-23 11:25:00 68 /min [facility] Body temperature 2019-03-23 11:25:00 36.5 Angela [facility]do [facility] Respiratory rate 2019-03-23 11:25:00 12 /min [facility] Body weight 2019-03-23 03:25:25 63.64 kg [facility] BMI 2019-03-23 03:25:25 25.66 kg/m2 [facility] Oxygen saturation in 2019-03-23 03:25:25 96 /min Circle [facility] Arterial blood by Pulse oximetry Procedures Procedure Date / Time Performing Source Performed Clinician 2D ECHO W/ DOPPLER (CW/PW/COLOR) 2020-02-[address] [facility] - 08:47:20 [facility] ECHOCARDIOGRAM REPORT - SCAN 2020-01-01 Provider, Default [facility] - 08:50:09 [facility] FLOW PRA CLASS I WITH REFLEX TO 2019-04-14 O'Siria, [facility] - ANTIBODY SPECIFICITY 11:39:00 [facility] FLOW PRA CLASS II WITH REFLEX TO 2019-04-14 O'Siria, [facility] - ANTIBODY SPECIFICITY 11:39:00 [facility] COMPLETE BLD COUNT W/AUTO DIFF 2019-03-23 [facility] 05:45:00 [facility]isha [facility] BASIC METABOLIC PANEL 2019-03-23 [facility] 05:45:00 Jisha [facility] ESTIMATED GFR 2019-03-23 [facility] 05:45:00 Jisha [facility] HEMODIALYSIS 2019-03-[address] 00:06:22 [facility] TRANSFUSE RED BLOOD CELLS [facility] 14[facility]04[facility]57 Jisha [facility] TYPE AND SCREEN 2019-03-22 [facility] 09:02:00 Jisha [facility] PREPARE RBC 2019-03-22 [facility] 09:02:00 J[facility] HC COMPLETE BLD COUNT W/AUTO DIFF 2019-03-22 [facility] 04:30:00 Jisha [facility] HEPATITIS B SURFACE ANTIGEN 2019-03-21 Chuck Salazaru ston 13:15:00 [facility] HEPATITIS B SURFACE ANTIBODY 2019-03-21 Chuck Salazar [place] 13:15:00 [facility] BASIC METABOLIC PANEL 2019-03-21 [facility] 12:38:00 Jisha [facility] ESTIMATED GFR 2019-03-21 [facility] 12:38:[address] ANGIOGRAM ABDOMEN PELVIS W AND 2019-03-21 Ayan De Leon OR WO CONTRAST 08:09:04 Mohammad [facility] HC COMPLETE BLD COUNT W/AUTO DIFF 2019-03-21 Ayan [address] 06:30:00 Mohammad [facility] BASIC METABOLIC PANEL 2019-03-21 Ayan De Leon Circle 06:30:00 Mohammad [facility] ESTIMATED GFR 2019-03-21 Ayan [address] Leon [address] 06:30:00 Mohammad [facility] HEMODIALYSIS 2019-03-[address] 00:06:23 [facility] SURGICAL PATHOLOGY REQUEST 2019-03-20 Yara Lloyd ston 15:16:00 [facility] ESOPHAGOGASTRODUODENOSCOPY (EGD) 2019-03-20 Ayan [address] 11:43:00 Mohammad [facility] COLONOSCOPY 2019-03-20 Ayan De Leon Circle 11:43:00 Mohammad [facility] ECG 12-LEAD 2019-03-[address] 10:06:47 Oluw[facility]ayode [facility] HC COMPLETE BLD COUNT W/AUTO DIFF 2019-03-20 Ayan De Leon Circle 04:35:00 Mohammad [facility] BASIC METABOLIC PANEL 2019-03-20 Ayan De Leon Circle 04:35:00 Mohammad [facility] ESTIMATED GFR 2019-03-20 [address] 04:35:[address] ANGIOGRAM ABDOMEN PELVIS W WO 2019-03-20 Provider, MARCO Edwardkes - CONTRAST 00:00:00 [facility] Plan of Care Planned Activity Planned Date Details Comments Source Future Scheduled 2020-06-[address] [facility] - Test 00:00:00 (Season Ended) [code = [facility] INFLUENZA VACCINE (Season Ended)] Future Scheduled 2020-05-04 INFLUENZA VACCINE [place] [facility] Test 00:00:00 [code = INFLUENZA VACCINE] Future Scheduled 2020-03-[address] [facility] - Test 00:00:00 SCREENING [code = Medical Ce nter BREAST CANCER SCREENING] Future Scheduled 2019-10-[address] [facility] - Test 00:00:00 WELLNESS (YEAR 2 or Medical Center FIRST YEAR if no IPPE) [code = MEDICARE ANNUAL WELLNESS (YEAR 2 or FIRST YEAR if no IPPE)] Future Scheduled 2015 BREAST CANCER [facility] Test 00:00:00 SCREENING [code = BREAST CANCER SCREENING] Future Scheduled 2015 COLONOSCOPY SCREENING Ho halley [facility] Test 00:00:00 [code = COLONOSCOPY SCREENING] Future Scheduled 2015 SHINGLES VACCINES (#1) H hubert [facility] Test 00:00:00 [code = SHINGLES VACCINES (#1)] Future Scheduled 1986 Screening for [facility] St Amanda es - Test 00:00:00 malignant neoplasm of Medica l Center cervix (procedure) [code = 434809269] Future Scheduled 1986 Screening for [facility] thodist Test 00:00:00 malignant neoplasm of cervix (procedure) [code = 174069984] Future Scheduled [address] [facility] - Test 00:00:00 2-64 YEARS AT RISK (1 Medica l Center of 3 - PCV13) [code = PNEUMOCOCCAL VACCINE 2-64 YEARS AT RISK (1 of 3 - PCV13)] Future Scheduled 1965 COLON CANCER SCREENING [facility] Test 00:00:00 COLONOSCOPY [code = Medical Center COLON CANCER SCREENING COLONOSCOPY] Encounters Start End Encounter Admission Attending Care Care Encounter Source Date/Time Date/Time Type Type Clinicians Facility Department ID 2020-03-06 2020[facility]03-[id number] 14:04:00 23:59:00 Encounter Ly HDZ [id number] [facility] [id number] 2020-01-25 2020-01-25 [facility] [id number] 13:34:00 23:59:00 Encounter Ly HDZ [id number] [facility] [id number] 2020-01-17 2020-01-17 Abstract ROBIN Jimenez [id number] 00:00:00 00:00:00 Jimmie Arteaga MULTISPEC [id number] IAY [id number] RULE [id number] AND [facility] Results Test Description Test Time Test Comments Results Result Sourc e Comments 2D Echo 2020-02-03 Ejection FractionSLEH MARCO Gordon W/Doppler(CW/PW/C 1 ECHO [facility]ART[facility] - [place] vaughn maldonado) 10:28:04 [facility] CPACSInterface, External Ris In - 02/22/2020 10:28 AM CDTTransthoracic Echocardiography Report (TTE) Demographics Patient Name WELSH, PIA Date of Study 02/22/2020 CORAL Gender Female Visit Number [id number] Race Unknown Room Number op Number Date of 1965 Referring Martell Tavares Physician 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 [...] is 40-45 mmHg (mild pulmonary hypertension) . 3. Mild tricuspid regurgitation. Signature - - Findings Left Ventricle Normal left ventricular chamber size. Normal wall thickness. Normal overall left ventricular systolic function (>60% by Franklin's biplane method of disks). No apparent segmental wall motion abnormalities. Normal diastolic function. E/e' 11.54. Left Atrium LA size is moderately enlarged (42-48 ml/m2) . Right Ventricle The right ventricular chamber size and systolic function are within normal limits. Right Atrium RA size is normal. Atrial Septum Normal interatrial septum by available views. Aortic Valve Normal AoV structure and function. Mitral Valve Mild MV leaflet thickening. Trace MR. Tricuspid Valve Mild tricuspid regurgitation. Estimated peak systolic PA pressure is 40-45 mmHg (mild pulmonary hypertension) . Pulmonic Valve Normal PV structure appears normal by available views. Mild PI. Aorta Aortic root size (SInus of Valsalva diameter) is normal . Pericardium No significant pericardial effusion is visualized. IVC/SVC/PA/PV/Pleural The estimated RA [...] Velocity: 3.07 m/s TR Gradient: 37.75 mmHg Hepatitis B surface Ab, quantitative 2019-03-23 21:57:58 Test Item Value Reference Range Interpretation Comme nts Hepatitis B surface Ab (test 31.55 IU/L The anti-HBs is greater than or equal to code = 5193-8) 10 IU/L. This patient has either had an antibody respon se to HBV vaccination, received a robles sfusion, or has recovered from HBV infect ion. This patient should be considered i mmune to hepatitis B.An anti-HBs result greater than or equal to 10 IU/L implies immunity. For post-vaccinatio n antibody testing guidelines for the general public refer to MMWR Decembe r 2004/Vol. 54(No. 16);1-, and f or healthcare workers refer to MMWR D ecember 2012/Vol. 62(No. 10);- .Reference Interval: anti-HBs 9.99 I U/L or less ....... Mxuhlfzg22.00 I U/L or greater .... PositiveResults greater than 1,000.00 IU/L are report ed as greater than 1,000.00 IU/L. This assay should not be used for blood donor screening, associated re-e ntry protocols, or for screening Human Cell, Tissues and Cellular and Ti ssue-Based Products (HCT/P).Perform ed by [employer], [address] [place] [address],[place] [phone] [email or web address], Kyle Ng MD - Lab. [facility] metabolic [id number] 06:47:26 Test Item Value Reference Range Interpretation Comments Sodium (test code = 2951-2) 133 135- 148 mEq/L L Potassium (test code = 2823-3) 5.2 3.5- 5.0 mEq/L H Chloride (test code = 5-0) 94 98- 112 mEq/L L CO2 (test code = 2027-9) 29 24- 31 mEq/L Anion gap (test code = 61010-1) 10@ANIO 7- 15 mEq/L BUN (test code = 3094-0) 38 mg/dL 6-20 H Creatinine (test code = 2160-0) 9.04 mg/dL 0.5-0.9 H Glucose (test code = 2345-7) 97 mg/dL 65-99 Calcium (test code = 34924-2) 9.0 mg/dL 8.3-10.2 Lab Interpretation (test code = Abnormal 90319-8) Nikunj MethodistEstimated [id number] 06:47:20 Test Item Value Reference Range Interpretation Comments Estimated GFR (test 4 mL/min/1.73 m2 Jenni stein Units code = 5488) InterpretationG 1 >=90 Tracy l or highG2 60-89 Mildly decrease dG3a 45-59 Mil dly to moderately decr qtfnkK2v 30-44 Moderately to s everely decreasedG4 15-29 Severe ly decreasedG5 <15 Kidney jai lureThe eGFR was calcul ated using the [facility] Kidney Disease Epidemiology Collaboration ( CKD-EPI) equation. Interpretation is based on recommendati ons of the National Ki dney Foundation-Kidn ey Disease Outcome s Quality Initiat irvin (NKF-KDOQI) pub lished in 2013. Lab Interpretation Abnormal (test code = 56222-0) Nikunj MethodistCBC with platelet and [id number] 06:35:41 Test Item Value Reference Range Interpretation Comments WBC (test code = 19787-3) 4.1 4.5- 11.0 k/uL L RBC (test code = 68496-7) 3.06 m/uL 4.2-5.5 L HGB (test code = 718-7) 9.4 g/dL 12-16 L HCT (test code = 4544-3) 28.6 % 37-47 L MCV (test code = 787-2) 93.5 fL 82-100 MCH (test code = 785-6) 30.7 pg 27-34 MCHC (test code = 786-4) 32.9 g/dL 31-37 RDW - SD (test code = 66141-3) 46.4 fL 37-55 MPV (test code = 33562-4) 10.8 fL 6.9-11 Platelet count (test code = 112 K/uL 150-400 L 78965-8) Nucleated RBC (test code = 60198-0) 0.00 /100 WBC Neutrophils (test code = 45215-9) 59.0 % 39-69 Lymphocytes (test code = 62519-0) 24.1 % 25-45 L Monocytes (test code = 66214-3) 10.2 % 0-10 H Eosinophils (test code = 75735-0) 6.3 % 0-5 H Basophils (test code = 38813-5) 0.2 % 0-1 Immature granulocytes (test code = 0.2 % 0-1 01453-5) Lab Interpretation (test code = Abnormal 65965-4) Nikunj MethodistPrepare RBC, 2 [id number] 15:14:00 Test Item Value Reference Range Interpretation Comments Product name (test Red Blood Cells -1, code = 25) Leukored Unit number (test code [id number] = 1710742) Product code (test S3997E40 code = 3092) Dispense status (test Transfused code = 24) Blood expiration date (test code = 302) Blood type code (test 5100 code = 308) Blood type (test code O POSITIVE = 1314) Circle MethodistType and [id number] 10:07:00 Test Item Value Reference Range Interpretation Comments ABO grouping (test code O 03/04 06/22 10:08 RBC = 883-9) available. sle l Rh type (test code = POS 29428-4) Antibody screen (gel) NEG (test code = 890-4) Calvin MethodistHepatitis B surface [id number] 21:38:41 Test Item Value Reference Range Interpretation Comments Hepatitis B surface Ab (test code = Reactive Non-reactive A 00114-5) Lab Interpretation (test code = Abnormal 99215-5) Circle MethodistHepatitis B surface [id number] 15:26:02 Test Item Value Reference Range Interpretation Comments Hepatitis B surface Ag (test Non-reactive Non-reactive code = 5195-3) Circle MethodistSurgical pathology [id number] 11:58:23 Test Item Value Reference Range Interpretation Comments Case number (test code = [id number]) Surgical pathology See link below for report (test code = PDF Lab Report [id number]) Result status (test code This is Final Report = [id number]) for [id number] Circle MethodistCTA Abdomen Pelvis W And Or Wo [id number] 08:31:59Hm Interface, Radiology Results 03/21/2019 8:35 AM CDTEXAM:CT ANGIOGRAM ABDOMEN PELVIS WAND OR WO CONTRASTINDICATION:UGI bleed nonvariceal no clear source on endoscopyCOMPARISON:None.TECHNIQUE:Before and after administration of iodinated contrast intravenously, axial CT images of the abdomen and pelvis were obtained. Coronal and sagittal maximal intensity projection images were obtained . 3-D volumetric reconstruction of the arterial system was obtained. Iterative reconstruction and/orautomated exposure control techniques were employed to reduce radiation dose.FINDINGS:Limited chest:Visualized portions of the esophagus are normal. Top normal heart size. Visualized pericardium is normal. No adenopathy in visualized chest.Small, simple pleural effusions bilaterally. Mild bibasilar dependent atelectasis.Abdomen:Hypodensity liver adjacent to falciform, likely focal fatty infiltration.Otherwise normal.No CT evidence of cholelithiasis. Moderate concentric thickening of the gallbladderwall which is nonspecific finding that can be seen with acalculous cholecystitis, heart failure/fluid overload, and secondary to adjacent hepatic parenchymal disease. If clinical concern for acute cholecystitis exists, consider further evaluation with HIDA scan.No intrahepatic biliary dilatation. Common bile duct is unremarkable.Pancreas is normal.Mild splenomegaly with spleen measuring up to 12.1 cmlong.Bilateral adrenals are normal.Marked renal cortical atrophy bilaterally. 1.3 cm diameter simplecyst left kidney upper pole (series 5, slice 46).Stomach is normal. Duodenum is normal. Remainder ofsmall bowel is normal. Appendix is and not well visualized. Mild concentric thickening of the right c olon through the transverse colon wall with submucosal hypodensity compatible with edema. Descendingand sigmoid colon are most likely normal. Distal sigmoid colon and rectum demonstrate moderate concentric wall thickening and submucosal hypodensity. Findings are compatible with multifocal colitis andproctitis, infectious versus inflammatory.No evidence of gastric or enterocolonic active extravasation.Pelvis:Small amount of free fluid layering within the pelvis.Rectum is above.Bladder is minimally distended with urine. Despite underdistention probable moderate concentric bladder wall thickening and perivesicular fat stranding, which may be suggestive of cystitis. Recommend correlation with urinalysis.Status post hysterectomy. Bilateral adnexa and vaginal cuff are unremarkable.Bilateral inguinal canals and ischiorectal fossa are normal.Vascular:Descending thoracic aorta: Minimal tortuosity. Normal course and caliber.Abdominal aorta: Normal course caliber.Celiac axis: Conventional celiac arterial anatomy. Normal course and caliber.Superior mesenteric artery: Normal course and caliber.Right renal artery: Solitary. Normal course and caliber.Left renal artery: Duplicated with tiny superior pole branch arising from the aorta superior to the main branch. Otherwise normal course caliber.Inferior mesenteric artery: Normal course and caliber.Right:Iliac arteries: Normal course and caliber.Visualizedfemoral arteries: Normal course caliber.Left:Iliac arteries: Trace calcified atherosclerotic plaque bifurcation left common iliac artery without associated luminal narrowing. Otherwise normal course and caliber.Visualized femoral arteries: Normal course and caliber.Full evaluation. Portal venous structures limited by contrast bolus timing.Splenic vein, superior mesenteric vein, portal vein, and intrahepatic portal venous branches are normal.No abdominal, pelvic, or inguinal adenopathy.Musculoskeletal :Multilevel Schmorl's nodes. No suspicious osseous soft tissue structures.IMPRESSION:1. No CT evidence of acute gastrointestinal hemorrhage/active extravasation.2. Findings suggestive of multifocal colitis and proctitis, infectious versus inflammatory.3. Findings suggestive of heart failure/fluid overload, including: Top normal heart size, Small bilateral pleural effusions with adjacent dependent atelectasis, small amount of ascites,4. Possible cystitis. Recommend further evaluation with urinalysis.5. Moderate concentric thickening of the gallbladder wall. No CT evidence of cholelithiasis. Findingsare nonspecific and can be secondary to acalculus cholecystitis, heart failure/fluid overload, and adjacent hepatic parenchymal disease. If indicated, consider further evaluation with gallbladder ultrasound an/or HIDA scan.[facility]-[id number] 12 [id number] 07:18:48 Test Item Value Reference Range Interpretation Comments Ventricular rate (test 75 code = 253) Atrial rate (test code = 75 255) PA interval (test code = 180 266) QRSD interval (test code 84 = 260) QT interval (test code = 394 264) QTC interval (test code 439 = 265) P axis 1 (test code = 49 267) QRS axis 1 (test code = 22 268) T wave axis (test code = 41 270) EKG impression (test Normal sinus code = 273) rhythm-Normal ECG-No previous ECGs available-Electronica lly Signed By Golden Kirkpatrick MD ([id number]) on 03/21/2019 7:18:46 AM Nikunj FalkFLOW PRA CLASS I AND [id number] 14:51:00 Test Item Value Reference Range Interpretation Comments DATE OF SERUM (BEAKER) [id number] (test code = 2289) SERUM # (BEAKER) (test [id number] code = 2290) FLOW PRA CLASS I AND II See Scanned Report (test code = 2421) HEPATITIS B SURFACE [id number] 14:25:00 Test Item Value Reference Range Interpretation Comments HEPATITIS B SURFACE ANTIBODY 32.5 mIU/mL <8.0 H (BEAKER) (test code = 647) FLOW PRA CLASS I AND [id number] 13:52:00 Test Item Value Reference Range Interpretation Comments DATE OF SERUM (BEAKER) [id number] (test code = 2289) SERUM # (BEAKER) (test [id number] code = 2290) FLOW PRA CLASS I AND II See Scanned Report (test code = 2421) FLOW PRA CLASS I AND [id number] 12:30:00 Test Item Value Reference Range Interpretation Comments DATE OF SERUM (BEAKER) [id number] (test code = 2289) SERUM # (BEAKER) (test 53953 code = 2290) FLOW PRA CLASS I AND II See Scanned Report (test code = 2421)
--- OUTSIDE RECORDS SUMMARY | 2020-03-20 17:35 | XMS REPORT | Summary of Care ---
:1965 Author Organization [facility] - Health Address [address] [place] [id number] Care Team Providers Name Role Phone Pcp, Patient Does Not Have A Primary Care Provider +[id number] 0-0000 Reason for Visit Transplant (Routine) Status Reason Specialty Diagnoses / Referred By Referred To Procedures Contact Contact Authorized Transplant Surgery Diagnoses ESRD Tissue Antigen Procedures [facility] [address] [place] [id number] Encounter Details Date Type Department Care Team Description 03/06/2020 Hospital Encounter [facility] Tissue Antigen Lab Quiana, Chin Modi MD [address] [place] [id number] [place] [address] [phone] Allergies No Known Allergiesdocumented as of this encounter (statuses as of 03/09/2020) Medications Medication Sig Dispensed Refills Start Date [...] as of this encounter (statuses as of 03/09/2020) Active Problems Problem Noted Date Essential hypertension 08/12/2016 Chest pain 08/22/2014 CKD (chronic kidney disease) stage 5, GFR less than 15 ml/min 08/22/2014 Anemia 08/22/2014 Lower GI bleed 08/22/2014 CKD (chronic kidney disease) stage V requiring chronic dialysis 08/22/2014 ARELY (acute kidney injury) 08/21/2014 HTN (hypertension) documented as of this encounter (statuses as of 03/09/2020) Social History Tobacco Use Types Packs/Day Years Used Date Never Smoker Smokeless Tobacco: Never Used Alcohol Use Drinks/Week oz/Week Comments No Sex Assigned at Date Recorded Not on file Job Start Date Occupation Industry Not on file Not on file Not on file Travel History Travel Start Travel End No recent travel history available. COVID-19 Exposure Response Date Recorded In the last month, have you been in contact Unable to assess 03/06/2020 1:53 PM CDT with someone who was confirmed or suspected to have Coronavirus / COVID-19? documented as of this encounter Last Filed Vital Signs Not on filedocumented in this encounter Plan of Treatment Health Maintenance Due Date Last Done Comments DTaP,Tdap,and Td Vaccines (1 02/12/1976 - Tdap) Depression Screening 1977 PAP SMEAR 1986 Breast Cancer Screening 2005 [...] Addre ss Type Group HUMANA - HUMANA [id number] 2018-[facility] Adv MANAGED MEDICARE ERS t PPO MEDICARE documented as of this encounter
--- NOTE | 2020-03-20 19:35 | ER ---
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 Coronavirus screen: bp Proceed with normal triage. Ebola Screen: No symptoms or risks identified at this time. Initial Sepsis Screen: Does the patient meet any 2 criteria? No. Patient's initial sepsis screen is negative. Does the patient have a suspected source of infection? No. Patient's initial sepsis screen is negative. Risk Assessment: Do you want to hurt yourself or someone else? Patient reports no desire to harm self or others. Onset of symptoms was March 20, 2020 at 15:00. 18:02 Method Of Arrival: Wheelchair bp 18:02 Acuity: MAXWELL 3 bp Triage Assessment: 19:20 General: Appears in no apparent distress. uncomfortable, Behavior is calm, cooperative, rr5 appropriate for age. Injury Description: swelling right foot. 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 - Social history:: Smoking status: Patient reports the use of cigarette tobacco products, unknown amount. Screenin:30 Abuse screen: Denies threats or abuse. Denies injuries from another. Nutritional rr5 screening: No deficits noted. Tuberculosis screening: No symptoms or risk factors identified. Fall Risk Ambulatory Aid- Crutches/Cane/Walker (15 pts). Gait- Impaired (20 pts.). Total Veliz Fall Scale indicates Low Risk Score (25-44 pts). Fall prevention measures have been instituted. Side Rails Up X 2 Frequent Obs/Assesments occuring Family Present and informed to notify staff if they need to leave bedside As available Patient and Family Educated on Fall Prevention Program and strategies. Assessment: 19:20 General: Appears in no apparent distress. uncomfortable, Behavior is calm, cooperative, rr5 appropriate for age. 19:20 Pain: Complains of pain in right foot Pain does not radiate. Pain currently is 7 out of rr5 10 on a pain scale. Quality of pain is described as aching, Pain began suddenly, Is intermittent. Neuro: Level of Consciousness is awake, alert, obeys commands, Oriented to person, place, time, situation. Cardiovascular: Capillary refill < 3 seconds Patient's skin is warm and dry. Dialysis shunt: in the left arm. Respiratory: Airway is patent Respiratory effort is even, unlabored, Respiratory pattern is regular, symmetrical. GI: No signs and/or symptoms were reported involving the gastrointestinal system. : No signs and/or symptoms were reported regarding the genitourinary system. EENT: No signs and/or symptoms were reported regarding the EENT system. Derm: Skin is intact, is healthy with good turgor, Skin temperature is warm. Musculoskeletal: Capillary refill < 3 seconds, Swelling present in right foot. 20:15 Reassessment: Patient appears in no apparent distress at this time. Patient is alert, rr5 oriented x 3, equal unlabored respirations, skin warm/dry/pink. ED provider checked the splint.discharge instruction given and explained without complaints made. Patient states symptoms have improved. Vital Signs: 18:02 BP 179 / 79; Pulse 71; Resp 16; Temp 97.5; Pulse Ox 100% ; Weight 56.25 kg; Height 5 bp ft. 2 in. (157.48 cm); 19:30 BP 189 / 92; Pulse 73; Resp 16; Pulse Ox 98% on R/A; Pain 7/10; rr5 20:30 BP 176 / 80; Pulse 75; Resp 17; Temp 98; Pulse Ox 99% ; rr5 18:02 Body Mass Index 22.68 (56.25 kg, 157.48 cm) bp ED Course: 17:34 Patient arrived in ED. ag5 17:34 Ar Raygoza MD is Private Physician. ag5 18:03 Triage completed. bp 18:04 Arm band placed on. bp 18:39 Shelbi Mayes FNP-C [facility]. snw 18:39 Neeraj Saleh MD is Attending Physician. snw 19:09 Huy Jo, RN is Primary Nurse. rr5 19:30 Patient has correct armband on for positive identification. Bed in low position. Call rr5 light in reach. 19:33 Ar Raygoza MD is Referral Physician. snw 19:34 Booker Morris MD is Referral Physician. snw 19:40 Foot Right 3 View XRAY In Process Unspecified. EDMS 20:00 Orthoglass splint: Posterior short lleg splint applied on right leg. dh4 20:20 No provider procedures requiring assistance completed. Patient did not have IV access rr5 during this emergency room visit. walker given. Administered Medications: 19:40 Drug: Jakin 5 mg-325 mg 1 tabs {Note: rass 0.} Route: PO; rr5 20:20 Follow up: Response: No adverse reaction; Pain is decreased; RASS: Alert and Calm (0) rr5 Outcome: 19:34 Discharge ordered by MD. snw 20:20 Patient left the ED. rr5 20:20 Discharged to home with family, with walker rr5 20:20 Condition: stable 20:20 Discharge instructions given to patient, Instructed on discharge instructions, follow up and referral plans. using a walker Demonstrated understanding of instructions, follow-up care, using walker Signatures: Dispatcher [employer] EDMS Shelbi Mayes FNP-C LABORATORY TECHNICAL SPECIALIST-Csnw Jimmy Coats RN RN bp Huy Jo, ELBERT RN rr5 Maria E Gibbs 5 Alfredo Atkinson 4 Corrections: (The following items were deleted from the chart) 20:32 20:29 Reassessment: Patient appears in no apparent distress at this time. Patient is rr5 alert, oriented x 3, equal unlabored respirations, skin warm/dry/pink. ED provider checked the splint.discharge instruction given and explained without complaints made. Patient states symptoms have improved. rr5
--- NOTE | 2020-03-20 19:35 | EDPHYS ---
Physician Documentation [facility] Name: Poonam Meredith Age: 55 yrs Sex: Female : 1965 Arrival Date: 03/20/2020 Time: 17:34 Bed 23 Private MD: Ar Raygoza S ED Physician Neeraj Saleh HPI: 03/20 19:32 This 55 yrs old Female presents to ER via Wheelchair with complaints of Foot snw Injury. 19:32 The patient presents with pain, swelling, tenderness. The complaints affect the lateral snw aspect of right foot. Context: resulted from a mis-step, on a curb, the patient can partially bear weight, the patient is able to ambulate, Problem is a result from a previous injury: No. twisted right foot and heard pop, tenderness and edema to right lateral foot. Onset: The symptoms/episode began/occurred suddenly. Associated signs and symptoms: Pertinent positives: swelling. Severity of symptoms: At their worst the symptoms were mild. The patient has not experienced similar symptoms in the past. pt gets dialysis. 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 - Social history:: Smoking status: Patient reports the use of cigarette tobacco products, unknown amount. ROS: 19:31 Constitutional: Negative for fever, chills, and weight loss, Eyes: Negative for injury, snw pain, redness, and discharge, ENT: Negative for injury, pain, and discharge, Neck: Negative for injury, pain, and swelling, Cardiovascular: Negative for chest pain, palpitations, and edema, Respiratory: Negative for shortness of breath, cough, wheezing, and pleuritic chest pain, Abdomen/GI: Negative for abdominal pain, nausea, vomiting, diarrhea, and constipation, Back: Negative for injury and pain, : Negative for injury, bleeding, discharge, and swelling, Skin: Negative for injury, rash, and discoloration, Neuro: Negative for headache, weakness, numbness, tingling, and seizure. 19:31 MS/extremity: Positive for injury or acute deformity, pain, swelling, of the dorsum of right foot. Exam: 19:29 Constitutional: This is a well developed, well nourished patient who is awake, alert, snw and in no acute distress. Head/Face: Normocephalic, atraumatic. Eyes: Pupils equal round and reactive to light, extra-ocular motions intact. Lids and lashes normal. Conjunctiva and sclera are non-icteric and not injected. Cornea within normal limits. Periorbital areas with no swelling, redness, or edema. ENT: Nares patent. No nasal discharge, no septal abnormalities noted. Tympanic membranes are normal and external auditory canals are clear. Oropharynx with no redness, swelling, or masses, exudates, or evidence of obstruction, uvula midline. Mucous membranes moist. Neck: Trachea midline, no thyromegaly or masses palpated, and no cervical lymphadenopathy. Supple, full range of motion without nuchal rigidity, or vertebral point tenderness. No Meningismus. Chest/axilla: Normal chest wall appearance and motion. Nontender with no deformity. No lesions are appreciated. Cardiovascular: Regular rate and rhythm with a normal S1 and S2. No gallops, murmurs, or rubs. Normal PMI, no JVD. No pulse deficits. Respiratory: Lungs have equal breath sounds bilaterally, clear to auscultation and percussion. No rales, rhonchi or wheezes noted. No increased work of breathing, no retractions or nasal flaring. Abdomen/GI: Soft, non-tender, with normal bowel sounds. No distension or tympany. No guarding or rebound. No evidence of tenderness throughout. Back: No spinal tenderness. No costovertebral tenderness. Full range of motion. Neuro: Awake and alert, GCS 15, oriented to person, place, time, and situation. Cranial nerves II-XII grossly intact. Motor strength 5/5 in all extremities. Sensory grossly intact. Cerebellar exam normal. Normal gait. Psych: Awake, alert, with orientation to person, place and time. Behavior, mood, and affect are within normal limits. 19:29 Musculoskeletal/extremity: Extremities: grossly normal except: noted in the dorsum of right foot: ecchymosis, swelling, tenderness, Circulation is intact in all extremities. Sensation intact. Compartment Syndrome exam of affected extremity: is normal. Weight bearing: can bear weight with assistance only, limping. 19:29 Skin: Appearance: Color: mildly darkened, Moisture: dry, ecchymosis, noted on the, dorsum of right foot. 19:29 Neuro: Exam negative for acute changes. Vital Signs: 18:02 BP 179 / 79; Pulse 71; Resp 16; Temp 97.5; Pulse Ox 100% ; Weight 56.25 kg; Height 5 bp ft. 2 in. (157.48 cm); 19:30 BP 189 / 92; Pulse 73; Resp 16; Pulse Ox 98% on R/A; Pain 7/10; rr5 20:30 BP 176 / 80; Pulse 75; Resp 17; Temp 98; Pulse Ox 99% ; rr5 18:02 Body Mass Index 22.68 (56.25 kg, 157.48 cm) bp Procedures: 19:27 Splinting: Splint applied to right foot using Orthoglass splint, applied by nurse. snw Patient tolerated well. MDM: 19:08 Patient medically screened. snw 19:28 Data reviewed: vital signs, nurses notes. Data interpreted: Pulse oximetry: on room air snw is 100 %. Interpretation: normal. Counseling: I had a detailed discussion with the patient and/or guardian regarding: the historical points, exam findings, and any diagnostic results supporting the discharge/admit diagnosis, the presence of at least one elevated blood pressure reading (>120/80) during this emergency department visit, radiology results, the need for outpatient follow up, to return to the emergency department if symptoms worsen or persist or if there are any questions or concerns that arise at home. Special discussion: I have referred the patient to see his PCP for further evaluation of high blood pressure. Based on the history and exam findings, there is no indication for further emergent testing or inpatient evaluation. I discussed with the patient/guardian the need to see the orthopedic surgeon for further evaluation of the symptoms. I discussed with the patient/guardian the need to see the primary care provider for further evaluation of the symptoms. 03/20 19:10 Order name: Foot Right 3 View XRAY rr5 03/20 19:27 Order name: Posterior Leg Splint; Complete Time: 20:33 snw 03/20 19:27 Order name: Misc. Order: walker; Complete Time: 20:33 snw Administered Medications: 19:40 Drug: Clayton 5 mg-325 mg 1 tabs {Note: rass 0.} Route: PO; rr5 20:20 Follow up: Response: No adverse reaction; Pain is decreased; RASS: Alert and Calm (0) rr5 Disposition: 03/21 13:29 Co-signature as Attending Physician, Neeraj Saleh MD I agree with the assessment and pascual plan of care. Disposition: 03/20/20 19:34 Discharged to Home. Impression: Fracture of fifth metatarsal bone. - Condition is Stable. - Discharge Instructions: Cast or Splint Care, Adult, Metatarsal Fracture, RICE for Routine Care of Injuries. - Medication Reconciliation Form, Thank You Letter, Antibiotic Education, Prescription Opioid Use form. - Follow up: Ar Raygoza MD; When: 1 week; Reason: Recheck today's complaints, Continuance of care, Re-evaluation by your physician. Follow up: Booker Morris MD; When: 2 - 3 days; Reason: Recheck today's complaints, Continuance of care. - Problem is new. - Symptoms are unchanged. Signatures: Dispatcher [employer] [facility] Neeraj Saleh MD MD cha Therrien, Shelly, CHIEF CHEMIST-C CHIEF CHEMIST-Csnw Jimmy Coats, RN RN Huy Lopez RN RN rr5 Corrections: (The following items were deleted from the chart) 03/20 19:44 18:02 Ankle Right 3 View+RAD.RAD.BRZ ordered. [facility] 20:20 19:34 03/20/2020 19:34 Discharged to Home. Impression: Fracture of fifth metatarsal rr5 bone. Condition is Stable. Forms are Medication Reconciliation Form, Thank You Letter, Antibiotic Education, Prescription Opioid Use. Follow up: Ar Raygoza; When: 1 week; Reason: Recheck today's complaints, Continuance of care, Re-evaluation by your physician. Follow up: Booker Morris; When: 2 - 3 days; Reason: Recheck today's complaints, Continuance of care. Problem is new. Symptoms are unchanged. snw
[2020-03-20] MEDS ORDERED: HYDROCODONE/APAP 5/325 MG TAB ONE (19:44)
--- NOTE | 2020-03-20 20:19 | RAD REPORT ---
EXAM DESCRIPTION: RAD - Foot Right 3 View - 03/20/2020 7:40 pm CLINICAL HISTORY: Right foot pain status post injury FINDINGS: Nondisplaced fracture involves the base of the fifth metatarsal. No dislocation
[2020-03-20 20:48] VITALS: BP 179/79; TEMP 97.5; O2SAT 100
== END 2020-03-20 20:20 | disposition home or self-care (01) ==
LOC: ER 17:32
PROC: 2W3QX1Z Immobilization of Right Lower Leg using Splint (ICD-10-PCS; principal; 2020-03-20)
DX: S92.351A Displaced fracture of fifth metatarsal bone, right foot, initial encounter for closed fracture (principal); X50.1XXA Overexertion from prolonged static or awkward postures, initial encounter; Y93.01 Activity, walking, marching and hiking; Y92.89 Other specified places as the place of occurrence of the external cause; Z99.2 Dependence on renal dialysis; Z79.82 Long term (current) use of aspirin; Z72.0 Tobacco use; I10 Essential (primary) hypertension
CPT/HCPCS: 99283

== ENCOUNTER 2024-12-27 21:21 | Emergency (ER) | payer OTHER ==
--- NOTE | 2024-12-27 22:22 | RAD REPORT ---
Procedure: Chest Single View HISTORY: Shortness of breath COMPARISON: 2019 FINDINGS: The lungs appear clear of acute infiltrate. No significant pleural effusion noted. The heart is normal size. Left subclavian stent in place IMPRESSION: No acute abnormality is displayed.
[2024-12-27 22:33] LABS: Absolute Lymphocytes (CBC) 0.5 K/uL (0.7-4.9); Absolute Monocytes 0.1 K/uL (0.1-1.3); Absolute Neutrophil 4.6 K/uL (1.8-8.0); Basophils % 0.3 % (0-1.3); Eosinophils % 0.3 % (0-4.4); Hematocrit 39.5 % (36.0-45.0); Hemoglobin 13.2 g/dL (12.0-15.0); MCH 28.7 pg (27.0-35.0); MCHC 33.4 g/dL (32.0-36.0); MPV 8.7 fL (7.6-11.3); Monocytes % 2.5 % (3.3-12.3); Neutrophils % 87.9 % (41.7-73.7); Nucleated Red Blood Cells % 0.2 % (0-0); Platelets 190 thou/uL (152-406); Red Cell Distribution Width 15.8 % (12.1-15.2)
[2024-12-27 22:53] LABS: AST/SGOT 12 U/L (15-37); Albumin 3.8 g/dL (3.4-5.0); Albumin/Globulin Ratio 0.9 (1.1-1.8); Alkaline Phosphatase 95 U/L (45-117); Anion Gap 12.2 mEq/L (5.0-15.0); BUN Blood Urea Nitrogen 27 mg/dL (7-18); Bicarbonate 24 mEq/L (21-32); Bilirubin Direct 0.3 mg/dL (0-0.2); Bilirubin Indirect, Calculated 0.9 mg/dL (0.2-0.8); Bilirubin Total 1.2 mg/dL (0.2-1.0); Globulin 4.1 g/dL (2.3-3.5); Glomerular Filtration Rate 35 ml/min (=/>90); Glucose Level 97 mg/dL (74-106); Magnesium 2.4 mg/dL (1.6-2.4); Potassium 4.2 mEq/L (3.5-5.1); Protein, Total 7.9 g/dL (6.4-8.2); Sodium Level 133 mEq/L (136-145); Troponin High Sensitivity 5.2 pg/mL (<58.9)
[2024-12-27 22:57] LABS: ALT/SGPT < 14 U/L (13-56)
[2024-12-27 23:41] LABS: PT Prothrombin Time 11.8 SECONDS (10-13.0); PTT, Activated Partial Thromb 30.5 SECONDS (27.2-37.4); Protime INR 1.04
--- NOTE | 2024-12-27 23:53 | RAD REPORT ---
EXAM DESCRIPTION: Head angio (accession [id number]), Neck Angio (accession [id number]) CLINICAL HISTORY: 59 years Female, Headache;Weakness TECHNIQUE: Helical CT axial images are obtained from the base thoracic inlet through the vertex with IV contrast. Multiplanar reconstruction. MIP reconstruction plus or minus 3D image processing was also performed. NASCET criteria using the distal ICAs for comparison were used for evaluation of martínez tid stenosis. This exam was performed according to our departmental dose-optimization program, which includes automated exposure control, adjustment of the mA and/or kV according to patient size a nd/or use of iterative reconstruction technique. COMPARISON: Noncontrast CT brain performed same time FINDINGS: CTA BRAIN: Distal aspect of bilateral internal carotid arteries are normal in caliber and morphology without f ocal stenosis or aneurysm. Bilateral anterior and middle cerebral arteries have a normal appearance. A patent anterior communicating artery is not seen.. Basilar artery is small normal in caliber and morphology without high-grade stenosis or basilar tip aneurysm. origin right PL SQL PROGRAMMER with moderate hypoplasia right P1 segment, normal variant. Left PL SQL PROGRAMMER emanates from the basilar tip. Beyond their P1 segments, bilateral cardiology manager are otherwise within norm al limits. Patent left PCOM. No aneurysm, branch occlusion, arteriovenous malformation or other vascular anomalies. CTA NECK: RIGHT CAROTID: Normal appearing carotid bifurcation. Cervical course of the internal carotid artery is within normal limits without focal stenosis, aneurysm, or dissection. Normal CCA. Origin and proximal visualized branches of the external carotid artery appears normal. LEFT CAROTID: Mild atherosclerotic calcification proximal ICA. Cervical course of the internal martínez tid artery is within normal limits without focal stenosis, aneurysm, or dissection. Normal CCA. Origin and proximal visualized branches of the external carotid artery appears normal. VERTEBRAL: Bilateral vertebral arteries have a normal appearance with co-dominance. OTHER: Noncontributory. SOFT TISSUES: Partially seen left subclavian venous stent. IMPRESSION: 1. Negative CTA of the brain and neck. 2. origin right PL SQL PROGRAMMER with moderate hypoplasia right P1 segment, normal variant. Electronically signed by: Nickolas Amaro MD 12/27/2024 11:31 PM CDT RP N Due to temporary technical issues with the PACS/fundfindr reporting system, reports are being kishore d by the in-house radiologist without review as a courtesy to ensure prompt reporting the interpreting radiologist is fully responsible for the content of the report. Transcribed Date/Time: 12/27/2024 11:53 PM
--- NOTE | 2024-12-27 23:53 | RAD REPORT ---
EXAM DESCRIPTION: Head angio (accession [id number]), Neck Angio (accession [id number]) CLINICAL HISTORY: 59 years Female, Headache;Weakness TECHNIQUE: Helical CT axial images are obtained from the base thoracic inlet through the vertex with IV contrast. Multiplanar reconstruction. MIP reconstruction plus or minus 3D image processing was also performed. NASCET criteria using the distal ICAs for comparison were used for evaluation of martínez tid stenosis. This exam was performed according to our departmental dose-optimization program, which includes automated exposure control, adjustment of the mA and/or kV according to patient size a nd/or use of iterative reconstruction technique. COMPARISON: Noncontrast CT brain performed same time FINDINGS: CTA BRAIN: Distal aspect of bilateral internal carotid arteries are normal in caliber and morphology without f ocal stenosis or aneurysm. Bilateral anterior and middle cerebral arteries have a normal appearance. A patent anterior communicating artery is not seen.. Basilar artery is small normal in caliber and morphology without high-grade stenosis or basilar tip aneurysm. origin right CORRESPONDENCE COORDINATOR with moderate hypoplasia right P1 segment, normal variant. Left CORRESPONDENCE COORDINATOR emanates from the basilar tip. Beyond their P1 segments, bilateral dinkey brakeman are otherwise within norm al limits. Patent left PCOM. No aneurysm, branch occlusion, arteriovenous malformation or other vascular anomalies. CTA NECK: RIGHT CAROTID: Normal appearing carotid bifurcation. Cervical course of the internal carotid artery is within normal limits without focal stenosis, aneurysm, or dissection. Normal CCA. Origin and proximal visualized branches of the external carotid artery appears normal. LEFT CAROTID: Mild atherosclerotic calcification proximal ICA. Cervical course of the internal martínez tid artery is within normal limits without focal stenosis, aneurysm, or dissection. Normal CCA. Origin and proximal visualized branches of the external carotid artery appears normal. VERTEBRAL: Bilateral vertebral arteries have a normal appearance with co-dominance. OTHER: Noncontributory. SOFT TISSUES: Partially seen left subclavian venous stent. IMPRESSION: 1. Negative CTA of the brain and neck. 2. origin right CORRESPONDENCE COORDINATOR with moderate hypoplasia right P1 segment, normal variant. Electronically signed by: Nickolas Amaro MD 12/27/2024 11:31 PM CDT RP N Due to temporary technical issues with the PACS/Tri[employer]o reporting system, reports are being kishore d by the in-house radiologist without review as a courtesy to ensure prompt reporting the interpreting radiologist is fully responsible for the content of the report. Transcribed Date/Time: 12/27/2024 11:53 PM
--- NOTE | 2024-12-27 23:59 | RAD REPORT ---
ADDENDUM #1 Results called to and acknowledged by the Dr. Wheat at 11:28 PM CDT central time Electronically signed by: Cristopher Parker MD 12/27/2024 11:54 PM CDT RP Workstation: [id number] End of Addendum EXAM: Head Brain Wo Cont CLINICAL INDICATION: STROKE ALERT. COMPARISON: none available. TECHNIQUE: CT of the head was obtained without contrast. Reformats: coronal and sagittal. This exam was performed according to our department optimization program which includes automated exp osure control, adjustment of the mA and/or kv according to patient size and/or use of iterative reconstruction technique. FINDINGS: Head: Parenchyma: no acute intraparenchymal hemorrhage. No midline shift. The mckoy-white interface is prese rved. Extra-axial spaces: no identified fluid collections. Ventricles: normal in size and configuration. Orbits/sinuses: the paranasal sinuses and mastoid air cells are clear. The visualized orbits are unre markable. Bones/scalp: no acute skull fracture identified. The scalp appears unremarkable. IMPRESSION: 1. No acute hemorrhage, mass effect, extra-axial fluid collection, or territorial infarct. A Recommend MRI with diffusion-weighted imaging if persistent clinical concern for acute infarct. Electronically signed by: Cristopher Parker MD 12/27/2024 11:22 PM CDT RP [employer] [id number] Due to temporary technical issues with the PACS/[employer]oz[employer] reporting system, reports are being kishore d by the in-house radiologist without review as a courtesy to ensure prompt reporting the interpreting radiologist is fully responsible for the content of the report. Transcribed Date/Time: 12/27/2024 11:58 PM
[2024-12-28 00:21] LABS: Blood Morphology Comment NOT SEEN (NOT SEEN); Platelet Estimate ADEQ; White Blood Cell Scan OK (OK)
[2024-12-28] MEDS ORDERED: DIPHENHYDRAMINE 50 MG/ML VIAL ONE (00:45)
[2024-12-28] MEDS ORDERED: NA CHLORIDE 0.9% 50 ML ONE (00:46)
[2024-12-28] MEDS ORDERED: METOCLOPRAMIDE 10 MG/2mL INJ ONE (00:46)
--- NOTE | 2024-12-28 01:34 | EDPHYS ---
Physician Documentation [facility] [place] Name: Poonam Meredith Age: 59 yrs Sex: Female : 1965 Arrival Date: 12/27/2024 Time: 21:21 Bed 5 Private MD: MILIND Physician Shanda Wheat HPI: 12/27 21:51 This 59 yrs old Female presents to ER via Wheelchair with complaints of sw6 Headache, WEAKNESS IN LOW EXT. 21:51 The patient complains of pain to the right synagogue. The patient describes the headache sw6 as intermittent. Onset: The symptoms/episode began/occurred Wednesday. Associated signs and symptoms:. Associated signs and symptoms: Pertinent positives: nausea, vomiting, weakness, Pertinent negatives: altered mental status, dizziness, neck stiffness, Photophobia vertigo. Severity of symptoms: At its worst the pain was moderate, in the emergency department the pain has improved. Headache History: Denies prior headaches. The symptoms are alleviated by nothing. The patient has not experienced similar symptoms in the past. The patient presents from home for evaluation for right-sided headache that started on Wednesday. Today is Wednesday. She reports that her headache has been waxing and waning but never seems to go away. She did have a fall yesterday but none of prior to the headache starting. She does also have intermittent nausea and vomiting and last vomited about 3 hours ago. She tried some Tylenol for headache yesterday but nothing for the pain today. She also reports she started to get weakness in her bilateral legs starting yesterday evening around 6 PM. She has been getting around her home today by holding onto things. No blurry vision. No weakness to her arms. No facial asymmetry. No difficulty with her speech. No numbness to her arms or legs. She does have a history of a kidney transplant almost 3 years ago done at [facility]. She still has her left sided AV fistula but no longer receives dialysis. She does make urine. She did see her nephrology team earlier this month and reports things are going well. No history of high blood pressure or diabetes. She admits to compliance with her antirejection medication. No fevers. No history of headaches in the past. No change in her headache symptoms with bright lights or loud sounds. No neck pain or pressure. No loss of bowel or bladder function. Here for evaluation.. Historical: - Allergies: 21:43 Ancef; iw - PMHx: 21:41 Dialysis; Hypertension; iw - PSHx: 21:41 kidney transplant; iw - Immunization history:: Adult Immunizations not up to date, Last tetanus immunization:. - Infectious Disease History:: Denies. - Social history:: Smoking status: Patient denies any tobacco usage or history of. ROS: 21:51 Abdomen/GI: Positive for nausea and vomiting, sw6 21:51 Neuro: Positive for headache, weakness, 21:51 All other systems are negative, 12/28 01:34 Constitutional: Negative for fever, chills, and weight loss, sw6 Exam: 12/27 21:51 Constitutional: This is a well developed, well nourished patient who is awake, alert, sw6 and in no acute distress. Neck: Trachea midline, no thyromegaly or masses palpated, and no cervical lymphadenopathy. Supple, full range of motion without nuchal rigidity, or vertebral point tenderness. No Meningismus. Chest/axilla: Normal chest wall appearance and motion. Nontender with no deformity. No lesions are appreciated. Cardiovascular: Regular rate and rhythm with a normal S1 and S2. No gallops, murmurs, or rubs. Normal PMI, no JVD. No pulse deficits. Respiratory: Lungs have equal breath sounds bilaterally, clear to auscultation and percussion. No rales, rhonchi or wheezes noted. No increased work of breathing, no retractions or nasal flaring. Abdomen/GI: Soft, non-tender, with normal bowel sounds. No distension or tympany. No guarding or rebound. No evidence of tenderness throughout. Skin: Left upper arm AV fistula with a palpable thrill.. Neuro: Orientation: is normal, Mentation: is normal, Memory: is normal, Motor: Muscle strength is 5/5 to upper extremities however 4/5 to lower extremities bilaterally., Sensation: is normal, Vital Signs: 21:42 BP 130 / 81; Pulse 101; Resp 16; Pulse Ox 100% on R/A; iw 23:27 BP 122 / 78; Pulse 77; Resp 18; Pulse Ox 100% ; cp4 12/28 01:41 BP 136 / 92; Pulse 78; Resp 18; Pulse Ox 98% on R/A; NIH Stroke Scale Scores: 12/27 21:51 NIHSS Score: 4 sw6 [place] Coma Score: 21:51 Eye Response: spontaneous(4). Motor Response: obeys commands(6). Verbal Response: sw6 oriented(5). Total: 15. MDM: 21:24 Medical Screening Exam initiated 21:51 Differential diagnosis: cluster headache, cerebral vascular accident, neoplasm, sw6 subarachnoid bleed, subdural hematoma. Data reviewed: vital signs, nurses notes. 12/28 01:31 Data reviewed: lab test result(s), radiologic studies, CT scan. ED course: The patient kelsea is doing well in the ER. The CT of her head shows no acute intracranial abnormalities. The CT angiogram of her head and neck showed no evidence of a stroke or any large vessel occlusions. Her laboratory studies show a creatinine of 1.69. She is unsure of what her baseline creatinine is so it is on clear if this is her baseline or not. She reports her headache has resolved after administration of medications given here today. She feels like the weakness to her legs has also resolved. Suspect she had an atypical migraine. She remained stable here in the ER and is okay for discharge home with PCP follow-up.. 12/27 21:50 Order name: Basic Metabolic Panel; Complete Time: 23:20 [facility] 12/27 23:21 Interpretation: Abnormal. [facility] 12/27 21:50 Order name: CBC with Diff; Complete Time: 01:15 12/27 21:50 Order name: Hepatic Function; Complete Time: 23:20 [facility] 12/27 23:21 Interpretation: Abnormal: Hyperbilirubinemia. 12/27 21:50 Order name: High Sensitivity Troponin; Complete Time: 23:20 [facility] 12/27 23:21 Interpretation: Within normal limits. 12/27 21:50 Order name: Magnesium; Complete Time: 23:20 [facility] 12/27 23:21 Interpretation: Within normal limits. [facility] 12/27 21:50 Order name: Protime (+inr); Complete Time: 01:15 [facility] 12/28 01:15 Interpretation: Within normal limits. 12/27 21:50 Order name: Ptt, Activated; Complete Time: 01:15 12/28 01:15 Interpretation: Within normal limits. 12/27 22:28 Order name: Glucose, Ancillary Testing; Complete Time: 23:20 [facility] 12/27 23:21 Interpretation: Within normal limits. 12/27 23:32 Order name: CREATININE WHOLE BLOOD; Complete Time: 01:15 [facility] 12/28 01:15 Interpretation: Abnormal. 12/28 00:21 Order name: CBC Smear Scan; Complete Time: 01:15 [facility] 12/27 21:50 Order name: CT Head Angio 12/28 01:16 Interpretation: No acute disease. 12/27 21:50 Order name: CT Neck Angio 12/28 01:16 Interpretation: No acute disease. 12/27 21:50 Order name: Stroke CXR 1 View; Complete Time: 23:20 12/27 23:21 Interpretation: No acute disease. 12/27 22:11 Order name: Head Brain Wo Cont 12/28 01:16 Interpretation: No acute disease. 12/27 21:50 Order name: Accucheck; Complete Time: 22:27 12/27 21:50 Order name: Cardiac monitoring; Complete Time: 22:27 12/27 21:50 Order name: EKG - Nurse/Tech; Complete Time: 22:27 12/27 21:50 Order name: IV Saline Lock; Complete Time: 22:26 12/27 21:50 Order name: Labs collected and sent; Complete Time: 22:27 12/27 21:50 Order name: NPO; Complete Time: 22:28 12/27 21:50 Order name: O2 Per Protocol; Complete Time: 22:05 12/27 21:50 Order name: O2 Sat Monitoring; Complete Time: 22:05 12/27 21:50 Order name: Stroke Swallow Screen; Complete Time: 22:48 Administered Medications: 00:56 Drug: metoCLOPramide IVP 10 mg IVP once; over 1 to 2 minutes Route: IVP; Site: right vc1 antecubital; 00:56 Drug: diphenhydrAMINE IVP 25 mg IVP once Route: IVP; Site: right antecubital; vc1 Disposition Summary: 12/28/24 01:33 Discharge Ordered Notes: Location: Home [facility] Problem: new [facility] Symptoms: are resolved Condition: Stable [facility] Diagnosis - Migraine without aura, not intractable sw6 Discharge Instructions: - Discharge Summary Sheet sw6 - Migraine Headache sw6 - Migraine Headache, Ophu-ry-Kcms sw6 Forms: - Medication Reconciliation Form sw6 - Antibiotic Education sw6 - Prescription Opioid Use sw6 - Patient Portal Instructions sw6 - Leadership Thank You Letter sw6 NIH Stroke Scale - NIH Stroke Score Date: 12/27/2024 Time: 21:51 Total Score = 4 10. Dysarthria (speech clarity - read or repeat words) - 0(Normal) 11. Extinction and Inattention (visual/tactile/auditory/spatial/personal) - 0(No abnormality) 1a. Level of Consciousness (LOC) - 0(Alert) 1b. Level of Consciousness (LOC) (Month \T\ Age) - 0(Both) 1c. LOC Commands (Open \T\ Closes Eyes/Window Shade Estimator) - 0(Both) 2. Best Gaze (Lateral Gaze Paresis) - 0(Normal) 3. Visual Field Loss - 0(No visual loss) 4. Facial Palsy - 0(Normal) 5a. Left Arm: Motor (10-second hold) - 0(No drift) 5b. Right Arm: Motor (10-second hold) - 0(No drift) 6a. Left Leg: Motor (5-second hold - always test supine) - 2(Drift, some effort against gravity) 6b. Right Leg: Motor (5-second hold - always test supine) - 2(Drift, some effort against gravity) 7. Limb Ataxia (finger/nose \T\ heel/clark - test with eyes open) - 0(Absent) 8. Sensory Loss (pinprick arms/legs/face) - 0(Normal) 9. Best Language: Aphasia (description/naming/reading) - 0(No aphasia) Initials: [facility] Signatures: Dispatcher [employer] EDMS Nella Zacarias RN RN kl Williams, Irene, RN RN Kimmy Villanueva RN RN vc1 Shanda Wheat MD MD [facility] Corrections: (The following items were deleted from the chart) 12/27 21:43 21:42 Allergies: No Known Allergies; [facility] 21:51 21:51 BASIC METABOLIC PANEL+C.LAB.BRZ ordered. EDMS EDMS 21:51 21:51 CBC+H.LAB.BRZ ordered. EDMS EDMS 21:51 21:51 HEPATIC FUNCTION+C.LAB.BRZ ordered. EDMS EDMS 21:51 21:51 Troponin High Sensitivity+C.LAB.BRZ ordered. EDMS EDMS 21:51 21:51 MAGNESIUM+C.LAB.BRZ ordered. EDMS EDMS 21:51 21:51 PROTIME (+INR)+COAG.LAB.BRZ ordered. EDMS EDMS 21:51 21:51 PTT, ACTIVATED+COAG.LAB.BRZ ordered. EDMS EDMS 21:51 21:51 Head Angio+CT.RAD.BRZ ordered. EDMS EDMS 21:51 21:51 Neck Angio+CT.RAD.BRZ ordered. EDMS EDMS 21:51 21:51 CT-STROKE BRAIN W/O CONTRAST+CT.RAD.BRZ ordered. EDMS EDMS 21:51 21:51 Chest Single View+RAD.RAD.BRZ ordered. EDMS EDMS 12/28 01:15 12/27 23:21 Within normal limits. sw6 sw6
--- NOTE | 2024-12-28 01:34 | ER ---
Nurse's Notes [facility] [place] Name: Poonam Meredith Age: 59 yrs Sex: Female : 1965 Arrival Date: 12/27/2024 Time: 21:21 Bed 5 Private MD: Diagnosis: Migraine without aura, not intractable Presentation: 12/27 21:40 Chief complaint: Patient states: headache for a few days comes and goes, +nausea, her iw legs feel weak. Coronavirus screen: At this time, the client does not indicate any symptoms associated with coronavirus-19. Ebola Screen: No symptoms or risks identified at this time. Initial Sepsis Screen: Does the patient meet any 2 criteria? No. Patient's initial sepsis screen is negative. Does the patient have a suspected source of infection? No. Patient's initial sepsis screen is negative. 21:40 Method Of Arrival: Wheelchair iw 21:40 Acuity: MAXWELL 3 iw 12/28 01:42 Risk Assessment: Do you want to hurt yourself or someone else? Patient reports no kl desire to harm self or others. Onset of symptoms was December 27, 2024. Triage Assessment: 12/27 21:47 Headache History: Denies prior headaches. General: Appears in no apparent distress. iw Behavior is calm, appropriate for age. Pain: Complains of pain in head Pain. 12/28 01:42 Pain: Also complains of no other associated symptoms. kl Historical: - Allergies: 12/27 21:43 Ancef; iw - PMHx: 21:41 Dialysis; Hypertension; iw - PSHx: 21:41 kidney transplant; iw - Immunization history:: Adult Immunizations not up to date, Last tetanus immunization:. - Infectious Disease History:: Denies. - Social history:: Smoking status: Patient denies any tobacco usage or history of. Screenin:49 Caitlin Swallow Protocol Exclusion Criteria: Brief Cognitive Screen What is your name? cp4 Normal, Where are you right now? Normal, What year is it? Normal. Oral Mechanism Examination Facial Symmetry: Normal, Motion: Normal, Lip Closure: Normal, 3 oz Water Swallow Challenge: Pt able to drink all water without stopping, coughing, choking or throat clearing: Yes Result: PASS. 12/28 01:42 [facility] ED Fall Risk Assessment (Adult) History of falling in the last 3 months, kl including since admission No falls in past 3 months (0 pts) Confusion or Disorientation No (0 pts) Intoxicated or Sedated No (0 pts) Impaired Gait No (0 pts) Mobility Assist Device Used No (0 pt) Altered Elimination No (0 pt) Score/Fall Risk Level 0 - 2 = Low Risk Oriented to surroundings, Maintained a safe environment. Abuse screen: Denies threats or abuse. Nutritional screening: No deficits noted. Tuberculosis screening: No symptoms or risk factors identified. Assessment: 01:41 Pain: Denies pain. Neuro: No deficits noted. Vital Signs: 12/27 21:42 BP 130 / 81; Pulse 101; Resp 16; Pulse Ox 100% on R/A; iw 23:27 BP 122 / 78; Pulse 77; Resp 18; Pulse Ox 100% ; cp4 12/28 01:41 BP 136 / 92; Pulse 78; Resp 18; Pulse Ox 98% on R/A; [place] Coma Score: 12/27 21:51 Eye Response: spontaneous(4). Motor Response: obeys commands(6). Verbal Response: sw6 oriented(5). Total: 15. NIH Stroke Scale Scores: 21:51 NIHSS Score: 4 sw6 ED Course: 21:23 Patient arrived in ED. jj6 21:24 Shanda Wheat MD is Attending Physician. sw6 21:41 Triage completed. iw 21:42 Arm band placed on. iw 22:13 Stroke CXR 1 View In Process Unspecified. EDMS 22:27 Basic Metabolic Panel Sent. vk 22:27 CBC with Diff Sent. vk 22:27 Hepatic Function Sent. vk 22:27 Ptt, Activated Sent. vk 22:27 Protime (+inr) Sent. vk 22:27 Magnesium Sent. vk 22:27 High Sensitivity Troponin Sent. vk 22:27 Inserted saline lock: 20 gauge in right antecubital area, using aseptic technique. vk Blood collected. Flushed with 10 mL NS. 22:27 Initial lab(s) drawn, by me, sent to lab. EKG done, by ED staff. vk 22:48 Cari Powers is Primary Nurse. cp4 22:55 CT Head Angio In Process Unspecified. EDMS 22:55 CT Neck Angio In Process Unspecified. EDMS 22:55 Head Brain Wo Cont In Process Unspecified. EDMS 03/27 01:41 No provider procedures requiring assistance completed. IV discontinued, intact, iggy bleeding controlled, No redness/swelling at site. Pressure dressing applied. Administered Medications: 00:56 Drug: metoCLOPramide IVP 10 mg IVP once; over 1 to 2 minutes Route: IVP; Site: right vc1 antecubital; 00:56 Drug: diphenhydrAMINE IVP 25 mg IVP once Route: IVP; Site: right antecubital; vc1 Outcome: 01:33 Discharge ordered by MD. enamorado 01:41 Discharged to home ambulatory, 01:41 Condition: improved 01:41 Discharge instructions given to patient, Instructed on discharge instructions, follow up and referral plans. Demonstrated understanding of instructions, follow-up care, 01:44 Patient left the ED. iggy NIH Stroke Scale - NIH Stroke Score Date: 12/27/2024 Time: 21:51 Total Score = 4 10. Dysarthria (speech clarity - read or repeat words) - 0(Normal) 11. Extinction and Inattention (visual/tactile/auditory/spatial/personal) - 0(No abnormality) 1a. Level of Consciousness (LOC) - 0(Alert) 1b. Level of Consciousness (LOC) (Month \T\ Age) - 0(Both) 1c. LOC Commands (Open \T\ Closes Eyes/Manager Research) - 0(Both) 2. Best Gaze (Lateral Gaze Paresis) - 0(Normal) 3. Visual Field Loss - 0(No visual loss) 4. Facial Palsy - 0(Normal) 5a. Left Arm: Motor (10-second hold) - 0(No drift) 5b. Right Arm: Motor (10-second hold) - 0(No drift) 6a. Left Leg: Motor (5-second hold - always test supine) - 2(Drift, some effort against gravity) 6b. Right Leg: Motor (5-second hold - always test supine) - 2(Drift, some effort against gravity) 7. Limb Ataxia (finger/nose \T\ heel/clark - test with eyes open) - 0(Absent) 8. Sensory Loss (pinprick arms/legs/face) - 0(Normal) 9. Best Language: Aphasia (description/naming/reading) - 0(No aphasia) Initials: sw Signatures: Dispatcher [employer] EDNella Cotton RN RN kl Williams, Irene, RN RN iw Jeffries Tanya jj6 Kimmy Villanueva RN RN vc1 Cari Powers cp4 Aarti Clark Sandra, MD MD sw6 Corrections: (The following items were deleted from the chart) 12/27 21:43 21:42 Allergies: No Known Allergies; [facility]
[2024-12-28 02:18] VITALS: BP 136/92; O2SAT 98
--- NOTE | 2025-01-01 11:35 | EKG ---
Test Date: 2024-12-27 Test Time: 22:11:28 Optoelectronics Engineer: MICHAEL MEASUREMENT RESULTS: Intervals: Rate: 77 IL: 182 QRSD: 74 QT: 366 QTc: 414 [place]: P: 41 IL: 182 QRS: 5 T: 36 INTERPRETIVE STATEMENTS: Normal sinus rhythm Low voltage QRS Septal infarct, age undetermined Abnormal ECG Compared to ECG 06/17/2019 06:27:56 Low QRS voltage now present Myocardial infarct finding still present Electronically Signed On 01-01-25 11:24:38 CDT by Kurtis Harrington
== END 2024-12-28 01:44 | disposition home or self-care (01) ==
LOC: ER 21:21
DX: G43.009 Migraine without aura, not intractable, without status migrainosus (principal); I10 Essential (primary) hypertension; Z94.4 Liver transplant status
CPT/HCPCS: 93005; 85025; 80048; 36415; 83735; 85610; 82565; 82947; 80076; 85730; 84484; 70450; 70496; 70498; 71045; 96375; 96374; 99284; Q9967; J2765; J1200